=== PATIENT | female | born 1970 | race Caucasian/White ===

== ENCOUNTER 2019-05-23 14:52 | Emergency (ER) | payer OTHER ==
--- OUTSIDE RECORDS SUMMARY | 2019-05-23 14:54 | XMS REPORT | Summary of Care ---
:1970 Author Organization [facility] Address [address] [place] [id number] Care Team Providers Name Role Phone Pcp, Patient Does Not Have A Primary Care Provider Reason for Visit Reason Comments Assessment Rx Concern/Question Encounter Details Date Type Department Care Team Description 01/17/2019 Telephone [facility] FuentesNan MD Assessment; Rx Healthcare- [address] Concern/Question [address] [place] [address], [address] [place] [id number] Allergies Active Allergy Reactions Severity Noted Date Comments Penicillin Unknown - See comments 08/01/2015 documented as of this encounter (statuses as of 01/17/2019) Medications Medication Sig Dispensed Refills Start Date End Date Status FUROSEMIDE (LASIX ORAL) Take by mouth. 0 Active metoprolol Take by mouth. 0 Active chatman-hydrochlorothiaz (DUTOPROL) 50-12.5 mg Tb24 metformin ER Take 500 mg by 0 Active (GLUCOPHAGE-XR) 500 mg mouth daily with 24 hr tablet breakfast. SACCHAROMYCES BOULARDII Take by mouth. 0 Active (PROBIOTIC, S.BOULARDII, ORAL) NUTRITIONAL Take by mouth. 0 Active SUPPLEMENT/FIBER (FIBRE ORAL) aspirin E.C. (ECOTRIN) Take 325 mg by 0 Active 325 mg EC tablet mouth daily. Magnesium (MAGNACAPS) Take by mouth. 0 Active 100 mg Cap acetaminophen-codeine Take 1 tablet by 20 tablet 0 01/15/2019 Active 300-30 mg mouth every 4 tabletIndications: (four) hours as Hydrosalpinx needed for Pain (scale 7-10). diazePAM 5 mg tablet TAKE 1 TABLET BY 0 12/22/2018 Active MOUTH TWICE DAILY NEEDED. tiZANidine 4 mg tablet TAKE 1 TABLET BY 2 11/10/2018 Active MOUTH EVERY 6 HOURS NEEDED verapamil 180 mg ER TAKE 1 TABLET BY 2 12/24/2018 Active tablet MOUTH ONCE DAILY levothyroxine 150 mcg TAKE 1 TABLET BY 4 11/25/2018 Active tablet MOUTH ONCE DAILY amitriptyline 100 mg Take 100 mg by 0 Active tablet mouth at bedtime. ferrous sulfate (SLOW FE Take by mouth. 0 Active ORAL) DULCOLAX, BISACODYL, Take by mouth. 0 Active ORAL norgestimate-ethinyl Take 1 tablet by 4 Package 0 01/16/2019 Active estradiol 0.25-35 mg-mcg mouth daily. per tabletIndications: Abdominal pain, right lower quadrant documented as of this encounter (statuses as of 01/17/2019) Active Problems Problem Noted Date Leg pain, left 08/01/2015 documented as of this encounter (statuses as of 01/17/2019) Social History Tobacco Use Types Packs/Day Years Used Date Never Smoker Smokeless Tobacco: Never Used Alcohol Use Drinks/Week oz/Week Comments Never 0 Standard drinks or equivalent 0.0 Alcohol Habits Answer Date Recorded How often do you have a drink containing alcohol? Never 01/16/2019 How many drinks containing alcohol do you have on a typical Not asked day when you are drinking? How often do you have six or more drinks on one occasion? Not asked Sex Assigned at Date Recorded Not on file Job Start Date Occupation Industry Not on file Not on file Not on file Travel History Travel Start Travel End No recent travel history available. documented as of this encounter Last Filed Vital Signs Not on filedocumented in this encounter Plan of Treatment Date Type Specialty Care Team Description 01/23/2019 Office Visit Obstetrics & Gynecology Nan Fuentes MD [address] [place] [address] [place] [address] [phone] Health Maintenance Due Date Last Done Comments DTaP,Tdap,and Td Vaccines ( - 01/29/1988 Tdap) PAP SMEAR 1990 MAMMOGRAM 2009 INFLUENZA VACCINE (#1) 2019 PNEUMOCOCCAL 0-64 YEARS COMBINED Aged Out No longer eligible based on SERIES patient's age to complete this topic documented as of this encounter Results Not on filedocumented in this encounter
--- OUTSIDE RECORDS SUMMARY | 2019-05-23 14:54 | XMS REPORT ---
:1970 Author Organization [facility] Address [address] [place] [address] [address] [place] [address] Care Team Providers Name Role Phone Unavailable Unavailable Unavailable Problems This patient has no known problems. Allergies, Adverse Reactions, Alerts This patient has no known allergies or adverse reactions. Medications This patient has no known medications.
--- OUTSIDE RECORDS SUMMARY | 2019-05-23 14:54 | XMS REPORT | Summary of Care ---
:1970 Author Organization [facility] Address [address] [place] [address] Care Team Providers Name Role Phone Pcp, Patient Does Not Have A Primary Care Provider Reason for Referral Radiology Services (STAT) Status Reason Specialty Diagnoses / Referred By Referred To Procedures Contact Contact New Request Diagnostic Diagnoses RLQ abdominal pain Arcos, Jennifer Radiology Procedures US OVARY TORSION R, EMNP [address] [address] Radiology Services (STAT) Status Reason Specialty Diagnoses / Referred By Referred To Procedures Contact Contact New Request Diagnostic Diagnoses RLQ abdominal pain Arcos, Jennifer Radiology Procedures US OVARY TORSION R, EMNP [address] [address] MRI/CAT Scan (STAT) Status Reason Specialty Diagnoses / Referred By Referred To Procedures Contact Contact New Request Diagnostic Diagnoses Generalized abdominal pain Arcos, Jennifer Radiology Procedures CT ABDOMEN PELVIS W CONTRAST R, EMNP [address] [address] MRI/CAT Scan (STAT) Status Reason Specialty Diagnoses / Referred By Referred To Procedures Contact Contact New Request Diagnostic Diagnoses Generalized abdominal pain Arcos, Jennifer Radiology Procedures CT ABDOMEN PELVIS W CONTRAST R, EMNP [address] [address] Reason for Visit Reason Comments Abdominal Pain Auth/Cert Status Reason Specialty Diagnoses / Referred By Referred To Procedures Contact Contact Emergency Medicine Diagnoses LWR ABD PAIN [facility] Emergency Dept [address] [place] [address] [place] [address] Encounter Details Date Type Department Care Team Description 01/15/2019 Emergency ADC-Emergency Jennifer Arcos R, Hydrosalpinx (Primary Dx); Department EMNP Generalized abdominal pain; [address] [place] [address] [place] [address] [id number] [place], [place] [id number] Allergies Active Allergy Reactions Severity Noted Date Comments Penicillin Unknown - See comments 08/01/2015 documented as of this encounter (statuses as of 01/15/2019) Medications Medication Sig Dispensed Refills Start Date End Date Status FUROSEMIDE (LASIX ORAL) Take by mouth. 0 Active metoprolol Take by mouth. 0 Active chatman-hydrochlorothiaz (DUTOPROL) 50-12.5 mg Tb24 metformin ER Take 500 mg by 0 Active (GLUCOPHAGE-XR) 500 mg mouth daily with 24 hr tablet breakfast. levothyroxine Take 200 mcg by 0 Active (SYNTHROID) 200 mcg mouth every tablet morning. SACCHAROMYCES BOULARDII Take by mouth. 0 Active [...] as Hydrosalpinx needed for Pain (scale 7-10). documented as of this encounter (statuses as of 01/15/2019) Active Problems Problem Noted Date Leg pain, left 08/01/2015 documented as of this encounter (statuses as of 01/15/2019) Social History Tobacco Use Types Packs/Day Years Used Date Never Smoker Smokeless Tobacco: Never Used Alcohol Use Drinks/Week oz/Week Comments Not Asked 0 Standard drinks or equivalent 0.0 Sex Assigned at Date Recorded Not on file Job Start Date Occupation Industry Not on file Not on file Not on file Travel History Travel Start Travel End No recent travel history available. documented as of this encounter Last Filed Vital Signs Vital Sign Reading Time Taken Comments Blood Pressure 145/89 01/15/2019 10:03 PM CDT Pulse 80 01/15/2019 10:00 PM CDT Temperature 36.7 C (98 F) 01/15/2019 4:56 PM CDT Respiratory Rate 20 01/15/2019 10:00 PM CDT Oxygen Saturation 97% 01/15/2019 10:00 PM CDT Inhaled Oxygen Concentration - - Weight 74.4 kg (164 lb) 01/15/2019 4:56 PM CDT Height 162.6 cm (5' 4") 01/15/2019 4:56 PM CDT Body Mass Index 28.15 01/15/2019 4:56 PM CDT documented in this encounter Discharge Instructions Jennifer Cooper EMNP - 01/15/2019NO LIFE-THREATENING FINDINGS ON TODAY'S EXAM. SPECIAL INSTRUCTIONS: 1. Call Dr Fuentes's office in the morning and schedule appointment for this week 2. May take motrin 600mg every 6 hours with food for pain 3. See attached information 4. Do not take plain tylenol within 4 hours of taking Tylenol with codeine FOLLOW-UP RECOMMENDATIONS: RECOMMEND FOLLOW-UP WITH A PRIMARY CARE PROVIDER OR SPECIALIST IN 2-5 DAYS, ESPECIALLY IF NO IMPROVEMENT IN SYMPTOMS. TO FOLLOW-UP WITHIN THE [facility], TRY THESE OPTIONS (CLINIC APPOINTMENTS AVAILABLE ON [id number]-EP-TELV BASIS): 1. SCHEDULE AN APPOINTMENT ONLINE AT [email or web address] 2. OR CALL THE [facility] AT OR 3. OR CALL YOUR [facility] PHYSICIAN'S OFFICE DIRECTLY IF YOU ARE ALREADY AN ESTABLISHED [facility] PATIENT. OR, YOU MAY FOLLOW-UP WITH A PROVIDER OF YOUR CHOICE, SUCH : 1. A PHYSICIAN OF YOUR CHOICE 2. [facility], . LOCATIONS IN [facility] 3. [facility], [address] [place], [place]; RETURN TO ER FOR WORSENING OF SYMPTOMS. AttachmentsThe following attachments cannot be sent through Care Everywhere.Abdominal Pain, Adult (Dutch)Acetaminophen; Codeine tablets ( Dutch)documented in this encounter Plan of Treatment Name Type Priority Associated Diagnoses Date/Time US OVARY TORSION IMAGING STAT RLQ abdominal pain 01/15/2019 9:20 PM CDT Health Maintenance Due Date Last Done Comments DTaP,Tdap,and Td Vaccines (1 - 01/29/1988 Tdap) PAP SMEAR 1990 MAMMOGRAM 2009 INFLUENZA VACCINE (#1) 2019 PNEUMOCOCCAL 0-64 YEARS COMBINED Aged Out No longer eligible based on SERIES patient's age to complete this topic documented as of this encounter Procedures Procedure Name Priority Date/Time Associated Diagnosis Comments US OVARY TORSION STAT 01/15/2019 9:20 PM CDT RLQ abdominal pain Procedure Note - [facility], Radiant Results Inft User - 01/15/2019 9:51 PM CDT EXAM: PELVIC ULTRASOUND, TRANSABDOMINAL AND TRANSVAGINAL HISTORY: rule out torsion, see CT report; hx of partial hysterectomy COMPARISON: Same day CT abdomen and pelvis FINDINGS: UTERUS: Postsurgical changes of hysterectomy. OVARIES: Postsurgical changes of left oophorectomy. The right ovary measures 6.9 x 3.2 x 3.3 cm, volume 37 mL and demonstrates normal arterial and venous waveforms. The ovary is inseparable from an elongated hypoechoic cystic structure which measures approximately 7.4 x 3.2 x 3.6 cm. A few folded configuration with "C shapes" are best appreciated on the cine images. No definite septations are visualized. No free fluid. IMPRESSION The right ovary abuts an elongated hypoechoic cystic structure without encasement, favoring hydrosalpinx over ovarian cyst. If further imaging is necessary, consider MRI pelvis, female pelvis protocol. CT ABDOMEN PELVIS W STAT 01/15/2019 6:31 PM Generalized Results for this CONTRAST CDT abdominal pain procedure are in the results section. CBC WITH DIFFERENTIAL STAT 01/15/2019 5:27 PM Generalized Results for this CDT abdominal pain procedure are in the results section. POCT TEST DEONNA 01/15/2019 5:27 PM Generalized Results for this CDT abdominal pain procedure are in the results section. URINALYSIS STAT 01/15/2019 5:27 PM Generalized Results for this CDT abdominal pain procedure are in the results section. COMP. METABOLIC PANEL STAT 01/15/2019 5:27 PM Generalized Results for this (36703) CDT abdominal pain procedure are in the results section. LIPASE STAT 01/15/2019 5:27 PM Generalized Results for this CDT abdominal pain procedure are in the results section. documented in this encounter Results CT ABDOMEN PELVIS W CONTRAST (01/15/2019 6:31 PM CDT) Specimen Impressions Performed At PACS/VR/DOSE 1.Focal wall thickening just distal to the gastrojejunal anastomosis with mild fat stranding around this area. Enlarged mesenteric lymph nodes adjacent to and draining this area measuring up to 1.1 cm. Endoscopic evaluation is recommended. 2. A 1.7 cm cystic peritoneal nodule on the right posterolateral abdomen, indeterminate. 3.A 10.2 cm tubular structure arising from the right ovary may represent a large ovarian cyst. 4. Multiple bilateral calcified and noncalcified pulmonary nodules measure up to 5 mm, nonspecific can be seen with pneumoconiosis, calcified metastatic disease is a possibility but less likely. PET/CT also can be considered for further evaluation of these findings. Mirian Dudley MD., have reviewed this study and agree with the above report. Narrative Performed At EXAM: CT ABDOMEN AND PELVIS WITH CONTRAST PACS/VR/DOSE HISTORY: Generalized abdominal pain. COMPARISON: None. DOSE: DLP: 386 mGycm TECHNIQUE AND FINDINGS: Contiguous axial imaging from the level of the lung bases through the pubic symphysis was performed after the uncomplicated administration of 120 cc of intravenous Omnipaque contrast. Coronal and sagittal reconstructions were obtained.Auto mA and/or iterative reconstruction were used to reduce radiation dose. FINDINGS: LOWER THORAX: Bilateral multiple calcified and noncalcified nodules measure up to 5 mm. LIVER: No focal hepatic lesions.Normal contour. GALLBLADDER AND BILIARY TREE: No biliary ductal dilation.No gallbladder wall thickening. SPLEEN: No splenomegaly. PANCREAS: No ductal dilation or masses. ADRENAL GLANDS: No adrenal nodules. KIDNEYS: No hydronephrosis, stones, or masses. PERITONEUM AND RETROPERITONEUM: No free air or fluid. A 1.7 cm fluid attenuation structure arises from the peritoneum (3:67). LYMPH NODES: No lymphadenopathy. GI TRACT: Postsurgical changes of gastric bypass. Focal wall thickening is seen just distal to the gastrojejunal anastomosis (3:55) with mild fat stranding around this area. Enlarged mesenteric lymph nodes adjacent to and draining this area measuring up to 1.1 cm (3:66, 70, 71). Postsurgical changes in the small bowel is seen also at the pelvic level (3: 115-119) Normal appendix. PELVIS/BLADDER: A 10.3 x3.3 cm tubular fluid attenuation structure is seen in the right adnexal location contains a thin internal septation. This may represent an ovarian cyst . Status post hysterectomy. Bladder wall is mildly thickened likely due to underdistention. VESSELS: Unremarkable. BONES AND SOFT TISSUES: No suspicious lytic or sclerotic bony lesions. Procedure Note [facility], Radiant Results Inft User - 01/15/2019 10:26 PM CDT EXAM: CT ABDOMEN AND PELVIS WITH CONTRAST HISTORY: Generalized abdominal pain. COMPARISON: None. DOSE: DLP: 386 mGycm TECHNIQUE AND FINDINGS: Contiguous axial imaging from the level of the lung bases through the pubic symphysis was performed after the uncomplicated administration of 120 cc of intravenous Omnipaque contrast. Coronal and sagittal reconstructions were obtained. Auto mA and/or iterative reconstruction were used to reduce radiation dose. FINDINGS: LOWER THORAX: Bilateral multiple calcified and noncalcified nodules measure up to 5 mm. LIVER: No focal hepatic lesions. Normal contour. GALLBLADDER AND BILIARY TREE: No biliary ductal dilation. No gallbladder wall thickening. SPLEEN: No splenomegaly. PANCREAS: No ductal dilation or masses. ADRENAL GLANDS: No adrenal nodules. KIDNEYS: No hydronephrosis, stones, or masses. PERITONEUM AND RETROPERITONEUM: No free air or fluid. A 1.7 cm fluid attenuation structure arises from the peritoneum (3:67). LYMPH NODES: No lymphadenopathy. GI TRACT: Postsurgical changes of gastric bypass. Focal wall thickening is seen just distal to the gastrojejunal anastomosis (3:55) with mild fat stranding around this area. Enlarged mesenteric lymph nodes adjacent to and draining this area measuring up to 1.1 cm (3:66, 70, 71). Postsurgical changes in the small bowel is seen also at the pelvic level (3: 115-119) Normal appendix. PELVIS/BLADDER: A 10.3 x3.3 cm tubular fluid attenuation structure is seen in the right adnexal location contains a thin internal septation. This may represent an ovarian cyst . Status post hysterectomy. Bladder wall is mildly thickened likely due to underdistention. VESSELS: Unremarkable. BONES AND SOFT TISSUES: No suspicious lytic or sclerotic bony lesions. IMPRESSION 1. Focal wall thickening just distal to the gastrojejunal anastomosis with mild fat stranding around this area. Enlarged mesenteric lymph nodes adjacent to and draining this area measuring up to 1.1 cm. Endoscopic evaluation is recommended. 2. A 1.7 cm cystic peritoneal nodule on the right posterolateral abdomen, indeterminate. 3. A 10.2 cm tubular structure arising from the right ovary may represent a large ovarian cyst. 4. Multiple bilateral calcified and noncalcified pulmonary nodules measure up to 5 mm, nonspecific can be seen with pneumoconiosis, calcified metastatic disease is a possibility but less likely. PET/CT also can be considered for further evaluation of these findings. I, Rosemarie Pruitt MD., have reviewed this study and agree with the above report. Performing Organization Address City/State/Zipcode Phone Number PACS/VR/DOSE LIPASE (01/15/2019 5:27 PM CDT) Pathologist [facility] LIPASE 46 0 - 220 U/L [facility] Specimen Blood - VENOUS Performing Organization Address City/[facility]/Zipcode Phone Number [facility] CLIA: [id number], [address] [place] [address] POCT TEST (01/15/2019 5:27 PM CDT) [facility] POCT PREG negative On board controls acceptable present with C Line POCT PREG LOT # [id number] POCT PREG TEST DATE 2020-05-15 Specimen Urine - URINE, CLEAN CATCH URINALYSIS (01/15/2019 5:27 PM CDT) Pathologist [facility] APPEARANCE Clear Clear [facility] COLOR Yellow Yellow [facility] PH 6.0 4.8 - 8.0 [facility] SP GRAVITY 1.020 1.003 - 1.030 [facility] GLU U QUAL Negative Negative [facility] BLOOD Negative Negative [facility] KETONES Negative Negative [facility] PROTEIN Negative Negative [facility] UROBILIN 0.2 mg/dL 0-1.0 mg/dL [facility] BILIRUBIN Negative Negative [facility] NITRITE Negative Negative [facility] LEUK ANNIE Negative Negative [facility] RBC/HPF 0 0 - 3 HPF [facility] WBC/HPF 1 0 - 5 HPF [facility] BACTERIA Negative Negative [facility] SQ EPITH 1 HPF [facility] CA OXALATE 1 <=1 HPF [facility] Specimen Urine - URINE, CLEAN CATCH Performing Organization Address City/State/Zipcode Phone Number [facility] CLIA: [id number], [address] [place] [address] COMP. METABOLIC PANEL (08182) (01/15/2019 5:27 PM CDT) NA 142 135 - 145 [facility] mmol/L [facility] K 3.4 (L) 3.5 - 5.0 [facility] mmol/L [facility] CL 105 98 - 108 mmol/L [facility] CO2 TOTAL 22 (L) 23 - 31 mmol/L [facility] AGAP 15 2 - 16 [facility] BUN 11 7 - 23 mg/dL [facility] GLUCOSE 104 70 - 110 mg/dL [facility] CREATININE 0.87 0.50 - 1.04 [facility] mg/dL [facility] TOTAL BILI 0.4 0.1 - 1.1 mg/dL [facility] CALCIUM 9.8 8.6 - 10.6 [facility] mg/dL [facility] T PROTEIN 7.6 6.3 - 8.2 g/dL [facility] ALBUMIN 4.2 3.5 - 5.0 g/dL [facility] ALK PHOS 112 34 - 122 U/L [facility] ALT(SGPT) 22 9 - 51 U/L [facility] AST(SGOT) 33 13 - 40 U/L [facility] eGFR Calculation 69.2 mL/min/1.73m2 [facility] ([facility] LABORATORY Jamaican) eGFR Calculation 83.9 mL/min/1.73m2 [facility] () [facility] Specimen Blood - VENOUS Narrative Performed At Association of Glomerular Filtration Rate (GFR) [facility] and Staging of Kidney Disease* + + +- + | GFR (mL/min/1.73 m2)| With Kidney Damage|Without Kidney Damage + + +- + |>90| Stage one| Normal + + +- + |60-89|S tage two| Decreased GFR + + +- + |30-59|S tage three| Stage three + + +- + |15-29|S tage four | Stage four + + +- + |<15 (or dialysis)|Stage five | Stage five + + +- + *Each stage assumes the associated GFR level has been in effect for at least three months.Stages 1 to 5, with or without kidney disease, indicate chronic kidney disease. Notes: Determination of stages one and two (with eGFR >59mL/min/1.73 m2) requires estimation of kidney damage for at least three months as defined by structural or functional abnormalities of the kidney, manifested by either: Pathological abnormalities or Markers of kidney damage (including abnormalities in the composition of the blood or urine or abnormalities in imaging tests). Performing Organization Address City/State/Zipcode Phone Number [facility] CLIA: [id number], [address] [place] [address] CBC WITH DIFFERENTIAL (01/15/2019 5:27 PM CDT) WBC 7.73 4.30 - 11.10 [facility] 10*3/L [facility] RBC 4.79 3.93 - 5.25 [facility] 10*6/L [facility] HGB 14.6 11.6 - 15.0 g/dL [facility] HCT 42.8 35.7 - 45.2 % [facility] MCV 89.4 80.6 - 95.5 fL [facility] MCH 30.5 25.9 - 32.8 pg [facility] MCHC 34.1 31.6 - 35.1 g/dL [facility] RDW-SD 42.2 39.0 - 49.9 fL [facility] RDW-CV 12.9 12.0 - 15.5 % [facility] PLT 349 166 - 358 [facility] 10*3/L [facility] MPV 9.9 9.5 - 12.9 fL [facility] NRBC/100 WBC 0.0 0.0 - 10.0 /100 [facility] WBCs [facility] NRBC x10^3 <0.01 10*3/L [facility] GRAN MAT (NEUT) % 59.9 % [facility] IMM GRAN % 0.30 % [facility] LYMPH % 31.8 % [facility] MONO % 6.3 % [facility] EOS % 0.9 % [facility] BASO % 0.8 % [facility] GRAN MAT x10^3(ANC) 4.63 1.88 - 7.09 [facility] 10*3/uL [facility] IMM GRAN x10^3 <0.03 0.00 - 0.06 [facility] 10*3/uL [facility] LYMPH x10^3 2.46 1.32 - 3.29 [facility] 103/uL [facility] MONO x10^3 0.49 0.33 - 0.[address]uL [facility] EOS x10^3 0.07 0.03 - 0.[address]/uL [facility] BASO x10^3 0.06 0.01 - 0.[address] LABORATORY Specimen Blood - VENOUS Performing Organization Address City/State/Zipcode Phone Number [facility] CLIA: [id number], [address] [place] [address] documented in this encounter Visit Diagnoses Diagnosis Hydrosalpinx - Primary Chronic salpingitis and oophoritis Generalized abdominal pain Abdominal pain, generalized RLQ abdominal pain Abdominal pain, right lower quadrant documented in this encounter Administered Medications Medication Order MAR Action Action Date Dose Rate Site acetaminophen-codeine (TYLENOL Given 01/15/2019 7:30 PM CDT 1 tablet #3) 300-30 mg tablet 1 tablet 1 tablet, Oral, ONCE, 1 dose, Tue01/15/19 at 2030, DEONNA acetaminophen-codeine (TYLENOL #3) 300-30 Given 01/15/2019 10:21 PM CDT 1 tablet mg tablet 1 tablet 1 tablet, Oral, ONCE, 1 dose, Tue01/15/19 at 2315, DEONNA cloNIDine (CATAPRES) tablet 0.2 mg Given 01/15/2019 8:35 PM CDT 0.2 mg 0.2 mg, Oral, ONCE, 1 dose, Tue01/15/19 at 2145, STAT FENTanyl PF (SUBLIMAZE (PF)) injection 50 Given 01/15/2019 9:37 PM CDT 50 mcg mcg 50 mcg, Slow IV Push, ONCE, 1 dose, Tue01/15/19 at 2245, Routine iohexol (OMNIPAQUE 350 BULK-150 mL) Given 01/15/2019 6:30 PM CDT 120 mL injection 120 mL 120 mL, Intravenous, ONCE, 1 dose, Tue01/15/19 at 1845, Routine ketorolac (TORADOL) injection 15 mg Given 01/15/2019 10:21 PM CDT 15 mg 15 mg, Slow IV Push, ONCE, 1 dose, Tue01/15/19 at 2315, Routine, sociology faculty member approving Restricted medication: JENNIFER ARCOS metoclopramide HCl (REGLAN) injection 10 mg Given 01/15/2019 10:28 PM CDT 10 mg 10 mg, Slow IV Push, ONCE, 1 dose, Tue01/15/19 at 2330, DEONNA morpHINE injection 4 mg Given 01/15/2019 5:25 PM CDT 4 mg 4 mg, Slow IV Push, ONCE, 1 dose, Tue01/15/19 at 1815, STAT morpHINE injection 4 mg Given 01/15/2019 6:04 PM CDT 4 mg 4 mg, Slow IV Push, ONCE, 1 dose, Tue01/15/19 at 1915, STAT morpHINE injection 4 mg Given 01/15/2019 7:30 PM CDT 4 mg 4 mg, Slow IV Push, ONCE, 1 dose, Tue01/15/19 at 2030, STAT NaCl 0.9% (NS) bolus infusion New Bag 01/15/2019 5:24 PM CDT 1,000 mL 999 mL/hr 1,000 mL at 999 mL/hr, 1,000 mL, IV Infusion, ONCE, 1 dose, Tue01/15/19 at 1730, DEONNA ondansetron (ZOFRAN (PF)) injection 4 mg Given 01/15/2019 5:25 PM CDT 4 mg 4 mg, Slow IV Push, ONCE, 1 dose, Tue01/15/19 at 1815, DEONNA ondansetron (ZOFRAN (PF)) injection 4 mg Given 01/15/2019 7:37 PM CDT 4 mg 4 mg, Slow IV Push, ONCE, 1 dose, Tue01/15/19 at 2045, DEONNA documented in this encounter
--- OUTSIDE RECORDS SUMMARY | 2019-05-23 14:54 | XMS REPORT | Summary of Care ---
:1970 Author Organization [facility] - Health Address [address] [place] [address] Care Team Providers Name Role Phone Pcp, Patient Does Not Have A Primary Care Provider Encounter Details Date Type Department Care Team Description 01/16/2019 Orders Only [facility] Doctor Unassigned, No 301 [facility] [place] [address] [address] [place] [address] Allergies Active Allergy Reactions Severity Noted Date Comments Penicillin Unknown - See comments 08/01/2015 documented as of this encounter (statuses as of 01/16/2019) Medications Medication Sig Dispensed Refills Start Date [...] as of this encounter (statuses as of 01/16/2019) Active Problems Problem Noted Date Leg pain, left 08/01/2015 documented as of this encounter (statuses as of 01/16/2019) Social History Tobacco Use Types Packs/Day Years [...] filedocumented in this encounter Plan of Treatment Health Maintenance Due Date Last Done Comments DTaP,Tdap,and Td Vaccines (1 - 01/29/1988 Tdap) PAP SMEAR 1990 MAMMOGRAM 2009 INFLUENZA VACCINE (#1) 2019 PNEUMOCOCCAL 0-64 YEARS COMBINED Aged Out No longer eligible based on SERIES patient's age to complete this topic documented as of this encounter Procedures Procedure Name Priority Date/Time Associated Diagnosis Comments ASSIGNMENT OF BENEFITS Routine 01/16/2019 12:59 PM CDT documented in this encounter Results Not on filedocumented in this encounter
--- OUTSIDE RECORDS SUMMARY | 2019-05-23 14:55 | XMS REPORT | Summary of Care ---
:1970 Author Organization [facility] - Health Address [address] [place] [address] Care Team Providers Name Role Phone Pcp, Patient Does Not Have A Primary Care Provider Encounter Details Date Type Department Care Team Description 01/17/2019 Orders Only [facility] Doctor Unassigned, No 301 [facility] [place] [address] [address] [place] [address] Allergies Active Allergy Reactions Severity Noted Date [...] Visit Obstetrics & Gynecology Nan Fuentes MD [address] [place] [address] [address] [place], [place] [id number] Health Maintenance Due Date Last Done Comments DTaP,Tdap,and Td Vaccines (1 - 01/29/1988 Tdap) PAP SMEAR 1990 MAMMOGRAM 2009 INFLUENZA VACCINE (#1) 2019 PNEUMOCOCCAL 0-64 YEARS COMBINED Aged Out No longer eligible based on SERIES patient's age to complete this topic documented as of this encounter Procedures Procedure Name Priority Date/Time Associated Diagnosis Comments NOTICE OF PRIVACY Routine 01/17/2019 3:01 PM CDT PRACTICES CONSENT/REFUSAL FOR Routine 01/17/2019 3:01 PM CDT DIAGNOSIS AND TREATMENT documented in this encounter Results Not on filedocumented in this encounter
--- OUTSIDE RECORDS SUMMARY | 2019-05-23 14:55 | XMS REPORT | Summary of Care ---
:1970 Author Organization [facility] Address [address] [place] [address] Care Team Providers Name Role Phone Pcp, Patient Does Not Have A Primary Care Provider Reason for Visit Reason Comments ER F/U Encounter Details Date Type Department Care Team Description 01/16/2019 Office Visit [facility] Women's FuentesNan MD Abdominal pain, right lower quadrant (Primary Dx); Healthcare- [address] Pelvic [address] 208 [facility] 208 [place] [address] [phone] Allergies Active Allergy Reactions Severity Noted Date Comments Penicillin Unknown - See comments 08/01/2015 documented as of this encounter (statuses as of 01/18/2019) Medications Medication Sig Dispensed Refills Start Date End Date Status FUROSEMIDE (LASIX Take by 0 Suspended ORAL) mouth. metoprolol Take by 0 Suspended chatman-hydrochlorothiaz mouth. (DUTOPROL) 50-12.5 mg Tb24 metformin ER Take 500 mg 0 Suspended (GLUCOPHAGE-XR) 500 by mouth mg 24 hr tablet daily with breakfast. levothyroxine Take 200 mcg 0 01/16/2019 Discontinued (SYNTHROID) 200 mcg by mouth tablet every morning. SACCHAROMYCES Take by 0 Suspended BOULARDII mouth. (PROBIOTIC, S.BOULARDII, ORAL) NUTRITIONAL Take by 0 Suspended SUPPLEMENT/FIBER mouth. (FIBRE ORAL) aspirin E.C. Take 325 mg 0 Suspended (ECOTRIN) 325 mg EC by mouth tablet daily. Magnesium Take by 0 Suspended (MAGNACAPS) 100 mg mouth. Cap acetaminophen-codein Take 1 tablet 20 tablet 0 01/15/2019 Suspended e 300-30 mg by mouth tabletIndications: every 4 Hydrosalpinx (four) hours as needed for Pain (scale 7-10). diazePAM 5 mg tablet TAKE 1 TABLET 0 12/22/2018 Suspended BY MOUTH TWICE DAILY NEEDED. estradiol 1 mg TAKE 1 TABLET 2 12/24/2018 01/16/2019 Discontinued tablet BY MOUTH ONCE DAILY FOR 30 DAYS tiZANidine 4 mg TAKE 1 TABLET 2 11/10/2018 Suspended tablet BY MOUTH EVERY 6 HOURS NEEDED verapamil 180 mg ER TAKE 1 TABLET 2 12/24/2018 Suspended tablet BY MOUTH ONCE DAILY levothyroxine 150 TAKE 1 TABLET 4 11/25/2018 Suspended mcg tablet BY MOUTH ONCE DAILY amitriptyline 100 mg Take 100 mg 0 Suspended tablet by mouth at bedtime. ferrous sulfate Take by 0 Suspended (SLOW FE ORAL) mouth. DULCOLAX, BISACODYL, Take by 0 Suspended ORAL mouth. norgestimate-ethinyl Take 1 tablet 4 Package 0 01/16/2019 Suspended estradiol 0.25-35 by mouth mg-mcg per daily. tabletIndications: Abdominal pain, right lower quadrant documented as of this encounter (statuses as of 01/18/2019) Active Problems Problem Noted Date Abdominal pain 01/17/2019 Leg pain, left 08/01/2015 documented as of this encounter (statuses as of 01/18/2019) Social History Tobacco Use Types Packs/Day Years [...] Sign Reading Time Taken Comments Blood Pressure 141/92 01/16/2019 2:30 PM CDT Pulse 84 01/16/2019 2:30 PM CDT Temperature 36.8 C (98.2 F) 01/16/2019 1:12 PM CDT Respiratory Rate 20 01/16/2019 1:12 PM CDT Oxygen Saturation - - Inhaled Oxygen Concentration - - Weight 76.7 kg (169 lb) 01/16/2019 1:12 PM CDT Height 162.6 cm (5' 4") 01/16/2019 1:12 PM CDT Body Mass Index 29.01 01/16/2019 1:12 PM CDT documented in this encounter Progress Notes Nan Fuentes MD - 01/16/2019 1:00 PM CDT Chief complaint: Chief Complaint Patient presents with ER F/U HPI Deena Douglass is a 48 year old female presented for ER follow-up. Patient was seen at [facility] ER on 01/15/19 for RLQ abdominal pain. Pain since 01/03/19, located in the RLQ. Pain got worse since Tuesday (4 days ago ). Stabbing, constant, walking makes it worse, improved with morphine and fentanyl in the ER. Took Tylenol and Ibuprofenand Tylenol #3 x 2 prior to this visit. Was 10/10 in severity before the medications and currently 8/10. A couple of years ago, experienced the same pain but not as severe. States that she experience similar pain, but not as bad, for 5-7 days each month, which coincide with her daughter's period. But now the pain continues even when her daughter is not on her period. + Nausea. No vomiting. Yesterday, BM soft and normal. Denies UTIs symptoms. Histories OB History Para Term AB Living 1 1 1 SAB TAB Ectopic Multiple Live Births 1 # Outcome Date GA Lbr Tor/2nd Weight Sex Delivery Anes PTL Lv 1 29w0d 1389 g CS-Unspec Obstetric Comments Past Medical History: Diagnosis Date Anemia during Anesthesia complication Does not stay under CHF (congestive heart failure) Diabetes mellitus Resolved Endometriosis Hypertension 05/2018 Leg pain, left 08/01/2015 Lung nodules Thyroid disease Hypothyroid Family History Problem Relation Age of Onset [place] (myocardial infarction) Mother Heart Mother Breast Cancer Maternal Grandmother Breast Cancer Paternal Grandmother Arthritis NoFHx Asthma NoFHx defects NoFHx Colon Cancer NoFHx Ovarian Cancer NoFHx Uterine Cancer NoFHx Cancer NoFHx Depression NoFHx Diabetes NoFHx Genetic NoFHx High cholesterol NoFHx Hypertension NoFHx Mental retardation NoFHx Neurological NoFHx Osteoporosis NoFHx Psychiatry NoFHx Other - see comments NoFHx Family Status Relation Name Status Mo Alive Fa MGMo (Not Specified) PGMo (Not Specified) NoFHx (Not Specified) Past Surgical History: Procedure Laterality Date SECTION COLONOSCOPY 2016 Arteaga / unsure HYSTERECTOMY LAPAROSCOP GASTRIC BYPASS Mar 2018 complete bypass SALPINGO-OOPHORECTOMY Left Side Social History Socioeconomic History Marital status: Spouse name: Not on file Number of children: Not on file Years of education: Not on file Highest education level: Not on file Occupational History Not on file Social Needs Financial resource strain: Not on file Food insecurity: Worry: Not on file Inability: Not on file Transportation needs: Medical: Not on file Non-medical: Not on file Tobacco Use Smoking status: Never Smoker Smokeless tobacco: Never Used Substance and Sexual Activity Alcohol use: Never Alcohol/week: 0.0 oz Frequency: Never Drug use: Never Sexual activity: Not Currently Lifestyle Physical activity: Days per week: Not on file Minutes per session: Not on file Stress: Not on file Relationships Social connections: Talks on phone: Not on file Gets together: Not on file Attends presybeterian service: Not on file Active member of club or organization: Not on file Attends meetings of clubs or organizations: Not on file Relationship status: Not on file Intimate partner violence: Fear of current or ex partner: Not on file Emotionally abused: Not on file Physically abused: Not on file Forced sexual activity: Not on file Other Topics Concern Not on file Social History Narrative Denies domestic or physical violence within the home Evangelical Preference: Confucianism Social History Substance and Sexual Activity Sexual Activity Not Currently Labs I have reviewed the patient's labs. Radiology EXAM: CT ABDOMEN AND PELVIS WITH CONTRAST on 01/15/19 HISTORY: Generalized abdominal pain. COMPARISON: None. DOSE: [...] considered for further evaluation of these findings. EXAM: PELVIC ULTRASOUND, TRANSABDOMINAL AND TRANSVAGINAL on 01/15/19 HISTORY: rule out torsion, see CT report; hx of partial hysterectomy COMPARISON: Same day CT abdomen and pelvis FINDINGS: UTERUS: Postsurgical changes of hysterectomy. OVARIES: Postsurgical changes of left oophorectomy. A tubular anechoic structure measuring approximately 7.3 x 3.2 cm is seen in the right lower quadrant with weak vascular flow is detected peripherally. No separate right ovary is identified. No free fluid. IMPRESSION A tubular anechoic structures in the right lower quadrant with weak vascular flow peripherally. No separate right ovary is identified. Ovarian torsion cannot be excluded. Allergies Deena is allergic to penicillin. Medications Deena has a current medication list which includes the following prescription( s): amitriptyline, diazepam, bisacodyl, estradiol, ferrous sulfate, levothyroxine, acetaminophen-codeine, nutritional supplement/fiber, tizanidine, verapamil, aspirin e.c., furosemide, magnesium, metformin er, metoprolol chatman- hydrochlorothiaz, and saccharomyces boulardii. Review of Systems Constitutional: Negative for fever. Gastrointestinal: See HPI Genitourinary: See HPI BP (!) 150/95 (BP Location: Left arm, Patient Position: Sitting, BP CUFF SIZE: Adult Medium) | Pulse 89 | Temp 36.8 C (98.2 F) (Oral) | Resp 20 | Ht 5 ' 4" (1.626 m) | Wt 169 lb (76.7 kg) | BMI 29.01 kg/m Pregravid BMI: Could not be calculated Physical Exam Vitals reviewed. Constitutional: She is oriented to person, place, and time. Her body habitus is obese. Cardiovascular: Regular rate and rhythm. Pulmonary/Chest: Breath sounds clear to auscultation. Normal inspiratory effort. Abdominal: Abdomen is soft. Tenderness (in the RLQ) present. There is no rigidity and no guarding. No hernia palpated or inspected. Multiple surgical scars, no rebound, active BS Neuro/Psychiatric: She has a normal mood and affect. She is oriented to person, place, and time. Skin: Skin normal. No rash present. External genitalia: Normal external genitalia appropriate for age. Cervix: Cervix absent. Uterus: Uterus absent. Adnexa: Right adnexa tenderness. Left adnexa without tenderness or mass. Assessment/Plan Abdominal pain, right lower quadrant (primary encounter diagnosis) Pelvic mass Comment: RLQ pain may be secondary to the pelvic mass noted on imaging as above. Pelvic mass can behydrosalpinx versus ovarian cyst and torsion cannot be excluded. Abdominal exam today revealed mildtenderness on palpation; no acute abdomen on exam. Discussed extensively with patient, her ,and her daughter regarding findings pertaining to her pelvic mass and discuss treatment options including observation and repeating the USG in a couple of weeks to assess the mass versus surgery if pain persists/worsens. Risks/benefits discussed. Patient elected for expectant management at this time. Strong ER precautions given. Also, patient reports monthly pain that coincided with her daughter's period. Pain may also have a component of Mittleschmerz. Discussed about OCPs for ovarian suppression. Patient is currently taking estradiol 1 mg daily for vasomotor symptoms. Discussed that she needs to discontinue estradiol ifgoing to start OCPs. Patient denies self or family history of thromboembolic disease or thrombophilia , migraine headache. States that she does have occasional severe ROMAN sometimes but it is not migraines. Risks include but not limited to increase risk of thromboembolic disease, headache, weight gain, mood lability, and breast cancer. Decrease risks of ovarian cancer, colon cancer, and endometrial cancer. Patient desires a trial of OCPs Plan: norgestimate-ethinyl estradiol 0.25-35 mg-mcg per tablet; Tylenol/Motrin/Tylenol #3 PRN pain Return to clinic in 1 weeks for follow-up Discussed treatment options. Medications as ordered. Reviewed patient instructions and provided printed copy. This visit involved counseling and coordination of care that comprised more than 50% of the visit time. I spent 60+ minute(s) total time with the patient. Of that time, 25 minute(s) was spent on history and exam, and 35+ minute(s) was spent counseling the patient regarding risks and benefits of treatment, surgical options, treatment options and prevention. Nan Fuentes MD 01/18/2019 2:04 AM documented in this encounter Plan of Treatment Date Type Specialty Care Team Description 01/23/2019 Office Visit Obstetrics & Gynecology Nan Fuentes MD [address] [place] [address] [place] [address] Health Maintenance Due Date Last Done Comments DTaP,Tdap,and Td Vaccines (1 - 01/29/1988 Tdap) PAP SMEAR 1990 MAMMOGRAM 2009 INFLUENZA VACCINE (#1) 2019 PNEUMOCOCCAL 0-64 YEARS COMBINED Aged Out No longer eligible based on SERIES patient's age to complete this topic documented as of this encounter Results Not on filedocumented in this encounter Visit Diagnoses Diagnosis Abdominal pain, right lower quadrant - Primary Pelvic mass Abdominal or pelvic swelling, mass or lump, unspecified site documented in this encounter
--- OUTSIDE RECORDS SUMMARY | 2019-05-23 14:55 | XMS REPORT | Summary of Care ---
:1970 Author Organization [facility] Address [address] [place] [address] Care Team Providers Name Role Phone Pcp, Patient Does Not Have A Primary Care Provider Reason for Visit Reason Comments ER F/U Encounter Details Date Type Department Care Team Description 01/16/2019 Office Visit [facility] Women's FuentesNan MD Abdominal pain, right lower quadrant (Primary Dx); Healthcare- [address] Pelvic [address] 208 [facility] 208 [place] [address] [phone] Allergies Active Allergy Reactions Severity Noted Date [...] for ER follow-up. Patient was seen at [facility] ER on 01/15/19 for RLQ abdominal pain. [...] file Gets together: Not on file Attends latter day service: Not on file Active member of [...] domestic or physical violence within the home Jain Preference: Protestant Social History Substance and Sexual Activity Sexual [...] Visit Obstetrics & Gynecology Nan Fuentes MD [address] [place] [address] [place] [address] Health Maintenance Due Date Last [...]
--- OUTSIDE RECORDS SUMMARY | 2019-05-23 14:56 | XMS REPORT | Summary of Care ---
:1970 Author Organization [facility] - Health Address [address] [place] [id number] Care Team Providers Name Role Phone Marti Morocho Primary Care Provider Reason for Visit Reason Comments Transition Of Care Encounter Details Date Type Department Care Team Description 01/23/2019 Transition of Care [facility] Ashlee Clarek, Transition Of Care Health Network- RN [address] [id number] Allergies Active Allergy Reactions Severity Noted Date Comments Penicillin Unknown - See comments 08/01/2015 documented as of this encounter (statuses as of 01/23/2019) Medications Medication Sig Dispensed Refills Start Date [...] by mouth. 0 Active 100 mg Cap diazePAM 5 mg tablet TAKE 1 TABLET [...] tablet mouth at bedtime. ferrous sulfate (SLOW Take by mouth. 0 Active FE ORAL) DULCOLAX, BISACODYL, Take by mouth. 0 Active ORAL acetaminophen 325 mg Take 2 tablets by 30 tablet 1 01/19/2019 Active tabletIndications: mouth every 6 Right lower quadrant (six) hours as abdominal pain, Pelvic needed for Pain mass (scale 1-3) or Pain (scale 4-6). HYDROcodone-acetaminoph Take 1 tablet by 15 tablet 0 01/19/2019 Active en 5-325 mg mouth every 6 tabletIndications: (six) hours as Right lower quadrant needed for Pain abdominal pain, Pelvic (scale 4-6). mass ibuprofen 600 mg Take 1 tablet by 30 tablet 1 01/19/2019 Active tabletIndications: mouth every 6 Right lower quadrant (six) hours as abdominal pain, Pelvic needed for Pain mass (scale 1-3) or Pain (scale 4-6). estradiol (ESTRACE) 1 Take 1 tablet by 60 tablet 2 01/22/2019 Active mg tabletIndications: mouth daily. Pelvic mass rivaroxaban Take 1 tablet by 30 tablet 0 01/22/2019 Active tabletIndications: Left mouth daily. arm swelling documented as of this encounter (statuses as of 01/23/2019) Active Problems Problem Noted Date Superficial venous thrombosis of arm, left 01/21/2019 Pelvic mass 01/18/2019 Obesity (BMI 30-39.9) 01/18/2019 Abdominal pain 01/17/2019 Leg pain, left 08/01/2015 documented as of this encounter (statuses as of 01/23/2019) Social History Tobacco Use Types Packs/Day Years [...] Treatment Date Type Specialty Care Team Description 01/25/2019 Nurse Visit Obstetrics & Gynecology Nan Fuentes MD [address] [place] [address] DR. Alberto LAUREL [address] [phone] Nurse, Cm Women's Health Health Maintenance Due Date Last Done Comments DTaP,Tdap,and Td Vaccines (1 - 01/29/1988 Tdap) PAP SMEAR 1990 MAMMOGRAM 2009 INFLUENZA VACCINE (#1) 2019 04/25/2017 PNEUMOCOCCAL 0-64 YEARS COMBINED Aged Out No longer eligible based on SERIES patient's age to complete this topic documented as of this encounter Results Not on filedocumented in this encounter Insurance Payer Benefit Plan / Subscriber ID Effective Phone Address Type Group Dates MEDICAID MEDICAID PENDING 2019-[address] Pending PENDING PENDING [place] [address] documented as of this encounter
--- OUTSIDE RECORDS SUMMARY | 2019-05-23 14:56 | XMS REPORT | Summary of Care ---
:1970 Author Organization [facility] Address [address] [place] [address] Care Team Providers Name Role Phone Marti Morocho Primary Care Provider Reason for Visit Reason Comments Error See by PA Encounter Details Date Type Department Care Team Description 01/25/2019 Nurse Visit [facility]'s Fuentes, Nan Bailey MD [address] [place] [address] [address]. Darci [address] [place] [address] [facility] Healthcare- [place] Nurse, [facility] ENCOUNTER--DISREGARD [address] [place] [address], (Primary Dx) [address] [place] [address] Allergies Active Allergy Reactions Severity Noted Date Comments Penicillin Unknown - See comments 08/01/2015 documented as of this encounter (statuses as of 01/25/2019) Medications Medication Sig Dispensed Refills Start Date End Date Status metoprolol Take by 0 Active chatman-hydrochlorothiaz mouth. (DUTOPROL) 50-12.5 mg Tb24 metformin ER Take 500 mg 0 Active (GLUCOPHAGE-XR) 500 by mouth mg 24 hr tablet daily with breakfast. SACCHAROMYCES Take by 0 Active BOULARDII mouth. (PROBIOTIC, S.BOULARDII, ORAL) NUTRITIONAL Take by 0 Active SUPPLEMENT/FIBER mouth. (FIBRE ORAL) diazePAM 5 mg tablet TAKE 1 TABLET 0 12/22/2018 Active BY MOUTH TWICE DAILY NEEDED. tiZANidine 4 mg TAKE 1 TABLET 2 11/10/2018 Active tablet BY MOUTH EVERY 6 HOURS NEEDED verapamil 180 mg ER TAKE 1 TABLET 2 12/24/2018 Active tablet BY MOUTH ONCE DAILY levothyroxine 150 TAKE 1 TABLET 4 11/25/2018 Active mcg tablet BY MOUTH ONCE DAILY amitriptyline 100 mg Take 100 mg 0 Active tablet by mouth at bedtime. ferrous sulfate Take by 0 Active (SLOW FE ORAL) mouth. DULCOLAX, BISACODYL, Take by 0 Active ORAL mouth. acetaminophen 325 mg Take 2 30 tablet 1 01/19/2019 Active tabletIndications: tablets by Right lower quadrant mouth every 6 abdominal pain, (six) hours Pelvic mass as needed for Pain (scale 1-3) or Pain (scale 4-6). HYDROcodone-acetamin Take 1 tablet 15 tablet 0 01/19/2019 Active ophen 5-325 mg by mouth tabletIndications: every 6 (six) Right lower quadrant hours as abdominal pain, needed for Pelvic mass Pain (scale 4-6). ibuprofen 600 mg Take 1 tablet 30 tablet 1 01/19/2019 Active tabletIndications: by mouth Right lower quadrant every 6 (six) abdominal pain, hours as Pelvic mass needed for Pain (scale 1-3) or Pain (scale 4-6). estradiol (ESTRACE) Take 1 tablet 60 tablet 2 01/22/2019 Active 1 mg by mouth tabletIndications: daily. Pelvic mass rivaroxaban Take 1 tablet 30 tablet 0 01/22/2019 Active tabletIndications: by mouth Left arm swelling daily. aspirin (ASPIRIN LOW Take 81 mg by 0 Active DOSE) 81 mg EC mouth daily. tablet FUROSEMIDE (LASIX Take by 0 01/25/2019 Discontinued ORAL) mouth. aspirin E.C. Take 325 mg 0 01/25/2019 Discontinued (ECOTRIN) 325 mg EC by mouth tablet daily. Magnesium Take by 0 01/25/2019 Discontinued (MAGNACAPS) 100 mg mouth. Cap documented as of this encounter (statuses as of 01/25/2019) Active Problems Problem Noted Date Superficial venous thrombosis of arm, left 01/21/2019 Pelvic mass 01/18/2019 Obesity (BMI 30-39.9) 01/18/2019 Abdominal pain 01/17/2019 Leg pain, left 08/01/2015 documented as of this encounter (statuses as of 01/25/2019) Social History Tobacco Use Types Packs/Day Years [...] Sign Reading Time Taken Comments Blood Pressure 121/80 01/25/2019 11:23 AM CDT Pulse 96 01/25/2019 11:23 AM CDT Temperature 36.8 C (98.2 F) 01/25/2019 11:23 AM CDT Respiratory Rate 18 01/25/2019 11:23 AM CDT Oxygen Saturation - - Inhaled Oxygen Concentration - - Weight 78.4 kg (172 lb 12.8 oz) 01/25/2019 11:23 AM CDT Height 162.6 cm (5' 4") 01/25/2019 11:23 AM CDT Body Mass Index 29.66 01/25/2019 11:23 AM CDT documented in this encounter Plan of Treatment Date Type Specialty Care Team Description 01/25/2019 Office Visit Obstetrics & Gynecology Inga Valdes PA-C [address] [place] [address] [phone] 02/26/2019 Office Visit Obstetrics & Gynecology Nan Fuentes MD [address] [place] [address] [phone] Health Maintenance Due Date Last Done Comments DTaP,Tdap,and Td Vaccines (1 - 01/29/1988 Tdap) PAP SMEAR 1990 MAMMOGRAM 2009 INFLUENZA VACCINE (#1) 2019 04/25/2017 PNEUMOCOCCAL 0-64 YEARS COMBINED Aged Out No longer eligible based on SERIES patient's age to complete this topic documented as of this encounter Results Not on filedocumented in this encounter Visit Diagnoses Diagnosis ERRONEOUS ENCOUNTER--DISREGARD - Primary documented in this encounter Insurance Payer Benefit Plan / Subscriber ID Effective Phone Address Type Group Dates MEDICAID MEDICAID PENDING 2019-[address] [place] [address] documented as of this encounter
--- OUTSIDE RECORDS SUMMARY | 2019-05-23 14:56 | XMS REPORT | Summary of Care ---
:[address] [facility] - Health Address [address] [place] [address] Care Team Providers Name Role Phone Marti Morocho Primary Care Provider Reason for Visit Reason Comments Transition Of Care Encounter Details Date Type Department Care Team Description 01/23/[address] [facility] Ashlee Clarke, Transition Of Care Health Network- RN [address] [id number] Allergies Active Allergy Reactions Severity Noted Date [...] Visit Obstetrics & Gynecology Nan Fuentes MD [address] [place] [address] DR. Alberto LAUREL [address] [phone] Nurse, Cm Women's Health Health Maintenance Due [...] Address Type Group Dates MEDICAID MEDICAID PENDING 2019-[address] Pending PENDING [place] [address] documented as of this encounter
--- OUTSIDE RECORDS SUMMARY | 2019-05-23 14:56 | XMS REPORT | Summary of Care ---
:1970 Author Organization [facility] Address [address] [place] [address] Care Team Providers Name Role Phone Marti Morocho Primary Care Provider Reason for Visit Reason Comments Error See by PA Encounter Details Date Type Department Care Team Description 01/25/2019 Nurse Visit [facility]'s Fuentes, Nan Bailey MD [address] [place] [address] [address]. Darci [address] [place] [address] [facility] Healthcare- [place] Nurse, [facility] ENCOUNTER--DISREGARD [address] [place] [address], (Primary Dx) [address] [place] [address] Allergies Active Allergy Reactions Severity [...] Visit Obstetrics & Gynecology Inga Valdes PA-C [address] [address] Health Maintenance Due Date Last Done Comments [...] Address Type Group Dates MEDICAID MEDICAID PENDING 2019-[address] [place] [address] documented as of this encounter
--- OUTSIDE RECORDS SUMMARY | 2019-05-23 14:56 | XMS REPORT | Summary of Care ---
:1970 Author Organization [facility] Address [address] [place] [address] Care Team Providers Name Role Phone Marti Morocho Primary Care Provider Reason for Referral (STAT) Status Reason Specialty Diagnoses / Referred By Contact Referred To Procedures Contact New Request Procedures Shabnam Meraz UNILATERAL VENOUS DUPLEX UPPER BY [address] [place] [address] VASCULAR LAB [place], [place] UNILATERAL VENOUS [id number] DUPLEX UPPER BY VASCULAR LAB (STAT) Status Reason Specialty Diagnoses / Referred By Contact Referred To Procedures Contact New Request Procedures Shabnam Meraz UNILATERAL VENOUS DUPLEX UPPER BY [address] [facility] VASCULAR [place], [place] UNILATERAL VENOUS [id number] DUPLEX UPPER BY VASCULAR LAB Radiology Services (STAT) Status Reason Specialty Diagnoses / Referred By Referred To Procedures Contact Contact New Request Diagnostic Diagnoses Pelvic pain Surinder Allen, Radiology Procedures US PELVIS COMPLETE WITH MAY WHITESIDE [address] [address] Radiology Services (STAT) Status Reason Specialty Diagnoses / Referred By Referred To Procedures Contact Contact New Request Diagnostic Diagnoses Pelvic pain Surinder Allen, Radiology Procedures US PELVIS COMPLETE WITH MAY WHITESIDE [address] [address] Reason for Visit Reason Comments ULTRASOUND Auth/Cert Status Reason Specialty Diagnoses / Referred By Referred To Procedures Contact Contact Emergency Medicine Diagnoses abdominal pain [facility] Emergency Dept [address] [place] [address] Encounter Details Date Type Department Care Team Description 01/17/2019 - Hospital Encounter [facility] Labor and Surinder Allen MD [id number] [place] [address] Abdominal pain 01/21/2019 Delivery Unit Kera Alvarez MD [address] [place] [address] [address] [place], [place] [id number] Allergies Active Allergy Reactions Severity Noted Date Comments Penicillin Unknown - See comments 08/01/2015 documented as of this encounter (statuses as of 01/21/2019) Medications Medication Sig Dispensed Refills Start Date End Date Status FUROSEMIDE (LASIX Take by 0 Active ORAL) mouth. metoprolol Take by 0 Active chatman-hydrochlorothiaz mouth. (DUTOPROL) 50-12.5 mg Tb24 metformin ER Take 500 mg 0 Active (GLUCOPHAGE-XR) 500 by mouth mg 24 hr tablet daily with breakfast. SACCHAROMYCES Take by 0 Active BOULARDII mouth. (PROBIOTIC, S.BOULARDII, ORAL) NUTRITIONAL Take by 0 Active SUPPLEMENT/FIBER mouth. (FIBRE ORAL) aspirin E.C. Take 325 mg 0 Active (ECOTRIN) 325 mg EC by mouth tablet daily. Magnesium Take by 0 Active (MAGNACAPS) 100 mg mouth. Cap diazePAM 5 mg tablet TAKE 1 [...] tabletIndications: by mouth Left arm swelling daily. acetaminophen-codein Take 1 tablet 20 tablet 0 01/15/2019 01/19/2019 Discontinued e 300-30 mg by mouth tabletIndications: every 4 Hydrosalpinx (four) hours as needed for Pain (scale 7-10). norgestimate-ethinyl Take 1 tablet 4 Package 0 01/16/2019 01/19/2019 Discontinued estradiol 0.25-35 by mouth mg-mcg per daily. tabletIndications: Abdominal pain, right lower quadrant documented as of this encounter (statuses as of 01/21/2019) Active Problems Problem Noted Date Pelvic mass 01/18/2019 Obesity (BMI 30-39.9) 01/18/2019 Abdominal pain 01/17/2019 Leg pain, left 08/01/2015 documented as of this encounter (statuses as of 01/21/2019) Social History Tobacco Use Types Packs/Day Years [...] Sign Reading Time Taken Comments Blood Pressure 155/80 01/21/2019 9:00 AM CDT Pulse 113 01/21/2019 9:00 AM CDT Temperature 36.9 C (98.4 F) 01/21/2019 9:00 AM CDT Respiratory Rate 20 01/21/2019 9:00 AM CDT Oxygen Saturation 98% 01/21/2019 9:00 AM CDT Inhaled Oxygen Concentration - - Weight 77.1 kg (170 lb) 01/17/2019 3:22 PM CDT Height 160 cm (5' 3") 01/18/2019 1:56 PM CDT Body Mass Index 30.11 01/17/2019 3:22 PM CDT documented in this encounter Discharge Summaries Sahbnam Meraz MD - 01/21/2019 12:50 PM CDT 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 SUMMARY NOTE Date of Service: 01/21/2019 Admit Date: 01/17/2019 Discharge Date: 01/21/2019 Attending MD: Kera Alvarez MD Reffering MD: [facility] PCP: Marti Morocho Reason for Admission: Abdominal pain Final Diagnosis: Pelvic mass with adhesions SECONDARY DIAGNOSIS: LUE superficial venous thrombosis Principle Procedure: Procedure(s): EXPLORATORY LAPAROTOMY Lysis of adhesions Excision of pelvic mass Significant Lab/X-rays: .Upper extremity venous study Hospital Course: Length of stay: 3 Complications developed: Patient had hypertension requiring control with the assistance of the Internal Medicine team. Additionally, on POD #2, she developed a LUE superficial venous thrombosis. Cardiology was consulted and placed the patient on Xarelto. Condition: good Diet: diabetic Activity: no strenuous activity and no heavy lifting Discharge Medications: Current Discharge Medication List START taking these medications Details estradiol (ESTRACE) 1 mg Take 1 mg by mouth daily. Qty: 60 tablet, Refills: 2 Start date: 01/22/2019 Associated Diagnoses: Pelvic mass rivaroxaban (XARELTO) 10 mg Take 10 mg by mouth daily. Qty: 30 tablet, Refills: 0 Start date: 01/22/2019 Associated Diagnoses: Left arm swelling acetaminophen (TYLENOL) 650 mg Take 650 mg by mouth every 6 (six) hours as needed for Pain (scale 1-3) or Pain (scale 4-6). Qty: 30 tablet, Refills: 1 Start date: 01/19/2019 Associated Diagnoses: Right lower quadrant abdominal pain; Pelvic mass HYDROcodone-acetaminophen (NORCO 5) 1 tablet Take 1 tablet by mouth every 6 (six ) hours as needed for Pain (scale 4-6). Qty: 15 tablet, Refills: 0 Start date: 01/19/2019 Associated Diagnoses: Right lower quadrant abdominal pain; Pelvic mass ibuprofen (IBU) 600 mg Take 600 mg by mouth every 6 (six) hours as needed for Pain (scale 1-3) or Pain (scale 4-6). Qty: 30 tablet, Refills: 1 Start date: 01/19/2019 Associated Diagnoses: Right lower quadrant abdominal pain; Pelvic mass CONTINUE these medications which have NOT CHANGED Details amitriptyline (ELAVIL) 100 mg Take 100 mg by mouth at bedtime. diazePAM 5 mg tablet TAKE 1 TABLET BY MOUTH TWICE DAILY NEEDED. Refills: 0 DULCOLAX, BISACODYL, ORAL Take by mouth. ferrous sulfate (SLOW FE ORAL) Take by mouth. levothyroxine 150 mcg tablet TAKE 1 TABLET BY MOUTH ONCE DAILY Refills: 4 tiZANidine 4 mg tablet TAKE 1 TABLET BY MOUTH EVERY 6 HOURS NEEDED Refills: 2 verapamil 180 mg ER tablet TAKE 1 TABLET BY MOUTH ONCE DAILY Refills: 2 aspirin E.C. (ECOTRIN) 325 mg Take 325 mg by mouth daily. FUROSEMIDE (LASIX ORAL) Take by mouth. Magnesium (MAGNACAPS) 100 mg Cap Take by mouth. metformin ER (GLUCOPHAGE-XR) 500 mg Take 500 mg by mouth daily with breakfast. metoprolol chatman-hydrochlorothiaz (DUTOPROL) 50-12.5 mg Tb24 Take by mouth. NUTRITIONAL SUPPLEMENT/FIBER (FIBRE ORAL) Take by mouth. SACCHAROMYCES BOULARDII (PROBIOTIC, S.BOULARDII, ORAL) Take by mouth. STOP taking these medications norgestimate-ethinyl estradiol (SPRINTEC) 1 tablet Comments: Reason for Stopping: acetaminophen-codeine (TYLENOL #3) 1 tablet Comments: Reason for Stopping: Discharge: Home. Activity restrictions given. Follow-up Appointment: Return to Dr. Alvarez in 1 week and F/U Cardiology as instructed for re-evaluation of the left arm superficial thrombosis. Shabnam Meraz MD documented in this encounter Discharge Instructions InstructionsSobebetoTainaALFONSO - 01/21/2019Please take Ferrous Sulfate 325 mg by mouth 2 times a day and Vitamin C 500mg one time per day. AttachmentsThe following attachments cannot be sent through Care Everywhere.Rivaroxaban oral tablets (Mauritanian)Abdominal Incision, Discharge Instructions: Caring for Your (Mauritanian)documented in this encounter Progress Notes Shabnam Meraz MD - 01/21/2019 12:07 PM CDT DAILY PROGRESS NOTE Hospital Day: 5 Subjective: Patient is a 48 year old female POD #3 s/p Exploratory laparotomy, ALVARO, excision of pelvic mass. Shehad a bowel movement last PM and is tolerating regular diet. She is also ambulating without difficulty. Patient continues to have pain from her left arm where her IV had been and is using a warm pack. Objective: Vital Signs: Patient Vitals for the past 24 hrs: BP Pulse Resp Temp Temp src SpO2 01/21/19 0900 (!) 155/80 113 20 36.9 C (98.4 F) Axillary 98 % 01/21/19 0558 (!) 147/71 112 18 37.1 C (98.7 F) Oral 01/21/19 0130 126/76 112 18 37 C (98.6 F) Axillary 96 % 01/20/19 2239 37.6 C (99.6 F) 01/20/19 1921 (!) 140/89 120 18 37.4 C (99.3 F) Axillary 99 % 01/20/19 1630 37.9 C (100.2 F) Axillary 01/20/19 1500 102 37.2 C (99 F) TEMPORAL ART 98 % Physical Exam General: No apparent distress Heart:regular rhythm with tachycardia this AM, no murmurs, gallops or rubs Lungs:normal Abdomen:abdomen soft, non-tender, nondistended, normal active bowel sounds, no masses or organomegaly Incision/Wound:clean, dry, without erythema or exudate Extremeties/Musculoskeletal:normal, with out edema. Neg Saeid's sign. Erythema at left arm IV site, warm, tender. Labs: CBC BMP PT/INR WBC (10*3/L) Date Value 01/21/2019 7.64 NA (mmol/L) Date Value 01/21/2019 141 No results found for: PT RBC (10*6/L) Date Value 01/21/2019 2.85 (L) K (mmol/L) Date Value 01/21/2019 3.8 INR (no units) Date Value 01/21/2019 1.4 PLT (10*3/L) Date Value 01/21/2019 186 CALCIUM (mg/dL) Date Value 01/21/2019 8.3 (L) HGB (g/dL) Date Value 01/21/2019 8.7 (L) CL (mmol/L) Date Value 01/21/2019 110 (H) aPTT HCT (%) Date Value 01/21/2019 27.4 (L) BUN (mg/dL) Date Value 01/21/2019 13 APTT Patient (Seconds) Date Value 01/21/2019 40 (H) CREATININE (mg/dL) Date Value 01/21/2019 0.78 Medications: Current Facility-Administered Medications Medication Dose Route Frequency Last Rate Last Dose metoprolol tartrate (LOPRESSOR) tablet 25 mg 25 mg Oral BID estradiol (ESTRACE) tablet 1 mg 1 mg Oral DAILY 1 mg at 01/21/19851 rivaroxaban (XARELTO) tablet 10 mg 10 mg Oral DAILY 10 mg at 01/21/19851 acetaminophen (TYLENOL) tablet 650 mg 650 mg Oral Q6H ABX 650 mg at 01/21 08 alum-mag hydroxide-simeth (MAALOX PLUS / MAG-AL PLUS) 200-200-20 mg/5 mL suspension 30 mL 30 mLOral Q6HPRN D5W-LR IV infusion 1,000 mL 1,000 mL IV Infusion CONTINUOUS 75 mL/hr at 11/01 1,000 mL at 01/19/191899 D5W-LR IV infusion 1,000 mL 1,000 mL IV Infusion CONTINUOUS 100 mL/hr at 1906 1,000 mLat 01/19/191906 HYDROcodone-acetaminophen (NORCO 5) 5-325 mg tablet 1 tablet 1 tablet Oral Q6HPRN HYDROcodone-acetaminophen (NORCO) 10-325 mg tablet 1 tablet 1 tablet Oral Q6HPRN 1 tablet at 01/20/19 0349 ibuprofen (IBU) tablet 600 mg 600 mg Oral Q6H ABX 600 mg at 01/21/19 0852 morpHINE 30 mg/30 mL (fixed dose) ROCK WOOL APPLICATOR injection Intravenous CONTINUOUS zolpidem (AMBIEN) tablet 5 mg 5 mg Oral QHSPRN 5 mg at 01/20/19 2255 hydralAZINE (APRESOLINE) injection 10 mg 10 mg Slow IV Push Q6HPRN 10 mg at 01/18/19 1302 lactated ringers IV infusion 1,000 mL 1,000 mL IV Infusion CONTINUOUS 20 mL /hr at 01/18/19 1409 metoprolol (LOPRESSOR) injection 5 mg 5 mg Slow IV Push Q8HPRN morpHINE 2 mg/mL LOAD & RESCUE INJECTION SYRG Slow IV Push SEE- INSTRUCTIONS naloxone (NARCAN) injection 0.1 mg 0.1 mg Slow IV Push SEE-INSTRUCTIONS sennosides (SENOKOT) tablet 8.6 mg 8.6 mg Oral DAILY 8.6 mg at 01/21/19 0852 amitriptyline (ELAVIL) tablet 100 mg 100 mg Oral QHS 100 mg at 01/20/19 2254 diazePAM (VALIUM) tablet 5 mg 5 mg Oral BIDPRN 5 mg at 01/17/192034 docusate (COLACE) capsule 100 mg 100 mg Oral DAILY 100 mg at 01/21/19 0852 levothyroxine (SYNTHROID) tablet 150 mcg 150 mcg Oral QAM-0600 150 mcg at 01/21/19 0555 ondansetron (ZOFRAN (PF)) injection 4 mg 4 mg Slow IV Push Q6HPRN 4 mg at 01/19/19 1925 Assessment/Plan: Deena Aguirre is a 48 year old female s/p Ex-lap, ALVARO, excision of pelvic mass. She has met all postoperative markers and is ready for discharge. Post op instructions/restrictions/follow up given. Additionally, her post operative course has been complicated with a left superficial thrombosis in the antecubital area. She will continue with Xarelto as per Cardiology and will follow up with them as arranged. Shabnam Meraz MD aArturo march MD - 01/21/2019 9:49 AM CDT [facility] Medicine Progress Note Name: Deena Aguirre : 1970 Admit Date: 01/17/2019 PCP on file: Marti Morocho ASSESSMENT: Deena Aguirre is a 48 year old female with h/o HTN, CHF, DM2, hypothyroidism, and recently found right ovarian cyst vs hydrosalpinx, who presented with uncontrolled right pelvic pain. 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 Tachycardia. BB dose increased - hydralazine prn # h/o DM2 - resolved after gastric bypass. Not on medication at home # Hypothyroidism - continue home levothyroxine # LUE superficial venous thrombosis - warm compression - low dose Xarelto for 3-4 wk per cardiology Dispo: home VTE Prophylaxis: ambulation Code Status: fc Case has been discussed with anesthesiology, RN, patient, and her family. Previous notes reviewed. All patient/family questions and concerns answered and current plan of care discussed in detail. Electronically signed by: Arturo Gonzales MD 01/21/2019 at 9:49am SUBJECTIVE/ 24-HOUR HOSPITAL EVENTS: 01/18: still c/o severe right pelvic pain 01/23. 01/20: Doing well. Tolerated diet. Pain controlled. 01/21: left antecubital swelling, warmness, and pain. Afebrile. Abd pain improved. OBJECTIVE: Vital signs range: Temp: [36.9 C (98.4 F)-37.9 C (100.2 F)] 36.9 C (98.4 F) Pulse: [101-120] 113 Resp: [18-20] 20 BP: (122-155)/(71-89) 155/80 Most recent vital signs: BP (!) 155/80 (BP Location: Right arm, Patient Position: Supine) | Pulse 113 | Temp 36.9 C (98.4F) (Axillary) | Resp 20 | Ht 1.6 m (5' 3") | Wt 77.1 kg (170 lb) | SpO2 98% | BMI 30.11 kg/m I/O: I/O last 3 completed shifts: In: - Out: 300 [Urine:200; Emesis:100] PHYSICAL EXAM: Constitutional: Well-developed, well-nourished, and in no distress. Appears stated age. HENT: Normocephalic and atraumatic. Normal hearing. No ear discharge. Oropharynx is clear and moist. Eyes: Conjunctivae and EOM are normal. PERRL. No scleral icterus. Neck: Normal range of motion. Neck supple. No JVD. No tracheal deviation. No thyromegaly. Cardiovascular: S1S2 with normal rate and rhythm. No murmur, rub or gallop. Normal distal pulses Pulmonary/Chest: No respiratory distress. Clear to auscultation bilaterally. No wheezes, rales, rhonchi. No tenderness. Abdominal: Soft. No distension. Tenderness to incision. No rebound and no guarding. Bowel sounds arenormal. Musculoskeletal: Normal range of motion. No edema, tenderness or deformity. Lymphadenopathy: No adenopathy Neurological: Alert and oriented to person, place, and time. Normal sensation and normal strength. No tremor. Gait normal. Skin: swelling, warmness, tender to touch to left antecubital and distal upper arm Psychiatric: Mood, affect and judgment normal. LABS: I reviewed all the relevant patient's new lab test results Recent Results (from the past 24 hour(s)) D-DIMER Collection Time: 01/21/19 1:18 AM Result Value Ref Range D-DIMER 1.42 (H) <0.41 g/mL (FEU) aPTT Collection Time: 01/21/19 1:18 AM Result Value Ref Range APTT Patient 40 (H) 23 - 38 Seconds PROTHROMBIN TIME / INR Collection Time: 09/08/19 1:18 AM Result Value Ref Range PROTIME PATIENT 16.0 (H) 12.0 - 14.7 Seconds INR 1.4 COMP. METABOLIC PANEL (49780) Collection Time: 01/21/19 1:19 AM Result Value Ref Range NA 141 135 - 145 mmol/L K 3.8 3.5 - 5.0 mmol/L CL 110 (H) 98 - 108 mmol/L CO2 TOTAL 23 23 - 31 mmol/L AGAP 8 2 - 16 BUN 13 7 - 23 mg/dL GLUCOSE 111 (H) 70 - 110 mg/dL CREATININE 0.78 0.50 - 1.04 mg/dL TOTAL BILI 0.3 0.1 - 1.1 mg/dL CALCIUM 8.3 (L) 8.6 - 10.6 mg/dL T PROTEIN 5.7 (L) 6.3 - 8.2 g/dL ALBUMIN 2.9 (L) 3.5 - 5.0 g/dL ALK PHOS 83 34 - 122 U/L ALT(SGPT) 23 9 - 51 U/L AST(SGOT) 26 13 - 40 U/L eGFR Calculation (Non-) 78.5 mL/min/1.73m2 eGFR Calculation () 95.1 mL/min/1.73m2 MAGNESIUM Collection Time: 01/21/19 1:19 AM Result Value Ref Range MAGNESIUM 1.7 1.7 - 2.4 mg/dL CBC WITH DIFFERENTIAL Collection Time: 01/21/19 1:19 AM Result Value Ref Range WBC 7.64 4.30 - 11.10 10*3/L RBC 2.85 (L) 3.93 - 5.25 10*6/L HGB 8.7 (L) 11.6 - 15.0 g/dL HCT 27.4 (L) 35.7 - 45.2 % MCV 96.1 (H) 80.6 - 95.5 fL MCH 30.5 25.9 - 32.8 pg MCHC 31.8 31.6 - 35.1 g/dL RDW-SD 48.3 39.0 - 49.9 fL RDW-CV 13.7 12.0 - 15.5 % PLT 186 166 - 358 10*3/L MPV 10.1 9.5 - 12.9 fL NRBC/100 WBC 0.0 0.0 - 10.0 /100 WBCs NRBC x10^3 <0.01 10*3/L GRAN MAT (NEUT) % 82.9 % IMM GRAN % 0.50 % LYMPH % 10.1 % MONO % 5.4 % EOS % 0.7 % BASO % 0.4 % GRAN MAT x10^3(ANC) 6.34 1.88 - 7.09 10*3/uL IMM GRAN x10^3 0.04 0.00 - 0.06 10*3/uL LYMPH x10^3 0.77 (L) 1.32 - 3.29 10*3/uL MONO x10^3 0.41 0.33 - 0.92 10*3/uL EOS x10^3 0.05 0.03 - 0.39 10*3/uL BASO x10^3 0.03 0.01 - 0.07 10*3/uL IMAGING: I reviewed all the relevant patient's new radiology test results Hospital Encounter on 01/17/19 US PELVIS COMPLETE WITH TRANSVAGINAL Narrative * * * * * * * * ORIGINAL REPORT * * * * * * * * EXAM: PELVIC ULTRASOUND, TRANSABDOMINAL AND TRANSVAGINAL HISTORY: pelvic pain COMPARISON: Pelvic ultrasound dated 01/15/2019. FINDINGS: UTERUS: Surgical absence of the uterus. OVARIES: Surgical absent of the left ovary. An approximately 2.8 x 7.1 x 3.8 cm tubular anechoic structure is seen in the right lower quadrant with minimal peripheral flow on color Doppler. The right ovary is not clearly visualized. No free fluid. Impression 1. Unchanged 7.1 cm right lower quadrant tubular anechoic structure with peripheral weak vascularity, may represent a large ovarian cyst or hydrosalpinx. Ovarian torsion cannot be excluded. The right ovary is not fully identified. 2. Status post hysterectomy and left oophorectomy. I, Rosemarie Pruitt MD., have reviewed this study and agree with the above report. MEDICATIONS: I reviewed the current inpatient medications ordered Current Facility-Administered Medications Medication Dose Route Frequency Last Rate Last Dose estradiol (ESTRACE) tablet 1 mg 1 mg Oral DAILY 1 mg at 01/21/19 0852 rivaroxaban (XARELTO) tablet 10 mg 10 mg Oral DAILY 10 mg at 01/21/19 0852 acetaminophen (TYLENOL) tablet 650 mg 650 mg Oral Q6H ABX 650 mg at 01/21 0852 alum-mag hydroxide-simeth (MAALOX PLUS / MAG-AL PLUS) 200-200-20 mg/5 mL suspension 30 mL 30 mLOral Q6HPRN D5W-LR IV infusion 1,000 mL 1,000 mL IV Infusion CONTINUOUS 75 mL/hr at 11/01 1900 1,000 mL at 01/19/19 1900 D5W-LR IV infusion 1,000 mL 1,000 mL IV Infusion CONTINUOUS 100 mL/hr at 1907 1,000 mLat 01/19/19 190 HYDROcodone-acetaminophen (NORCO 5) 5-325 mg tablet 1 tablet 1 tablet Oral Q6HPRN HYDROcodone-acetaminophen (NORCO) 10-325 mg tablet 1 tablet 1 tablet Oral Q6HPRN 1 tablet at 01/20/19 0349 ibuprofen (IBU) tablet 600 mg 600 mg Oral Q6H ABX 600 mg at 01/21/19 08 metoprolol tartrate (LOPRESSOR) tablet 12.5 mg 12.5 mg Oral BID 12.5 mg at 01/21/1952 morpHINE 30 mg/30 mL (fixed dose) ROCK WOOL APPLICATOR injection Intravenous CONTINUOUS zolpidem (AMBIEN) tablet 5 mg 5 mg Oral QHSPRN 5 mg at 01/20/19 225 hydralAZINE (APRESOLINE) injection 10 mg 10 mg Slow IV Push Q6HPRN 10 mg at 01/18/19 1302 lactated ringers IV infusion 1,000 mL 1,000 mL IV Infusion CONTINUOUS 20 mL /hr at 01/18/19 1409 metoprolol (LOPRESSOR) injection 5 mg 5 mg Slow IV Push Q8HPRN morpHINE 2 mg/mL LOAD & RESCUE INJECTION SYRG Slow IV Push SEE- INSTRUCTIONS naloxone (NARCAN) injection 0.1 mg 0.1 mg Slow IV Push SEE-INSTRUCTIONS sennosides (SENOKOT) tablet 8.6 mg 8.6 mg Oral DAILY 8.6 mg at 01/21/19851 amitriptyline (ELAVIL) tablet 100 mg 100 mg Oral QHS 100 mg at 01/20/19 225 diazePAM (VALIUM) tablet 5 mg 5 mg Oral BIDPRN 5 mg at 01/17/192034 docusate (COLACE) capsule 100 mg 100 mg Oral DAILY 100 mg at 01/21/19 0852 levothyroxine (SYNTHROID) tablet 150 mcg 150 mcg Oral QAM-0600 150 mcg at 01/21/19 0555 ondansetron (ZOFRAN (PF)) injection 4 mg 4 mg Slow IV Push Q6HPRN 4 mg at 01/19/195 TShabnam Meraz MD - 01/20/2019 10:03 PM CDT POST-OP PROGRESS NOTE Date of Service: 01/20/2019 Post-Op Day # 2 Days Post-Op Subjective: Patient is a 48 year old female s/p exploratory laparotomy, lysis of adhesions, excision of pelvic mass. She now has a one day history of pain/swelling at the previous left antecubital IV site. Objective: Vital Signs: Patient Vitals for the past 24 hrs: BP Pulse Resp Temp Temp src SpO2 01/20/19 1630 37.9 C (100.2 F) Axillary 01/20/19 1500 102 37.2 C (99 F) TEMPORAL ART 98 % 01/20/19 1200 122/76 101 37.4 C (99.4 F) TEMPORAL ART 98 % 01/20/19 0900 110 38.2 C (100.8 F) Oral 01/20/19 0350 (!) 140/85 98 18 36.7 C (98.1 F) Skin 100 % 01/20/19 0015 115/64 103 16 36.8 C (98.3 F) Skin 94 % Physical Exam Extremity: L antecubital area with increasing erythema, firm, significantly tender to palpation Unilateral venous duplex upper extremity study: Left superficial cephalic thrombosis at the antecubital Assessment/Plan: Deena Aguirre is a 48 year old female POD #2 s/p Ex-lap, LAVARO, excision of pelvic mass. Her post operative course is complicated by a new onset left superficial cephalic thrombosis at the antecubital. Plan: Discussed with Dr. Almodovar, Internal Medicine. He has consulted Dr. Hand of the Cardiovascular team. They will evaluate and further disposition patient in the AM. At this point, we will continue heat/cold applications and LE elevation. I have discussed the situation with the patient and her family who expressed an understanding. Shabnam Meraz MD Obstetrics and GynecologyElectronically signed by Shabnam Meraz MD at 2018 10:27 PM CDTViShabnam hernandez MD - 01/20/2019 7:08 PM CDT POST-OP PROGRESS NOTE Date of Service: 01/20/2019 Post-Op Day # 2 Days Post-Op Subjective: Patient is a 48 year old female with complaints of increasing left arm pain at the previous IV site.She feels hot like a fever. She is now tolerating her diet and passing flatus. S/P: Procedure(s): Exploratory laparotomy, excision of pelvic mass, lysis of adhesions. Objective: Vital Signs: Patient Vitals for the past 24 hrs: BP Pulse Resp Temp Temp src SpO2 01/20/19 1630 37.9 C (100.2 F) Axillary 01/20/19 1500 102 37.2 C (99 F) TEMPORAL ART 98 % 01/20/19 1200 122/76 101 37.4 C (99.4 F) TEMPORAL ART 98 % 01/20/19 0900 110 38.2 C (100.8 F) Oral 01/20/19 0350 (!) 140/85 98 18 36.7 C (98.1 F) Skin 100 % 01/20/19 0015 115/64 103 16 36.8 C (98.3 F) Skin 94 % 01/19/19 2000 128/71 104 18 36.9 C (98.4 F) TEMPORAL ART 100 % Intake & Output: Date 01/20/19 07 - 01/21/19 0659 Shift 8815-6668 7807-4237 9355-5021 24 Hour Total INTAKE Shift Total OUTPUT Urine(mL/kg/hr) 200(0.3) 200 Emesis 0 0 Shift Total 200 200 Weight (kg) 77.1 77.1 77.1 77.1 * No blood loss amount entered * Physical Exam General: No acute distress Heart: RRR without murmur Lungs: Clear, good effort Abdomen: soft, non-distended, appropriately tender, bandage in place Extremity: L antecubital area with increasing erythema, firm, significantly tender to palpation Labs: CBC BMP WBC (10*3/L) Date Value 01/20/2019 6.73 NA (mmol/L) Date Value 01/19/2019 138 RBC (10*6/L) Date Value 01/20/2019 3.05 (L) K (mmol/L) Date Value 01/19/2019 4.1 PLT (10*3/L) Date Value 01/20/2019 225 CALCIUM (mg/dL) Date Value 01/19/2019 8.8 HGB (g/dL) Date Value 01/20/2019 9.2 (L) CL (mmol/L) Date Value 01/19/2019 106 HCT (%) Date Value 01/20/2019 30.0 (L) BUN (mg/dL) Date Value 01/19/2019 16 CREATININE (mg/dL) Date Value 01/19/2019 1.01 Medications: Current Facility-Administered Medications Medication Dose Route Frequency Last Rate Last Dose estradiol (ESTRACE) tablet 1 mg 1 mg Oral DAILY 1 mg at 01/20/19 1002 acetaminophen (TYLENOL) tablet 650 mg 650 mg Oral Q6H ABX 650 mg at 01/20 1850 alum-mag hydroxide-simeth (MAALOX PLUS / MAG-AL PLUS) 200-200-20 mg/5 mL suspension 30 mL 30 mLOral Q6HPRN D5W-LR IV infusion 1,000 mL 1,000 mL IV Infusion CONTINUOUS 75 mL/hr at 11/01 1900 1,000 mL at 01/19/19 1900 D5W-LR IV infusion 1,000 mL 1,000 mL IV Infusion CONTINUOUS 100 mL/hr at 1907 1,000 mLat 01/19/19 1907 HYDROcodone-acetaminophen (NORCO 5) 5-325 mg tablet 1 tablet 1 tablet Oral Q6HPRN HYDROcodone-acetaminophen (NORCO) 10-325 mg tablet 1 tablet 1 tablet Oral Q6HPRN 1 tablet at 01/20/19 0349 ibuprofen (IBU) tablet 600 mg 600 mg Oral Q6H ABX 600 mg at 01/20/19 1507 metoprolol tartrate (LOPRESSOR) tablet 12.5 mg 12.5 mg Oral BID 12.5 mg at 01/20/19 0933 morpHINE 30 mg/30 mL (fixed dose) ROCK WOOL APPLICATOR injection Intravenous CONTINUOUS zolpidem (AMBIEN) tablet 5 mg 5 mg Oral QHSPRN 5 mg at 01/19/191 hydralAZINE (APRESOLINE) injection 10 mg 10 mg Slow IV Push Q6HPRN 10 mg at 01/18/19 1302 lactated ringers IV infusion 1,000 mL 1,000 mL IV Infusion CONTINUOUS 20 mL /hr at 01/18/19 1409 metoprolol (LOPRESSOR) injection 5 mg 5 mg Slow IV Push Q8HPRN morpHINE 2 mg/mL LOAD & RESCUE INJECTION SYRG Slow IV Push SEE- INSTRUCTIONS naloxone (NARCAN) injection 0.1 mg 0.1 mg Slow IV Push SEE-INSTRUCTIONS scopolamine transdermal (TRANSDERM-SCOP) patch 1.5 mg 1.5 mg Topical ONCE 1.5 mg at 01/18/19 0947 sennosides (SENOKOT) tablet 8.6 mg 8.6 mg Oral DAILY 8.6 mg at 01/20/19 0933 amitriptyline (ELAVIL) tablet 100 mg 100 mg Oral QHS 100 mg at 01/19/192110 diazePAM (VALIUM) tablet 5 mg 5 mg Oral BIDPRN 5 mg at 01/17/192034 docusate (COLACE) capsule 100 mg 100 mg Oral DAILY 100 mg at 01/20/19 0932 levothyroxine (SYNTHROID) tablet 150 mcg 150 mcg Oral QAM-0600 150 mcg at 01/20/19 0649 ondansetron (ZOFRAN (PF)) injection 4 mg 4 mg Slow IV Push Q6HPRN 4 mg at 01/19/19 1925 Assessment/Plan: Deena Aguirre is a 48 year old female POD #2 s/p Ex- Lap, ALVARO, excision of pelvic mass. Note increasing erythema/tenderness over L antecubital IV site with intermittent low grade temps. Concerns for venous thrombosis. Will obtain an upper extremity venous doppler study. Will not discharge tonight. Shabnam Meraz MD TArturo Gonzales MD - 01/20/2019 11:15 AM CDT Hospital Medicine Progress Note Name: Deena Aguirre : 1970 Admit Date: 01/17/2019 PCP on file: Marti Morocho ASSESSMENT: Deena Aguirre is a 48 year old female with h/o HTN, CHF, DM2, hypothyroidism, and recently found right ovarian cyst vs hydrosalpinx, who presented with uncontrolled right pelvic pain. 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 Not on medication at home # Hypothyroidism - continue home levothyroxine Dispo: home VTE Prophylaxis: ambulation Code Status: fc Case has been discussed with anesthesiology, RN, patient, and her family. Previous notes reviewed. All patient/family questions and concerns answered and current plan of care discussed in detail. Electronically signed by: Arturo Gonzales MD 01/20/2019 at 11: 15am SUBJECTIVE/ 24-HOUR HOSPITAL EVENTS: 01/18: still c/o severe right pelvic pain 01/23. 01/20: Doing well. Tolerated diet. Pain controlled. OBJECTIVE: Vital signs range: Temp: [36.6 C (97.8 F)-38.2 C (100.8 F)] 38.2 C (100.8 F) Pulse: [84-110] 110 Resp: [16-18] 18 BP: (107-140)/(64-85) 140/85 Most recent vital signs: BP (!) 140/85 (BP Location: Right arm, Patient Position: Sitting) | Pulse 110 | Temp 38.2 C (100.8 F) (Oral) | Resp 18 | Ht 1.6 m (5' 3") | Wt 77.1 kg (170 lb) | SpO2 100% | BMI 30.11 kg/m I/O: I/O last 3 completed shifts: In: 28.7 [I.V.:28.7] Out: 1250 [Urine:1150; Emesis:100] PHYSICAL EXAM: Constitutional: Well-developed, well-nourished, and in no distress. Appears stated age. HENT: Normocephalic and atraumatic. Normal hearing. No ear discharge. Oropharynx is clear and moist. Eyes: Conjunctivae and EOM are normal. PERRL. No scleral icterus. Neck: Normal range of motion. Neck supple. No JVD. No tracheal deviation. No thyromegaly. Cardiovascular: S1S2 with normal rate and rhythm. No murmur, rub or gallop. Normal distal pulses Pulmonary/Chest: No respiratory distress. Clear to auscultation bilaterally. No wheezes, rales, rhonchi. No tenderness. Abdominal: Soft. No distension. Tenderness to incision. No rebound and no guarding. Bowel sounds arenormal. Musculoskeletal: Normal range of motion. No edema, tenderness or deformity. Lymphadenopathy: No adenopathy Neurological: Alert and oriented to person, place, and time. Normal sensation and normal strength. No tremor. Gait normal. Skin: Skin is warm, dry and intact. No rash noted. No cyanosis or erythema. Nails show no clubbing. Psychiatric: Mood, affect and judgment normal. LABS: I reviewed all the relevant patient's new lab test results Recent Results (from the past 24 hour(s)) ESTRADIOL, LEVEL Collection Time: 01/19/19 5:37 PM Result Value Ref Range E2 34 pg/mL CBC WITH DIFFERENTIAL Collection Time: 01/20/19 4:18 AM Result Value Ref Range WBC 6.73 4.30 - 11.10 10*3/L RBC 3.05 (L) 3.93 - 5.25 10*6/L HGB 9.2 (L) 11.6 - 15.0 g/dL HCT 30.0 (L) 35.7 - 45.2 % MCV 98.4 (H) 80.6 - 95.5 fL MCH 30.2 25.9 - 32.8 pg MCHC 30.7 (L) 31.6 - 35.1 g/dL RDW-SD 49.0 39.0 - 49.9 fL RDW-CV 13.6 12.0 - 15.5 % PLT 225 166 - 358 10*3/L MPV 9.9 9.5 - 12.9 fL NRBC/100 WBC 0.0 0.0 - 10.0 /100 WBCs NRBC x10^3 <0.01 10*3/L GRAN MAT (NEUT) % 72.1 % IMM GRAN % 0.30 % LYMPH % 24.7 % MONO % 1.3 % EOS % 1.2 % BASO % 0.4 % GRAN MAT x10^3(ANC) 4.85 1.88 - 7.09 10*3/uL IMM GRAN x10^3 <0.03 0.00 - 0.06 10*3/uL LYMPH x10^3 1.66 1.32 - 3.29 10*3/uL MONO x10^3 0.09 (L) 0.33 - 0.92 10*3/uL EOS x10^3 0.08 0.03 - 0.39 10*3/uL BASO x10^3 0.03 0.01 - 0.07 10*3/uL IMAGING: I reviewed all the relevant patient's new radiology test results Hospital Encounter on 01/17/19 US PELVIS COMPLETE WITH TRANSVAGINAL Narrative * * * * * * * * ORIGINAL REPORT * * * * * * * * EXAM: PELVIC ULTRASOUND, TRANSABDOMINAL AND TRANSVAGINAL HISTORY: pelvic pain COMPARISON: Pelvic ultrasound dated 01/15/2019. FINDINGS: UTERUS: Surgical absence of the uterus. OVARIES: Surgical absent of the left ovary. An approximately 2.8 x 7.1 x 3.8 cm tubular anechoic structure is seen in the right lower quadrant with minimal peripheral flow on color Doppler. The right ovary is not clearly visualized. No free fluid. Impression 1. Unchanged 7.1 cm right lower quadrant tubular anechoic structure with peripheral weak vascularity, may represent a large ovarian cyst or hydrosalpinx. Ovarian torsion cannot be excluded. The right ovary is not fully identified. 2. Status post hysterectomy and left oophorectomy. I, Rosemarie Pruitt MD., have reviewed this study and agree with the above report. MEDICATIONS: I reviewed the current inpatient medications ordered Current Facility-Administered Medications Medication Dose Route Frequency Last Rate Last Dose estradiol (ESTRACE) tablet 1 mg 1 mg Oral DAILY 1 mg at 01/20/19 1002 acetaminophen (TYLENOL) tablet 650 mg 650 mg Oral Q6H ABX 650 mg at 01/20 0649 alum-mag hydroxide-simeth (MAALOX PLUS / MAG-AL PLUS) 200-200-20 mg/5 mL suspension 30 mL 30 mLOral Q6HPRN D5W-LR IV infusion 1,000 mL 1,000 mL IV Infusion CONTINUOUS 75 mL/hr at 11/01 1900 1,000 mL at 01/19/19 1900 D5W-LR IV infusion 1,000 mL 1,000 mL IV Infusion CONTINUOUS 100 mL/hr at 1907 1,000 mLat 01/19/19 190 HYDROcodone-acetaminophen (NORCO 5) 5-325 mg tablet 1 tablet 1 tablet Oral Q6HPRN HYDROcodone-acetaminophen (NORCO) 10-325 mg tablet 1 tablet 1 tablet Oral Q6HPRN 1 tablet at 01/20/19 0349 ibuprofen (IBU) tablet 600 mg 600 mg Oral Q6H ABX 600 mg at 01/20/19 0933 metoprolol tartrate (LOPRESSOR) tablet 12.5 mg 12.5 mg Oral BID 12.5 mg at 01/20/19 0933 morpHINE 30 mg/30 mL (fixed dose) ROCK WOOL APPLICATOR injection Intravenous CONTINUOUS zolpidem (AMBIEN) tablet 5 mg 5 mg Oral QHSPRN 5 mg at 01/19/192110 hydralAZINE (APRESOLINE) injection 10 mg 10 mg Slow IV Push Q6HPRN 10 mg at 01/18/19 1302 lactated ringers IV infusion 1,000 mL 1,000 mL IV Infusion CONTINUOUS 20 mL /hr at 01/18/19 1409 metoprolol (LOPRESSOR) injection 5 mg 5 mg Slow IV Push Q8HPRN morpHINE 2 mg/mL LOAD & RESCUE INJECTION SYRG Slow IV Push SEE- INSTRUCTIONS naloxone (NARCAN) injection 0.1 mg 0.1 mg Slow IV Push SEE-INSTRUCTIONS scopolamine transdermal (TRANSDERM-SCOP) patch 1.5 mg 1.5 mg Topical ONCE 1.5 mg at 01/18/19 0947 sennosides (SENOKOT) tablet 8.6 mg 8.6 mg Oral DAILY 8.6 mg at 01/20/1933 amitriptyline (ELAVIL) tablet 100 mg 100 mg Oral QHS 100 mg at 01/19/192110 diazePAM (VALIUM) tablet 5 mg 5 mg Oral BIDPRN 5 mg at 01/17/192034 docusate (COLACE) capsule 100 mg 100 mg Oral DAILY 100 mg at 01/20/1932 levothyroxine (SYNTHROID) tablet 150 mcg 150 mcg Oral QAM-0600 150 mcg at 01/20/19 0649 ondansetron (ZOFRAN (PF)) injection 4 mg 4 mg Slow IV Push Q6HPRN 4 mg at 01/19/195 TShabnam Meraz MD - 01/20/2019 10:42 AM CDT POST-OP PROGRESS NOTE Date of Service: 01/20/2019 Post-Op Day # 2 Days Post-Op Subjective: Patient is a 48 year old female POD #2 S/P: Procedure(s): Exploratory laparotomy, lysis of adhesions, excision of pelvic mass. Patient is ambulating without difficulty and experiencing no nausea /vomiting this AM. She has not passed flatus. Patient is tolerating a regular diet, which she consumes slowly due to her previous gastric surgery. She is voiding without difficulty. Objective: Vital Signs: Patient Vitals for the past 24 hrs: BP Pulse Resp Temp Temp src SpO2 01/20/19 0900 110 38.2 C (100.8 F) Oral 01/20/19 0350 (!) 140/85 98 18 36.7 C (98.1 F) Skin 100 % 01/20/19 0015 115/64 103 16 36.8 C (98.3 F) Skin 94 % 01/19/19 2000 128/71 104 18 36.9 C (98.4 F) TEMPORAL ART 100 % 01/19/19 1800 129/75 90 18 37 C (98.6 F) Oral 01/19/19 1300 107/64 84 18 36.6 C (97.8 F) Axillary Intake & Output: Output: 750 cc/24 hr Physical Exam General: No apparent distress Heart: regular rhythm with tachycardia this AM, no murmurs, gallops or rubs Lungs: normal Incision/Wound: clean, dry, bandage in place Abdomen: abdomen soft, non-tender, nondistended, normal active bowel sounds, no masses or organomegaly Extremeties/Musculoskeletal: normal, with out edema. Neg Saeid's sign. There is slight erythema at left arm IV site. Warm pack in place Labs: CBC BMP WBC (10*3/L) Date Value 01/20/2019 6.73 NA (mmol/L) Date Value 01/19/2019 138 RBC (10*6/L) Date Value 01/20/2019 3.05 (L) K (mmol/L) Date Value 01/19/2019 4.1 PLT (10*3/L) Date Value 01/20/2019 225 CALCIUM (mg/dL) Date Value 01/19/2019 8.8 HGB (g/dL) Date Value 01/20/2019 9.2 (L) CL (mmol/L) Date Value 01/19/2019 106 HCT (%) Date Value 01/20/2019 30.0 (L) BUN (mg/dL) Date Value 01/19/2019 16 CREATININE (mg/dL) Date Value 01/19/2019 1.01 Medications: Current Facility-Administered Medications Medication Dose Route Frequency Last Rate Last Dose estradiol (ESTRACE) tablet 1 mg 1 mg Oral DAILY 1 mg at 01/20/19 1002 acetaminophen (TYLENOL) tablet 650 mg 650 mg Oral Q6H ABX 650 mg at 01/20 0649 alum-mag hydroxide-simeth (MAALOX PLUS / MAG-AL PLUS) 200-200-20 mg/5 mL suspension 30 mL 30 mLOral Q6HPRN D5W-LR IV infusion 1,000 mL 1,000 mL IV Infusion CONTINUOUS 75 mL/hr at 11/01 1900 1,000 mL at 01/19/19 1900 D5W-LR IV infusion 1,000 mL 1,000 mL IV Infusion CONTINUOUS 100 mL/hr at 1907 1,000 mLat 01/19/19 1907 HYDROcodone-acetaminophen (NORCO 5) 5-325 mg tablet 1 tablet 1 tablet Oral Q6HPRN HYDROcodone-acetaminophen (NORCO) 10-325 mg tablet 1 tablet 1 tablet Oral Q6HPRN 1 tablet at 01/20/19 0349 ibuprofen (IBU) tablet 600 mg 600 mg Oral Q6H ABX 600 mg at 01/20/19 0933 metoprolol tartrate (LOPRESSOR) tablet 12.5 mg 12.5 mg Oral BID 12.5 mg at 01/20/1933 morpHINE 30 mg/30 mL (fixed dose) ROCK WOOL APPLICATOR injection Intravenous CONTINUOUS zolpidem (AMBIEN) tablet 5 mg 5 mg Oral QHSPRN 5 mg at 01/19/192110 hydralAZINE (APRESOLINE) injection 10 mg 10 mg Slow IV Push Q6HPRN 10 mg at 01/18/19 1302 lactated ringers IV infusion 1,000 mL 1,000 mL IV Infusion CONTINUOUS 20 mL /hr at 01/18/19 1409 metoprolol (LOPRESSOR) injection 5 mg 5 mg Slow IV Push Q8HPRN morpHINE 2 mg/mL LOAD & RESCUE INJECTION SYRG Slow IV Push SEE- INSTRUCTIONS naloxone (NARCAN) injection 0.1 mg 0.1 mg Slow IV Push SEE-INSTRUCTIONS scopolamine transdermal (TRANSDERM-SCOP) patch 1.5 mg 1.5 mg Topical ONCE 1.5 mg at 01/18/19 0947 sennosides (SENOKOT) tablet 8.6 mg 8.6 mg Oral DAILY 8.6 mg at 01/20/1933 amitriptyline (ELAVIL) tablet 100 mg 100 mg Oral QHS 100 mg at 01/19/192110 diazePAM (VALIUM) tablet 5 mg 5 mg Oral BIDPRN 5 mg at 01/17/192034 docusate (COLACE) capsule 100 mg 100 mg Oral DAILY 100 mg at 01/20/19 0932 levothyroxine (SYNTHROID) tablet 150 mcg 150 mcg Oral QAM-0600 150 mcg at 01/20/19 0649 ondansetron (ZOFRAN (PF)) injection 4 mg 4 mg Slow IV Push Q6HPRN 4 mg at 01/19/19 1925 Assessment/Plan: Deena Aguirre is a 48 year old female POD #2 s/p ex-lap with ALVARO for pelvic pain and mass. Plan: Awaiting full bowel function. -Patient with tachycardia this AM. Also note one time temp elevation. Will continue to monitor. Anticipate D/C home when she meets all milestones. Shabnam Meraz MD Shabnam Durant MD - 01/19/2019 7:28 PM CDT Date of Service: 01/19/2019 Post-operative day # 1 SUBJECTIVE: Deena Aguirre is a 48 year old female POD #1 with current complaints of nausea / difficulty consuming fluids. Patient is ambulating with good pain control. She has passed no flatus. OBJECTIVE: Vitals: 1800 01/19/2019 Tmax/Tcurrent: 37/36.6C HR: 90 BP: 129/75 RR: 18 General: alert and oriented, no apparent distress Heart: regular rate and rhythm, no murmurs, gallops or rubs Lungs: normal Incision/Wound: clean, dry, bandage in place Abdomen: abdomen soft, non-tender, nondistended, normal active bowel sounds, no masses or organomegaly Extremeties/Musculoskeletal: normal.. Medications: Current Facility-Administered Medications Medication Dose Route Frequency Last Rate Last Dose acetaminophen (TYLENOL) tablet 650 mg 650 mg Oral Q6H ABX 650 mg at 01/19 1258 alum-mag hydroxide-simeth (MAALOX PLUS / MAG-AL PLUS) 200-200-20 mg/5 mL suspension 30 mL 30 mLOral Q6HPRN D5W-LR IV infusion 1,000 mL 1,000 mL IV Infusion CONTINUOUS 75 mL/hr at 11/01 1900 1,000 mL at 01/19/19 1900 D5W-LR IV infusion 1,000 mL 1,000 mL IV Infusion CONTINUOUS 100 mL/hr at 1907 1,000 mLat 01/19/19 1907 estradiol (ESTRACE) tablet 1 mg 1 mg Oral DAILY HYDROcodone-acetaminophen (NORCO 5) 5-325 mg tablet 1 tablet 1 tablet Oral Q6HPRN HYDROcodone-acetaminophen (NORCO) 10-325 mg tablet 1 tablet 1 tablet Oral Q6HPRN [START ON 01/20/2019] ibuprofen (IBU) tablet 600 mg 600 mg Oral Q6H ABX ketorolac (TORADOL) injection 30 mg 30 mg Slow IV Push Q6H ABX 30 mg at 01/19/19 1723 metoprolol tartrate (LOPRESSOR) tablet 12.5 mg 12.5 mg Oral BID morpHINE 30 mg/30 mL (fixed dose) ROCK WOOL APPLICATOR injection Intravenous CONTINUOUS zolpidem (AMBIEN) tablet 5 mg 5 mg Oral QHSPRN hydralAZINE (APRESOLINE) injection 10 mg 10 mg Slow IV Push Q6HPRN 10 mg at 01/18/19 1302 lactated ringers IV infusion 1,000 mL 1,000 mL IV Infusion CONTINUOUS 20 mL /hr at 01/18/19 1409 metoprolol (LOPRESSOR) injection 5 mg 5 mg Slow IV Push Q8HPRN morpHINE 2 mg/mL LOAD & RESCUE INJECTION SYRG Slow IV Push SEE- INSTRUCTIONS naloxone (NARCAN) injection 0.1 mg 0.1 mg Slow IV Push SEE-INSTRUCTIONS scopolamine transdermal (TRANSDERM-SCOP) patch 1.5 mg 1.5 mg Topical ONCE 1.5 mg at 01/18/19 0947 sennosides (SENOKOT) tablet 8.6 mg 8.6 mg Oral DAILY 8.6 mg at 01/19/19 0848 verapamil SR (CALAN SR) ER tablet 120 mg 120 mg Oral DAILY 120 mg at 11/01 0848 amitriptyline (ELAVIL) tablet 100 mg 100 mg Oral QHS 100 mg at 01/18/19 2246 diazePAM (VALIUM) tablet 5 mg 5 mg Oral BIDPRN 5 mg at 01/17/19 2035 docusate (COLACE) capsule 100 mg 100 mg Oral DAILY 100 mg at 01/19/19 0848 levothyroxine (SYNTHROID) tablet 150 mcg 150 mcg Oral QAM-0600 150 mcg at 01/19/19 0636 ondansetron (ZOFRAN (PF)) injection 4 mg 4 mg Slow IV Push Q6HPRN 4 mg at 01/19/19 1925 ASSESSMENT/PLAN: Assessment: Deena Aguirre is a 48 year old female POD #1 s/p ex-lap with removal of pelvic mass and ALVARO. Currently, she is having difficulty with nausea/po fluid intake. Plan: Will support with IV fluids presently as well as antacids/antiemetics. Consider discharge tomorrow. Shabnam Meraz MD 01/19/2019 19:45 Emerald arndt FNP - 01/19/2019 5:28 PM CDT [facility] Hospitalist Progress Note SUBJECTIVE: Patient seen at bedside sitting up eating dinner. 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 CURRENT MEDICATIONS - reviewed. Current Facility-Administered Medications Medication Dose Route Frequency Last Rate Last Dose acetaminophen (TYLENOL) tablet 650 mg 650 mg Oral Q6H ABX 650 mg at 01/19 1258 D5W-LR IV infusion 1,000 mL 1,000 mL IV Infusion CONTINUOUS estradiol (ESTRACE) tablet 1 mg 1 mg Oral DAILY HYDROcodone-acetaminophen (NORCO 5) 5-325 mg tablet 1 tablet 1 tablet Oral Q6HPRN HYDROcodone-acetaminophen (NORCO) 10-325 mg tablet 1 tablet 1 tablet Oral Q6HPRN [START ON 01/20/2019] ibuprofen (IBU) tablet 600 mg 600 mg Oral Q6H ABX ketorolac (TORADOL) injection 30 mg 30 mg Slow IV Push Q6H ABX 30 mg at 01/19/19 1723 metoprolol tartrate (LOPRESSOR) tablet 12.5 mg 12.5 mg Oral BID morpHINE 30 mg/30 mL (fixed dose) ROCK WOOL APPLICATOR injection Intravenous CONTINUOUS zolpidem (AMBIEN) tablet 5 mg 5 mg Oral QHSPRN hydralAZINE (APRESOLINE) injection 10 mg 10 mg Slow IV Push Q6HPRN 10 mg at 01/18/19 1302 lactated ringers IV infusion 1,000 mL 1,000 mL IV Infusion CONTINUOUS 20 mL /hr at 01/18/19 1409 metoprolol (LOPRESSOR) injection 5 mg 5 mg Slow IV Push Q8HPRN morpHINE 2 mg/mL LOAD & RESCUE INJECTION SYRG Slow IV Push SEE- INSTRUCTIONS naloxone (NARCAN) injection 0.1 mg 0.1 mg Slow IV Push SEE-INSTRUCTIONS scopolamine transdermal (TRANSDERM-SCOP) patch 1.5 mg 1.5 mg Topical ONCE 1.5 mg at 01/18/19 0947 sennosides (SENOKOT) tablet 8.6 mg 8.6 mg Oral DAILY 8.6 mg at 01/19/19 0848 verapamil SR (CALAN SR) ER tablet 120 mg 120 mg Oral DAILY 120 mg at 11/01 0848 amitriptyline (ELAVIL) tablet 100 mg 100 mg Oral QHS 100 mg at 01/18/19 2246 diazePAM (VALIUM) tablet 5 mg 5 mg Oral BIDPRN 5 mg at 01/17/19 2035 docusate (COLACE) capsule 100 mg 100 mg Oral DAILY 100 mg at 01/19/19 0848 levothyroxine (SYNTHROID) tablet 150 mcg 150 mcg Oral QAM-0600 150 mcg at 01/19/19 0636 ondansetron (ZOFRAN (PF)) injection 4 mg 4 mg Slow IV Push Q6HPRN 4 mg at 01/18/19 2349 PHYSICAL EXAM:1715 BP 107/64 (BP Location: Right arm, Patient Position: Supine) | Pulse 84 | Temp 36.6 C (97.8 F)(Axillary) | Resp 18 | Ht 1.6 m (5' 3") | Wt 77.1 kg (170 lb) | SpO2 94% | BMI 30.11 kg/m General: NAD HEENT: Anicteric sclerae, NCAT Lungs: CTAB Cardio: RRR, strong symmetric pulses Abdomen: Abd drsg c/d/i Genitourinary: No lesions Musculoskeletal: Normal muscle mass, no synovitis Skin: No rash or lesions, normal turgor Neuro: AAOx3, no focal deficits Psych: Normal affect LABS/IMAGING - reviewed, pertinent results as below: CBC BMP PT/INR WBC (10*3/L) Date Value 01/19/2019 14.28 (H) NA (mmol/L) Date Value 01/19/2019 138 No results found for: PT RBC (10*6/L) Date Value 01/19/2019 3.44 (L) K (mmol/L) Date Value 01/19/2019 4.1 No results found for: PTINR PLT (10*3/L) Date Value 01/19/2019 249 CALCIUM (mg/dL) Date Value 01/19/2019 8.8 HGB (g/dL) Date Value 01/19/2019 10.6 (L) CL (mmol/L) Date Value 01/19/2019 106 aPTT HCT (%) Date Value 01/19/2019 32.7 (L) BUN (mg/dL) Date Value 01/19/2019 16 No results found for: APTTPAT CREATININE (mg/dL) Date Value 01/19/2019 1.01 IMAGING- Hospital Encounter on 01/17/19 US PELVIS COMPLETE WITH TRANSVAGINAL Narrative * * * * * * * * ORIGINAL REPORT * * * * * * * * EXAM: PELVIC ULTRASOUND, TRANSABDOMINAL AND TRANSVAGINAL HISTORY: pelvic pain COMPARISON: Pelvic ultrasound dated 01/15/2019. FINDINGS: UTERUS: Surgical absence of the uterus. OVARIES: Surgical absent of the left ovary. An approximately 2.8 x 7.1 x 3.8 cm tubular anechoic structure is seen in the right lower quadrant with minimal peripheral flow on color Doppler. The right ovary is not clearly visualized. No free fluid. Impression 1. Unchanged 7.1 cm right lower quadrant tubular anechoic structure with peripheral weak vascularity, may represent a large ovarian cyst or hydrosalpinx. Ovarian torsion cannot be excluded. The right ovary is not fully identified. 2. Status post hysterectomy and left oophorectomy. I, Rosemarie Pruitt MD., have reviewed this study and agree with the above report. ASSESSMENT/PLAN Deena Aguirre is a 48 year old female with PMH as listed above, admitted to the hospital with: ight ovarian cyst versus hydrosalpinx who presents with right pelvic pain. S/P hydrosalpinx/pelvic mass/intra-abdominal adhesions removal per Dr. Alvarez 01/19/2020 Right pelvic pain due to ovarian cysts versus hydrosalpinx Pain control continue with the ketorolac Morphine ROCK WOOL APPLICATOR Uncontrolled hypertension likely related to pain stable Continue verapamil 120 ER daily Continue metoprolol 12.5 mg twice a day Hydralazine when necessary Hormone replacement Continue with estradiol 1 mg daily Estradiol levels pending Follow up Insomnia Continue with Ambien 5 mg when necessary HS Hypothyroidism Continue home levothyroxine Prophylaxis: DVT- Lovenox post surgery Stress Ulcer: no indication for prophylaxis Code Status: addressed: Full Code Disposition: Defer to primary VERONICA Wilkins Associated attestation - Arturo Gonzales MD - 01/19/2019 8:47 PM CDTI personally evaluated and examined the patient on 01/19/2019 and agree with PARTS CLERK Emerald Payton note as written. I actively participated in the decision-making process. Please see the PARTS CLERK's note for additional details. Arturo Gonzales M.D. 01/19/2019 8:47 PM Kera Alvarez MD - 01/19/2019 4:47 AM CDT DEENA AGUIRRE #: [id number] Date of service: 01/19/2019 SUBJECTIVE: Overnight patient had no complaints. Patient was tolerating clear diet. She has not started to ambulate. She reported pain was controlled with pain meds. She has not passed flatus and has not had a bowel movement postoperatively. Lochia was minimal. OBJECTIVE: Patient Vitals for the past 24 hrs: BP Temp Temp src Pulse Resp SpO2 Height 01/19/19 0100 73 94 % 01/19/19 0030 82 95 % 01/19/19 0000 79 97 % 01/18/19 2345 133/85 36.8 C (98.2 F) Oral 93 18 98 % 01/18/19 2330 101 95 % 01/18/19 2200 113 97 % 01/18/19 2145 113 98 % 01/18/190 (!) 142/97 36.9 C (98.5 F) Oral 118 96 % 01/18/192020 (!) 164/82 111 92 % 01/18/19 195 (!) 141/78 109 95 % 01/18/19 1945 36.6 C (97.8 F) TEMPORAL ART 01/18/19 1925 139/84 36.5 C (97.7 F) TEMPORAL ART 122 99 % 01/18/19 1356 (!) 155/88 37.4 C (99.3 F) TEMPORAL ART 99 18 1.6 m (5' 3 ") 01/18/19 1343 (!) 162/97 93 18 99 % 01/18/19 1312 (!) 159/89 90 18 99 % 01/18/19 1307 (!) 170/89 90 18 100 % 01/18/19 1302 (!) 172/96 87 18 100 % 01/18/19 1245 78 99 % 01/18/19 1240 74 99 % 01/18/19 1220 (!) 172/98 36.7 C (98 F) Oral 82 18 100 % 01/18/19 1200 82 100 % 01/18/19 1150 85 100 % 01/18/19 1100 91 18 97 % 01/18/19 1041 90 01/18/19 1040 99 % 01/18/19 1030 98 99 % 01/18/19 1000 85 100 % 01/18/19 0945 85 17 100 % 01/18/19 0930 81 99 % 01/18/19 0915 (!) 164/98 81 18 100 % 01/18/19 0900 (!) 164/98 36.7 C (98 F) Oral 82 18 100 % 01/18/19 0507 88 18 99 % 01/18/19 0500 (!) 131/92 36.7 C (98 F) Oral 87 18 97 % Intake/Output Summary (Last 24 hours) at 01/19/2019 0447 Last data filed at 01/18/2019 1855 Gross per 24 hour Intake 2500 ml Output 775 ml Net 1725 ml CONSTITUTIONAL: no apparent distress, appearing age-appropriate. RESPIRATORY: good inspiratory effort to inspections, lungs clear to auscultation bilaterally. No wheeze/stridor/crackles bilaterally. CARDIOVASCULAR: regular rate and rhythm. No rubs/gallops/murmurs. GASTROINTESTINAL: abdomen soft, non distended, appropriately tender postoperatively. Bowel sound present and active. Fundus firm and below umbilicus. NEUROLOGICAL/PSYCHIATRIC: alert, awake, and oriented x 3. Normal mood and affect. EXTREMITIES: No calf tenderness bilaterally. No pitting edema bilaterally. INCISION: clean, dry, intact. Labs: WBC (10*3/L) Date Value 01/17/2019 7.43 01/15/2019 7.73 HGB (g/dL) Date Value 01/17/2019 13.5 01/15/2019 14.6 HCT (%) Date Value 01/17/2019 41.0 01/15/2019 42.8 PLT (10*3/L) Date Value 01/17/2019 309 01/15/2019 349 AST(SGOT) (U/L) Date Value 01/15/2019 33 ALT(SGPT) (U/L) Date Value 01/15/2019 22 CREATININE (mg/dL) Date Value 01/17/2019 0.93 01/15/2019 0.87 PROTEIN (no units) Date Value 01/17/2019 Negative 01/15/2019 Negative Radiology: No new Radiology Medications: Current Facility-Administered Medications Medication Dose Route Frequency Last Rate Last Dose D5W-LR IV infusion 1,000 mL 1,000 mL IV Infusion CONTINUOUS 125 mL/hr at 1133 1,000 mLat 01/18/19 1133 hydralAZINE (APRESOLINE) injection 10 mg 10 mg Slow IV Push Q6HPRN 10 mg at 01/18/19 1302 lactated ringers IV infusion 1,000 mL 1,000 mL IV Infusion CONTINUOUS 20 mL /hr at 01/18/19 1409 metoprolol (LOPRESSOR) injection 5 mg 5 mg Slow IV Push Q8HPRN metoprolol tartrate (LOPRESSOR) tablet 25 mg 25 mg Oral BID 25 mg at 10/01 2246 morpHINE 2 mg/mL LOAD & RESCUE INJECTION SYRG Slow IV Push SEE- INSTRUCTIONS morpHINE 30 mg/30 mL (fixed dose) [employer] APPLICATOR injection Intravenous CONTINUOUS 30 mg at 01/18/19 2332 naloxone (NARCAN) injection 0.1 mg 0.1 mg Slow IV Push SEE-INSTRUCTIONS scopolamine transdermal (TRANSDERM-SCOP) patch 1.5 mg 1.5 mg Topical ONCE 1.5 mg at 01/18/19 0947 sennosides (SENOKOT) tablet 8.6 mg 8.6 mg Oral DAILY verapamil SR (CALAN SR) ER tablet 120 mg 120 mg Oral DAILY amitriptyline (ELAVIL) tablet 100 mg 100 mg Oral QHS 100 mg at 01/18/19 2246 diazePAM (VALIUM) tablet 5 mg 5 mg Oral BIDPRN 5 mg at 01/17/19 2035 docusate (COLACE) capsule 100 mg 100 mg Oral DAILY Stopped at 01/18/19 0900 levothyroxine (SYNTHROID) tablet 150 mcg 150 mcg Oral QAM-0600 150 mcg at 01/18/19 0854 ondansetron (ZOFRAN (PF)) injection 4 mg 4 mg Slow IV Push Q6HPRN 4 mg at 01/18/19 2349 ASSESSMENT Deena Aguirre is a 48 year old female s/p ex-lap, lysis of adhesions, and removal of right pelvic sidewall mass, post-op day #1. Patient is recovering well: responding appropriately, good urine output,adequate pain control, and stable vitals. PLAN Doing well. Continue routine post-op care Anticipate discharge home later this evening or tomorrow if met all post-op milestones Kera Alvarez MD 01/19/2019 11:48 AM Arturo Herrera MD - 01/18/2019 1:25 PM CDT [facility] Medicine Progress Note Name: Deena Aguirre : 1970 Admit Date: 01/17/2019 PCP on file: Marti Morocho ASSESSMENT: Deena Aguirre is a 48 year old female with h/o HTN, CHF, DM2, hypothyroidism, and recently found right ovarian cyst vs hydrosalpinx, who presented with uncontrolled right pelvic pain. PLAN: # Right pelvic pain due to ovarian cyst vs hydrosalpinx - pain control - Surgery later today per 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 - Pt has no ACS symptoms such as CP/SOB/palpitations. She does have h/o DM2 that has resolved after gastric bypass. Remote h/o CHF (related to per patient), not on meds. She has very excellent functional capacity. Echo showed EF 50-55% without significant abnormality. It's ok to proceed to OR from medicine standpoint for planned 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 surgery. Risks and benefits were explained to the patient and her family, who verbalized understanding and agreed with the plan of surgery # Uncontrolled HTN - uncontrolled BP probably related to pain - on verapamil - would start BB given h/o CHF - hydralazine prn # h/o DM2 - resolved after gastric bypass. Not on medication at home # Hypothyroidism - continue home levothyroxine Dispo: home VTE Prophylaxis: Lovenox after surgery Code Status: fc Case has been discussed with anesthesiology, RN, patient, and her family. Previous notes reviewed. All patient/family questions and concerns answered and current plan of care discussed in detail. Electronically signed by: Arturo Gonzales MD 01/18/2019 at 1:25 PM SUBJECTIVE/ 24-HOUR HOSPITAL EVENTS: 01/18: still c/o severe right pelvic pain 01/23. OBJECTIVE: Vital signs range: Temp: [36.7 C (98 F)-37.1 C (98.7 F)] 36.7 C (98 F) Pulse: [74-114] 90 Resp: [18] 18 BP: (131-200)/(84-115) 170/89 Most recent vital signs: BP (!) 170/89 | Pulse 90 | Temp 36.7 C (98 F) (Oral) | Resp 18 | Wt 77.1 kg (170 lb) | [id number]% | BMI 29.18 kg/m I/O: I/O last 3 completed shifts: In: - Out: 200 [Urine:200] PHYSICAL EXAM: Constitutional: Well-developed, well-nourished, and in no distress. Appears stated age. HENT: Normocephalic and atraumatic. Normal hearing. No ear discharge. Oropharynx is clear and moist. Eyes: Conjunctivae and EOM are normal. PERRL. No scleral icterus. Neck: Normal range of motion. Neck supple. No JVD. No tracheal deviation. No thyromegaly. Cardiovascular: S1S2 with normal rate and rhythm. No murmur, rub or gallop. Normal distal pulses Pulmonary/Chest: No respiratory distress. Clear to auscultation bilaterally. No wheezes, rales, rhonchi. No tenderness. Abdominal: Soft. No distension. Tenderness to RLQ. No rebound and no guarding. Bowel sounds are normal. Musculoskeletal: Normal range of motion. No edema, tenderness or deformity. Lymphadenopathy: No adenopathy Neurological: Alert and oriented to person, place, and time. Normal sensation and normal strength. No tremor. Gait normal. Skin: Skin is warm, dry and intact. No rash noted. No cyanosis or erythema. Nails show no clubbing. Psychiatric: Mood, affect and judgment normal. LABS: I reviewed all the relevant patient's new lab test results Recent Results (from the past 24 hour(s)) BASIC METABOLIC PANEL (NA, K, CL, CO2, GLUCOSE, BUN, CREATININE, CA) Collection Time: 01/17/19 4:31 PM Result Value Ref Range NA 141 135 - 145 mmol/L K 3.6 3.5 - 5.0 mmol/L CL 107 98 - 108 mmol/L CO2 TOTAL 24 23 - 31 mmol/L AGAP 10 2 - 16 BUN 15 7 - 23 mg/dL GLUCOSE 86 70 - 110 mg/dL CREATININE 0.93 0.50 - 1.04 mg/dL CALCIUM 9.0 8.6 - 10.6 mg/dL eGFR Calculation (Non-) 64.1 mL/min/1.73m2 eGFR Calculation () 77.7 mL/min/1.73m2 URINALYSIS Collection Time: 01/17/19 4:31 PM Result Value Ref Range APPEARANCE Clear Clear COLOR Yellow Yellow PH 5.5 4.8 - 8.0 SP GRAVITY 1.025 1.003 - 1.030 GLU U QUAL Negative Negative BLOOD Negative Negative KETONES Negative Negative PROTEIN Negative Negative UROBILIN 0.2 mg/dL 0-1.0 mg/dL BILIRUBIN Negative Negative NITRITE Negative Negative LEUK ANNIE Negative Negative RBC/HPF 0 0 - 3 HPF WBC/HPF 0 0 - 5 HPF BACTERIA Negative Negative CBC WITH DIFFERENTIAL Collection Time: 01/17/19 4:31 PM Result Value Ref Range WBC 7.43 4.30 - 11.10 10*3/L RBC 4.41 3.93 - 5.25 10*6/L HGB 13.5 11.6 - 15.0 g/dL HCT 41.0 35.7 - 45.2 % MCV 93.0 80.6 - 95.5 fL MCH 30.6 25.9 - 32.8 pg MCHC 32.9 31.6 - 35.1 g/dL RDW-SD 45.8 39.0 - 49.9 fL RDW-CV 13.3 12.0 - 15.5 % PLT 309 166 - 358 10*3/L MPV 9.8 9.5 - 12.9 fL NRBC/100 WBC 0.0 0.0 - 10.0 /100 WBCs NRBC x10^3 <0.01 10*3/L GRAN MAT (NEUT) % 69.6 % IMM GRAN % 0.30 % LYMPH % 23.0 % MONO % 5.5 % EOS % 1.3 % BASO % 0.3 % GRAN MAT x10^3(ANC) 5.17 1.88 - 7.09 10*3/uL IMM GRAN x10^3 <0.03 0.00 - 0.06 10*3/uL LYMPH x10^3 1.71 1.32 - 3.29 10*3/uL MONO x10^3 0.41 0.33 - 0.92 10*3/uL EOS x10^3 0.10 0.03 - 0.39 10*3/uL BASO x10^3 <0.03 0.01 - 0.07 10*3/uL Type and Screen - ONCE STAT Collection Time: 01/18/19 5:00 AM Result Value Ref Range ABO & RH O Positive IAT Negative ABORH CONFIRMATION Collection Time: 01/18/19 11:30 AM Result Value Ref Range ABO & RH O Positive IMAGING: I reviewed all the relevant patient's new radiology test results Hospital Encounter on 01/17/19 US PELVIS COMPLETE WITH TRANSVAGINAL Narrative * * * * * * * * ORIGINAL REPORT * * * * * * * * EXAM: PELVIC ULTRASOUND, TRANSABDOMINAL AND TRANSVAGINAL HISTORY: pelvic pain COMPARISON: Pelvic ultrasound dated 01/15/2019. FINDINGS: UTERUS: Surgical absence of the uterus. OVARIES: Surgical absent of the left ovary. An approximately 2.8 x 7.1 x 3.8 cm tubular anechoic structure is seen in the right lower quadrant with minimal peripheral flow on color Doppler. The right ovary is not clearly visualized. No free fluid. Impression 1. Unchanged 7.1 cm right lower quadrant tubular anechoic structure with peripheral weak vascularity, may represent a large ovarian cyst or hydrosalpinx. Ovarian torsion cannot be excluded. The right ovary is not fully identified. 2. Status post hysterectomy and left oophorectomy. I, Rosemarie Pruitt MD., have reviewed this study and agree with the above report. MEDICATIONS: I reviewed the current inpatient medications ordered Current Facility-Administered Medications Medication Dose Route Frequency Last Rate Last Dose D5W-LR IV infusion 1,000 mL 1,000 mL IV Infusion CONTINUOUS 125 mL/hr at 1133 1,000 mLat 01/18/19 1133 hydralAZINE (APRESOLINE) injection 10 mg 10 mg Slow IV Push Q6HPRN 10 mg at 01/18/19 1302 metoprolol tartrate (LOPRESSOR) tablet 25 mg 25 mg Oral BID Stopped at 1315 scopolamine transdermal (TRANSDERM-SCOP) patch 1.5 mg 1.5 mg Topical ONCE 1.5 mg at 01/18/19 0947 verapamil SR (CALAN SR) ER tablet 120 mg 120 mg Oral DAILY Stopped at 10/01 0900 amitriptyline (ELAVIL) tablet 100 mg 100 mg Oral QHS 100 mg at 01/17/192141 diazePAM (VALIUM) tablet 5 mg 5 mg Oral BIDPRN 5 mg at 01/17/192034 docusate (COLACE) capsule 100 mg 100 mg Oral DAILY Stopped at 01/18/19 0900 HYDROmorphone (DILAUDID) injection 1 mg 1 mg Slow IV Push Q4HPRN 1 mg at 01/18/19 0847 levothyroxine (SYNTHROID) tablet 150 mcg 150 mcg Oral QAM-0600 150 mcg at 01/18/19 0854 ondansetron (ZOFRAN (PF)) injection 4 mg 4 mg Slow IV Push Q6HPRN documented in this encounter Plan of Treatment Date Type Specialty Care Team Description 01/25/2019 Nurse Visit Obstetrics & Gynecology Kera Alvarez MD [address] [place] [address] [address] [place], [place] [address] Nurse, [facility] Women[facility] Name Type Priority Associated Diagnoses Date/Time SURGICAL PATHOLOGY EXAM LAB STAT 01/18/2019 5:50 PM CDT Name Type Priority Associated Diagnoses Order Schedule EKG-12 LEAD ROUTINE HEART STATION DEONNA ONCE for 1 Occurrences starting 01/18/2019 until 01/18/2019 SURGICAL PATHOLOGY LAB Routine ONCE for 1 EXAM Occurrences starting 01/18/2019 Health Maintenance Due Date Last Done Comments DTaP,Tdap,and Td Vaccines (1 - 01/29/1988 Tdap) PAP SMEAR 1990 MAMMOGRAM 2009 INFLUENZA VACCINE (#1) 2019 04/25/2017 PNEUMOCOCCAL 0-64 YEARS COMBINED Aged Out No longer eligible based on SERIES patient's age to complete this topic documented as of this encounter Procedures Procedure Name Priority Date/Time Associated Comments Diagnosis CBC WITH Routine 01/21/2019 1:19 Results for this DIFFERENTIAL AM CDT procedure are in the results section. CBC WITH DIFF Routine 01/21/2019 1:19 Results for this AM CDT procedure are in the results section. COMP. METABOLIC Routine 01/21/2019 1:19 Results for this PANEL (07558) AM CDT procedure are in the results section. MAGNESIUM Routine 01/21/2019 1:19 Results for this AM CDT procedure are in the results section. ACTIVATED PARTIAL DEONNA 01/21/2019 1:18 Results for this THRMPLAS BART AM CDT procedure are in the results section. D-DIMER DEONNA 01/21/2019 1:18 Results for this AM CDT procedure are in the results section. PROTHROMBIN TIME / DEONNA 01/21/2019 1:18 Results for this INR AM CDT procedure are in the results section. UNILATERAL VENOUS STAT 01/20/2019 8:29 DUPLEX UPPER BY PM CDT VASCULAR LAB CBC WITH Routine 01/20/2019 4:18 Results for this DIFFERENTIAL AM CDT procedure are in the results section. CBC WITH DIFF Routine 01/20/2019 4:18 Results for this AM CDT procedure are in the results section. ESTRADIOL, LEVEL Routine 01/19/2019 5:37 Results for this PM CDT procedure are in the results section. CBC WITH Routine 01/19/2019 9:10 Results for this DIFFERENTIAL AM CDT procedure are in the results section. CBC WITH DIFF Routine 01/19/2019 9:10 Results for this AM CDT procedure are in the results section. BASIC METABOLIC Routine 01/19/2019 9:10 Results for this PANEL (NA, K, CL, AM CDT procedure are in CO2, GLUCOSE, BUN, the results CREATININE, CA) section. EXPLORATORY Level 1 A 01/18/2019 2:02 Same, pending LAPAROTOMY (within 2 hours) PM CDT pathology DIAGNOSTIC Level 1 A 01/18/2019 2:02 Same, pending LAPAROSCOPY (within 2 hours) PM CDT pathology ABORH CONFIRMATION Routine 01/18/2019 11:30 Results for this AM CDT procedure are in the results section. ECHO ROUTINE DEONNA 01/18/2019 10:49 Essential W/DOPPLER COLOR AM CDT hypertension History of CHF (congestive heart failure) EKG-12 LEAD Routine 01/18/2019 6:08 AM CDT TYPE AND SCREEN STAT 01/18/2019 5:00 Results for this AM CDT procedure are in the results section. US PELVIS COMPLETE STAT 01/17/2019 5:58 Pelvic pain Results for this WITH TRANSVAGINAL PM CDT procedure are in the results section. CBC WITH STAT 01/17/2019 4:31 Pelvic pain Results for this DIFFERENTIAL PM CDT procedure are in the results section. URINALYSIS STAT 01/17/2019 4:31 Pelvic pain Results for this PM CDT procedure are in the results section. CBC WITH DIFF STAT 01/17/2019 4:31 Pelvic pain Results for this PM CDT procedure are in the results section. BASIC METABOLIC STAT 01/17/2019 4:31 Pelvic pain Results for this PANEL (NA, K, CL, PM CDT procedure are in CO2, GLUCOSE, BUN, the results CREATININE, CA) section. documented in this encounter Results CBC WITH DIFFERENTIAL (01/21/2019 1:19 AM CDT) WBC 7.64 4.30 - 11.10 [facility] 10*3/L [facility] RBC 2.85 (L) 3.93 - 5.25 [facility] 10*6/L [facility] HGB 8.7 (L) 11.6 - 15.0 [facility] g/dL [facility] HCT 27.4 (L) 35.7 - 45.2 % [facility] MCV 96.1 (H) 80.6 - 95.5 fL [facility] MCH 30.5 25.9 - 32.8 pg [facility] MCHC 31.8 31.6 - 35.1 [facility] g/dL [facility] RDW-SD 48.3 39.0 - 49.9 fL [facility] RDW-CV 13.7 12.0 - 15.5 % [facility] PLT 186 166 - 358 [facility] 10*3/L [facility] MPV 10.1 9.5 - 12.9 fL [facility] NRBC/100 WBC 0.0 0.0 - 10.0 /100 [facility] WBCs [facility] NRBC x10^3 <0.01 10*3/L [facility] GRAN MAT (NEUT) % 82.9 % [facility] IMM GRAN % 0.50 % [facility] LYMPH % 10.1 % [facility] MONO % 5.4 % [facility] EOS % 0.7 % [facility] BASO % 0.4 % [facility] GRAN MAT x10^3(ANC) 6.34 1.88 - 7.09 [facility] 10*3/uL [facility] IMM GRAN x10^3 0.04 0.00 - 0.06 [facility] 10*3/uL [facility]OSPITAL LAB[facility] LYMPH x10^3 0.77 (L) 1.32 - 3.29 [facility] 10*3/uL [facility]ITAL [facility] MONO x10^3 0.41 0.33 - 0.92 [facility] 10*3/uL [facility] EOS x10^3 0.05 0.03 - 0.39 [facility] 10*3/uL [facility] BASO x10^3 0.03 0.01 - 0.[address]3/uL [facility] Specimen Blood - VENOUS Performing Organization Address City/[facility]code Phone Number [facility] CLIA: [id number], [address] [place] [address] MAGNESIUM (01/21/2019 1:19 AM CDT) MAGNESIUM 1.7 1.7 - 2.4 mg/dL [facility] Specimen Blood - VENOUS Performing Organization Address City/[facility]alscode Phone Number [facility] CLIA: [id number], [address] [place] [address] COMP. METABOLIC PANEL (97685) (01/21/2019 1:19 AM CDT) NA 141 135 - 145 [facility] mmol/L [facility] K 3.8 3.5 - 5.0 [facility] mmol/L [facility] CL 110 (H) 98 - 108 mmol/L [facility] CO2 TOTAL 23 23 - 31 mmol/L [facility] AGAP 8 2 - 16 [facility] BUN 13 7 - 23 mg/dL [facility] GLUCOSE 111 (H) 70 - 110 mg/dL [facility] CREATININE 0.78 0.50 - 1.04 [facility] mg/dL [facility] TOTAL BILI 0.3 0.1 - 1.1 mg/dL [facility] CALCIUM 8.3 (L) 8.6 - 10.6 [facility] mg/dL [facility] T PROTEIN 5.7 (L) 6.3 - 8.2 g/dL [facility] ALBUMIN 2.9 (L) 3.5 - 5.0 g/dL [facility] ALK PHOS 83 34 - 122 U/L [facility] ALT(SGPT) 23 9 - 51 U/L [facility] AST(SGOT) 26 13 - 40 U/L [facility] eGFR Calculation 78.5 mL/min/1.73m2 [facility] ([facility] LABORATORY [place]) eGFR Calculation 95.1 mL/min/1.73m2 [facility] () [facility] Specimen Blood - VENOUS Narrative Performed At Association of Glomerular Filtration Rate (GFR) [facility] and Staging of Kidney Disease* + [...] tests). Performing Organization Address City/State/Zipcode Phone Number [facility] CLIA: [id number], [address] [place] [address] PROTHROMBIN TIME / INR (01/21/2019 1:18 AM CDT) PROTIME PATIENT 16.0 (H) 12.0 - 14.7 [facility] LABORATORY INR 1.4Comment: Normal [facility] INR <1.1; Warfarin [facility] Therapeutic range LABORATORY 2.0 to 3.0 or 2.5 to 3.5, depending upon the indications. Specimen Blood - VENOUS Performing Organization Address [facility]/Zipcode Phone Number [facility] CLIA: [id number], [address] [place] [address] aPTT (01/21/2019 1:18 AM CDT) Pathologist [facility] APTT Patient 40 (H) 23 - 38 Seconds [facility]OR[facility]ORY Specimen Blood - VENOUS Narrative Performed At The [facility] patient population mean normal value [facility] for aPTT is 30 seconds. Performing Organization Address [facility]code Phone Number [facility] CLIA: [id number], [address] [place] [address] D-DIMER (01/21/2019 1:18 AM CDT) [facility] D-DIMER 1.42 (H) <0.41 g/mL (FEU) [facility] LABOR[facility] Specimen Blood - VENOUS Narrative Performed At This test may be used in conjunction with a [facility]ORY clinical pretest probability (PTP) assessment model to exclude pulmonary embolism (PE) and as an aid in the diagnosis of deep venous thrombosis (DVT) in outpatients suspected of PE or DVT. A D-Dimer value less than 0.50 g/ml (FEU) has a negative predicative value of 98 to 100% (95% CI) for the exclusion of pulmonary embolism (PE) and 95 to 100% (95% CI) as an aid in the diagnosis of deep vein thrombosis (DVT) when there is low or moderate pretest probability of PE or DVT. D-Dimer values are expressed in initial fibrinogen equivalent units (FEU). Performing Organization Address [facility]code Phone Number [facility] CLIA: [id number], [address] [place] [address] CBC WITH DIFFERENTIAL (01/20/2019 4:18 AM CDT) [facility] WBC 6.73 4.30 - 11.10 [facility] 10*3/L HOSPITAL LABORATORY RBC 3.05 (L) 3.93 - 5.25 [facility] 10*6/L H[facility]PITAL LAB[facility]ATORY HGB 9.2 (L) 11.6 - 15.0 [facility] g/dL HOSPITAL LABORATORY HCT 30.0 (L) 35.7 - 45.2 % [facility] MCV 98.4 (H) 80.6 - 95.5 fL [facility] MCH 30.2 25.9 - 32.8 pg [facility] MCHC 30.7 (L) 31.6 - 35.1 [facility] g/dL [facility] RDW-SD 49.0 39.0 - 49.9 fL [facility] RDW-CV 13.6 12.0 - 15.5 % [facility] PLT 225 166 - 358 [facility] 10*3/L [facility] MPV 9.9 9.5 - 12.9 fL [facility] NRBC/100 WBC 0.0 0.0 - 10.0 /100 [facility] WBCs [facility] NRBC x10^3 <0.01 10*3/L [facility] GRAN MAT (NEUT) % 72.1 % [facility] IMM GRAN % 0.30 % [facility] LYMPH % 24.7 % [facility] MONO % 1.3 % [facility] EOS % 1.2 % [facility] BASO % 0.4 % [facility]ORATORY GRAN MAT x10^3(ANC) 4.85 1.88 - 7.09 [facility] 10*3/uL [facility] IMM GRAN x10^3 <0.03 0.00 - 0.06 [facility] 10*3/uL HOSPITAL LABORATORY LYMPH x10^3 1.66 1.32 - 3.29 [facility] 10*3/uL HOSPITAL LABORATORY MONO x10^3 0.09 (L) 0.33 - 0.92 [facility] 10*3/uL [facility] EOS x10^3 0.08 0.03 - 0.39 [facility] 10*3/uL [facility] BASO x10^3 0.03 0.01 - 0.07 [facility] 10*3/uL [facility] Specimen Blood - HAND, LEFT Performing Organization Address City/State/Zipcode Phone Number [facility] CLIA: [id number], [address] [place] [address] [facility] (01/19/2019 5:37 PM CDT) E2 34 pg/mL [facility] LABORATORY SERVICES Specimen Blood - WRIST, RIGHT Narrative Performed At Estradiol Reference Ranges: [facility] LABORATORY SERVICES Female: Follicular 27-122 pg/mL [id number] pg/mL Luteal 49-291 pg/mL Post Menopausal 20-40 pg/mL Male 20-47 pg/mL Performing Organization Address City/State/Zipcode Phone Number [facility] SERVICES CLIA: [id number], [address] [place] [address] [facility] CBC WITH DIFFERENTIAL (01/19/2019 9:10 AM CDT) WBC 14.28 (H) 4.30 - 11.10 [facility] 10*3/L [facility] RBC 3.44 (L) 3.93 - 5.25 [facility] 10*6/L [facility] HGB 10.6 (L) 11.6 - 15.0 [facility] g/dL [facility] HCT 32.7 (L) 35.7 - 45.2 % [facility] MCV 95.1 80.6 - 95.5 fL [facility] MCH 30.8 25.9 - 32.8 pg [facility] MCHC 32.4 31.6 - 35.1 [facility] g/dL [facility] RDW-SD 46.2 39.0 - 49.9 fL [facility] RDW-CV 13.3 12.0 - 15.5 % [facility] PLT 249 166 - 358 [facility] 10*3/L [facility] MPV 10.2 9.5 - 12.9 fL [facility] NRBC/100 WBC 0.0 0.0 - 10.0 /100 [facility] WBCs [facility] NRBC x10^3 <0.01 10*3/L [facility] GRAN MAT (NEUT) % 85.5 % [facility] IMM GRAN % 0.40 % [facility] LYMPH % 7.0 % [facility] MONO % 7.0 % [facility] EOS % 0.0 % [facility] BASO % 0.1 % [facility] LABORATORY GRAN MAT x10^3(ANC) 12.21 (H) 1.88 - 7.09 [facility] 10*3/uL [facility]OR[facility] IMM GRAN x10^3 0.06 0.00 - 0.06 [facility] 10*3/uL HOSPITAL LABORATORY LYMPH x10^3 1.00 (L) 1.32 - 3.29 [facility] 10*3/uL HOSPITAL LABORATORY MONO x10^3 1.00 (H) 0.33 - 0.92 [facility] 10*3/uL [facility] EOS x10^3 <0.03 (L) 0.03 - 0.39 [facility] 10*3/uL [facility] BASO x10^3 <0.03 0.01 - 0.[address]3/uL [facility] Specimen Blood - HAND, RIGHT Performing Organization Address City/State/Zipcode Phone Number [facility] CLIA: [id number], [address] [place] [address] BASIC METABOLIC PANEL (NA, K, CL, CO2, GLUCOSE, BUN, CREATININE, CA) (2018 9:10 AM CDT) NA 138 135 - 145 [facility] mmol/L [facility] K 4.1 3.5 - 5.0 [facility] mmol/L [facility] CL 106 98 - 108 mmol/L [facility] LABORATORY CO2 TOTAL 24 23 - 31 mmol/L [facility] LABORATORY AGAP 8 2 - 16 [facility] LABORATORY BUN 16 7 - 23 mg/dL [facility] LABORATORY GLUCOSE 114 (H) 70 - 110 mg/dL [facility] LABORATORY CREATININE 1.01 0.50 - 1.04 [facility] mg/dL [facility] CALCIUM 8.8 8.6 - 10.6 [facility] mg/dL [facility] eGFR Calculation 58.3 mL/min/1.73m2 [facility] (Non-[facility] LABORATORY [place]) eGFR Calculation 70.6 mL/min/1.73m2 [facility] () [facility] Specimen Blood - HAND, RIGHT Narrative Performed At Association of Glomerular Filtration Rate (GFR) [facility] LABORATORY and Staging of Kidney Disease* + [...] tests). Performing Organization Address City/State/Zipcode Phone Number [facility] CLIA: [id number], [address] [place] [address] ABORH CONFIRMATION (01/18/2019 11:30 AM CDT) ABO & RH O Positive LAB Comment: Performed at [facility] Laboratory [facility] Blood Bank [address] [place] [phone] Toll Free: [phone] CLIA No. [id number] Specimen Performing Organization Address City/State/Zipcode Phone Number [facility] Type and Screen - ONCE STAT (01/18/2019 5:00 AM CDT) ABO & RH O Positive LAB Comment: Performed at [facility] Laboratory [facility] Blood Bank [address] [place] [phone] Toll Free: [phone] CLIA No. [id number] IAT Negative LAB Comment: Performed at [facility] Blood Bank [address] [place] [phone] Toll Free: [phone] CLIA No. [id number] Specimen Performing Organization Address City/[facility]/Zipcode Phone Number [facility] US PELVIS COMPLETE WITH TRANSVAGINAL (01/17/2019 5:58 PM CDT) Specimen Impressions Performed At PACS/VR/DOSE 1.Unchanged 7.1 cm right lower quadrant tubular anechoic structure with peripheral weak vascularity, may represent a large ovarian cyst or hydrosalpinx. Ovarian torsion cannot be excluded. The right ovary is not fully identified. 2.Status post hysterectomy and left oophorectomy. Mirian Dudley MD., have reviewed this study and agree with the above report. Narrative Performed At * * * * * * * * ORIGINAL REPORT * * * * * * * * PACS/VR/DOSE EXAM: PELVIC ULTRASOUND, TRANSABDOMINAL AND TRANSVAGINAL HISTORY: pelvic pain COMPARISON: Pelvic ultrasound dated 01/15/2019. FINDINGS: UTERUS: Surgical absence of the uterus. OVARIES: Surgical absent of the left ovary. An approximately 2.8 x 7.1 x 3.8 cm tubular anechoic structure is seen in the right lower quadrant with minimal peripheral flow on color Doppler. The right ovary is not clearly visualized. Nofree fluid. Procedure Note [facility], Radiant Results Inft User - 01/17/2019 6:13 PM CDT * * * * * * * * ORIGINAL REPORT * * * * * * * * EXAM: PELVIC ULTRASOUND, TRANSABDOMINAL AND TRANSVAGINAL HISTORY: pelvic pain COMPARISON: Pelvic ultrasound dated 01/15/2019. FINDINGS: UTERUS: Surgical absence of the uterus. OVARIES: Surgical absent of the left ovary. An approximately 2.8 x 7.1 x 3.8 cm tubular anechoic structure is seen in the right lower quadrant with minimal peripheral flow on color Doppler. The right ovary is not clearly visualized. No free fluid. IMPRESSION 1. Unchanged 7.1 cm right lower quadrant tubular anechoic structure with peripheral weak vascularity, may represent a large ovarian cyst or hydrosalpinx. Ovarian torsion cannot be excluded. The right ovary is not fully identified. 2. Status post hysterectomy and left oophorectomy. Rosemarie Dudley MD., have reviewed this study and agree with the above report. Performing Organization Address City/State/Zipcode Phone Number PACS/VR/DOSE CBC WITH DIFFERENTIAL (01/17/2019 4:31 PM CDT) WBC 7.43 4.30 - 11.10 [facility] 10*3/L [facility] RBC 4.41 3.93 - 5.25 [facility] 10*6/L HOSPITAL LABORATORY HGB 13.5 11.6 - 15.0 g/dL [facility] LABORATORY HCT 41.0 35.7 - 45.2 % [facility] LABORATORY MCV 93.0 80.6 - 95.5 fL [facility] LABORATORY MCH 30.6 25.9 - 32.8 pg [facility] LABORATORY MCHC 32.9 31.6 - 35.1 g/dL [facility] LABORATORY RDW-SD 45.8 39.0 - 49.9 fL [facility] LABORATORY RDW-CV 13.3 12.0 - 15.5 % [facility] LABORATORY PLT 309 166 - 358 [facility] 10*3/L [facility] MPV 9.8 9.5 - 12.9 fL [facility] LABORATORY NRBC/100 WBC 0.0 0.0 - 10.0 /100 [facility] WBCs [facility] NRBC x10^3 <0.01 10*3/L [facility] LABORATORY GRAN MAT (NEUT) % 69.6 % [facility] LABORATORY IMM GRAN % 0.30 % [facility] LABORATORY LYMPH % 23.0 % [facility] LABORATORY MONO % 5.5 % [facility] LABORATORY EOS % 1.3 % [facility] LABORATORY BASO % 0.3 % [facility] LABORATORY GRAN MAT x10^3(ANC) 5.17 1.88 - 7.09 [facility] 10*3/uL HOSPITAL LABORATORY IMM GRAN x10^3 <0.03 0.00 - 0.06 [facility] 10*3/uL HOSPITAL LABORATORY LYMPH x10^3 1.71 1.32 - 3.29 [facility] 10*3/uL HOSPITAL LABORATORY MONO x10^3 0.41 0.33 - 0.92 [facility] 10*3/uL HOSPITAL LABORATORY EOS x10^3 0.10 0.03 - 0.39 [facility] 10*3/uL HOSPITAL LABORATORY BASO x10^3 <0.03 0.01 - 0.07 [facility] 10*3/uL [facility] LABOR[facility] Specimen Blood - VENOUS Performing Organization Address City/State/Zipcode Phone Number [facility] CLIA: [id number], [address] [place] [address] URINALYSIS (01/17/2019 4:31 PM CDT) APPEARANCE Clear Clear [facility] LABORATORY COLOR Yellow Yellow [facility] LABORATORY PH 5.5 4.8 - 8.0 [facility] LABORATORY SP GRAVITY 1.025 1.003 - 1.030 [facility] LABORATORY GLU U QUAL Negative Negative [facility] LABORATORY BLOOD Negative Negative [facility] LABORATORY KETONES Negative Negative [facility] LABORATORY PROTEIN Negative Negative [facility] LABORATORY UROBILIN 0.2 mg/dL 0-1.0 mg/dL [facility] LABORATORY BILIRUBIN Negative Negative [facility] LABORATORY NITRITE Negative Negative [facility] LABORATORY LEUK ANNIE Negative Negative [facility] LABORATORY RBC/HPF 0 0 - 3 HPF [facility] LABORATORY WBC/HPF 0 0 - 5 HPF [facility] LABORATORY BACTERIA Negative Negative [facility] LABORATORY Specimen Urine - URINE, CLEAN CATCH Performing Organization Address City/State/Zipcode Phone Number [facility] CLIA: [id number], [address] [place] [address] BASIC METABOLIC PANEL (NA, K, CL, CO2, GLUCOSE, BUN, CREATININE, CA) (2018 4:31 PM CDT) NA 141 135 - 145 mmol/L [facility] LABORATORY K 3.6 3.5 - 5.0 mmol/L [facility] LABORATORY CL 107 98 - 108 mmol/L [facility] LABORATORY CO2 TOTAL 24 23 - 31 mmol/L [facility] LABORATORY AGAP 10 2 - 16 [facility] LABORATORY BUN 15 7 - 23 mg/dL [facility] LABORATORY GLUCOSE 86 70 - 110 mg/dL [facility] LABORATORY CREATININE 0.93 0.50 - 1.04 [facility] mg/dL [facility] CALCIUM 9.0 8.6 - 10.6 mg/dL [facility] LABORATORY eGFR Calculation 64.1 mL/min/1.73m2 [facility] (Non-) [facility] eGFR Calculation 77.7 mL/min/1.73m2 [facility] () [facility] Specimen Blood - VENOUS Narrative Performed At Association of Glomerular Filtration Rate (GFR) [facility] LABORATORY and Staging of Kidney Disease* + [...] tests). Performing Organization Address City/State/Zipcode Phone Number [facility] CLIA: [id number], [address] [place] [address] documented in this encounter Visit Diagnoses Diagnosis Abdominal pain - Primary Abdominal pain, unspecified site Pelvic pain Unspecified symptom associated with female genital organs Essential hypertension Unspecified essential hypertension History of CHF (congestive heart failure) Personal history of other diseases of circulatory system Right lower quadrant abdominal pain Abdominal pain, right lower quadrant Pelvic mass Abdominal or pelvic swelling, mass or lump, unspecified site Left arm swelling Swelling of limb Menopause Symptomatic menopausal or female climacteric states Obesity (BMI 30-39.9) Obesity, unspecified documented in this encounter Administered Medications Medication Order MAR Action Action Date Dose Rate Site acetaminophen (TYLENOL) tablet Given 01/21/2019 8:52 AM CDT 650 mg 650 mg 650 mg, Oral, Q6H ABX, First dose on Tue01/19/19 at 1300, Until Discontinued, Routine Given 01/21/2019 1:19 AM CDT 650 mg Given 01/20/2019 6:50 PM CDT 650 mg alum-mag hydroxide-simeth (MAALOX PLUS / MAG-AL PLUS) 200-200-20 mg/5 mL suspension 30 mL 30 mL, Oral, Q6HPRN, Starting Tue01/19/19 at 1836, Until Discontinued, Routine, Indigestion amitriptyline (ELAVIL) tablet 100 mg Given 01/20/2019 10:54 PM CDT 100 mg 100 mg, Oral, QHS, First dose on Tue01/17/19 at 2100, Until Discontinued, Routine Given 01/19/2019 9:11 PM CDT 100 mg Given 01/18/2019 10:46 PM CDT 100 mg D5W-LR IV infusion 1,000 mL New Bag 01/19/2019 7:00 PM CDT 1,000 mL 75 mL/hr at 75 mL/hr, IV Infusion, CONTINUOUS, Starting Tue01/19/19 at 0830, Until Discontinued, Routine D5W-LR IV infusion 1,000 mL New Bag 01/19/2019 7:07 PM CDT 1,000 mL 100 mL/hr at 100 mL/hr, IV Infusion, CONTINUOUS, Starting Tue01/19/19 at 2000, Until Discontinued, Routine diazePAM (VALIUM) tablet 5 mg Given 01/17/2019 8:35 PM CDT 5 mg 5 mg, Oral, BIDPRN, Starting Tue01/17/19 at 1841, Until Discontinued, Routine, Anxiety docusate (COLACE) capsule 100 mg Given 01/21/2019 8:52 AM CDT 100 mg 100 mg, Oral, DAILY, First dose on Tue01/18/19 at 0900, Until Discontinued, Routine Given 01/20/2019 9:32 AM CDT 100 mg Given 01/19/2019 8:48 AM CDT 100 mg estradiol (ESTRACE) tablet 1 mg Given 01/21/2019 8:52 AM CDT 1 mg 1 mg, Oral, DAILY, First dose on Tue01/20/19 at 1000, Until Discontinued, Routine Given 01/20/2019 10:02 AM CDT 1 mg hydralAZINE (APRESOLINE) injection 10 mg Given 01/18/2019 1:02 PM CDT 10 mg 10 mg, Slow IV Push, Q6HPRN, Starting Tue01/18/19 at 1248, Until Discontinued, Routine, Hypertension, Indication: Hypertensive Emergency HYDROcodone-acetaminophen (NORCO 5) 5-325 mg tablet 1 tablet 1 tablet, Oral, Q6HPRN, Starting Tue01/19/19 at 1147, Until Discontinued, Routine, Pain (scale 4-6) HYDROcodone-acetaminophen (NORCO) 10-325 Given 01/20/2019 3:49 AM CDT 1 tablet mg tablet 1 tablet 1 tablet, Oral, Q6HPRN, Starting 01/19/19 at 1147, Until Discontinued, Routine, Pain (scale 7-10) ibuprofen (IBU) tablet 600 mg Given 01/21/2019 8:52 AM CDT 600 mg 600 mg, Oral, Q6H ABX, First dose on 01/20/19 at 0900, Until Discontinued, Routine Given 01/21/2019 5:55 AM CDT 600 mg Given 01/20/2019 8:59 PM CDT 600 mg lactated ringers IV infusion 1,000 mL New Bag 01/18/2019 6:04 PM CDT at 20 mL/hr, 1,000 mL, IV Infusion, CONTINUOUS, Starting [place] 01/18/19 at 1515, Until Discontinued, Routine, DSU Pre-op New Bag 01/18/2019 2:09 PM CDT New Bag 01/18/2019 2:09 PM CDT 1,000 mL 20 mL/hr levothyroxine (SYNTHROID) tablet 150 mcg Given 01/21/2019 5:55 AM CDT 150 mcg 150 mcg, Oral, QAM-0600, First dose on [place] 01/18/19 at 0600, Until Discontinued, Routine Given 01/20/2019 6:49 AM CDT 150 mcg Given 01/19/2019 6:36 AM CDT 150 mcg metoprolol (LOPRESSOR) injection 5 mg 5 mg, Slow IV Push, Q8HPRN, Starting [facility] 01/18/19 at 1340, Until Discontinued, Routine, elevated BP metoprolol tartrate (LOPRESSOR) tablet 25 mg 25 mg, Oral, BID, First dose on 01/21/19 at 2000, Until Discontinued, Routine morpHINE 2 mg/mL LOAD & RESCUE INJECTION SYRG Slow IV Push, Routine morpHINE 30 mg/30 mL (fixed dose) ROCK WOOL APPLICATOR injection naloxone (NARCAN) injection 0.1 mg 0.1 mg, Slow IV Push, SEE-INSTRUCTIONS, Starting [facility] 01/18/19 at 1902, Until Discontinued, Routine ondansetron (ZOFRAN (PF)) injection 4 mg Given 01/19/2019 7:25 PM CDT 4 mg 4 mg, Slow IV Push, Q6HPRN, Starting [facility] 01/17/19 at 2218, Until Discontinued, Routine, Nausea and Vomiting (N/V) Given 01/18/2019 11:49 PM CDT 4 mg Given 01/18/2019 6:16 PM CDT 8 mg rivaroxaban (XARELTO) tablet 10 mg Given 01/21/2019 8:52 AM CDT 10 mg 10 mg, Oral, DAILY, First dose on 01/20/19 at 2145, Until Discontinued, Routine Given 01/20/2019 10:54 PM CDT 10 mg sennosides (SENOKOT) tablet 8.6 mg Given 01/21/2019 8:52 AM CDT 8.6 mg 8.6 mg, Oral, DAILY, First dose on Tue01/19/19 at 0900, Until Discontinued, Routine Given 01/20/2019 9:33 AM CDT 8.6 mg Given 01/19/2019 8:48 AM CDT 8.6 mg zolpidem (AMBIEN) tablet 5 mg Given 01/20/2019 10:55 PM CDT 5 mg 5 mg, Oral, QHSPRN, Starting Tue01/19/19 at 1728, Until Discontinued, Routine, Insomnia Given 01/19/2019 9:11 PM CDT 5 mg Medication Order MAR Action Action Date Dose Rate Site bisacodyl (DULCOLAX) suppository Given 01/20/2019 4:25 PM CDT 10 mg 10 mg 10 mg, Rectal, QHSPRN, 1 dose, Starting 01/20/19 at 1551, Until 01/20/19 at 1625, Routine, Constipation unresolved by oral medications D5W-LR IV infusion 1,000 mL New Bag 01/18/2019 11:33 AM CDT 1,000 mL 125 mL/hr at 125 mL/hr, IV Infusion, CONTINUOUS, Starting [place] 01/18/19 at 1245, Until Tue01/19/19 at 0822, Routine FENTanyl PF (SUBLIMAZE (PF)) injection 50 mcg Given 01/17/2019 4:41 PM CDT 50 mcg, Slow IV Push, ONCE, 1 dose, Tue01/17/19 at 1745, STAT FENTanyl PF (SUBLIMAZE (PF)) injection 50 Given 01/17/2019 5:19 PM CDT 50 mcg mcg 50 mcg, Slow IV Push, ONCE, 1 dose, Tue01/17/19 at 1830, Routine FENTanyl PF (SUBLIMAZE (PF)) injection 50 Given 01/17/2019 6:49 PM CDT 50 mcg mcg 50 mcg, Slow IV Push, ONCE, 1 dose, Tue01/17/19 at 1930, Routine hydralAZINE (APRESOLINE) injection 10 mg Given 01/17/2019 5:24 PM CDT 10 mg 10 mg, Intravenous, ONCE NOW, 1 dose, Tue01/17/19 at 1830, Routine, Indication: Hypertensive Emergency hydralAZINE (APRESOLINE) injection 10 mg Given 01/17/2019 8:24 PM CDT 10 mg 10 mg, Slow IV Push, Q6HPRN, Starting Tue01/17/19 at 1912, Until [place] 01/18/19 at 1248, Routine, Hypertension, Indication: Hypertensive Emergency HYDROmorphone (DILAUDID) injection 1 mg Given 01/18/2019 7:10 PM CDT 0.5 mg 1 mg, Slow IV Push, Q4HPRN, Starting Tue01/17/19 at 2215, Until Tue01/18/19 at 2158, Routine, Pain (scale 7-10), Use approved by (Faculty): ADC PROVIDER Given 01/18/2019 6:50 PM CDT 0.5 mg Given 01/18/2019 5:47 PM CDT 0.5 mg ketorolac (TORADOL) injection 30 mg Given 01/19/2019 9:11 PM CDT 30 mg 30 mg, Slow IV Push, Q6H ABX, 4 doses, First dose on Tue01/19/19 at 0900, Last dose on Tue01/20/19 at 0300, Routine, road crew member approving Restricted medication: KERA ALVAREZ Given 01/19/2019 5:23 PM CDT 30 mg Given 01/19/2019 8:48 AM CDT 30 mg metoprolol succinate XL (TOPROL XL) tablet 25 Given 01/21/2019 11:30 AM CDT 25 mg mg 25 mg, Oral, ONCE, 1 dose, 01/21/19 at 1100, Routine metoprolol tartrate (LOPRESSOR) tablet 12.5 Given 01/21/2019 8:52 AM CDT 12.5 mg mg 12.5 mg, Oral, BID, First dose on Tue01/19/19 at 2000, Until Discontinued, Routine Given 01/20/2019 9:01 PM CDT 12.5 mg Given 01/20/2019 9:33 AM CDT 12.5 mg metoprolol tartrate (LOPRESSOR) tablet 25 mg Given 01/18/2019 10:46 PM CDT 25 mg 25 mg, Oral, BID, First dose on Tue01/18/19 at 1315, Until Discontinued, Routine morpHINE 30 mg/30 mL (fixed dose) ROCK WOOL APPLICATOR New Bag 01/18/2019 11:32 PM CDT 30 mg injection morpHINE injection 2 mg Given 01/17/2019 9:50 PM CDT 2 mg 2 mg, Slow IV Push, Q4HPRN, Starting Tue01/17/19 at 1850, Until Tue01/17/19 at 2218, Routine, Pain (scale 7-10) morpHINE injection 2 mg Given 01/18/2019 11:50 AM CDT 2 mg 2 mg, Slow IV Push, ONCE, 1 dose, [place] 01/18/19 at 1130, Routine ondansetron (ZOFRAN (PF)) injection 4 mg Given 01/17/2019 4:51 PM CDT 4 mg 4 mg, Slow IV Push, ONCE, 1 dose, Tue01/17/19 at 1800, DEONNA ondansetron (ZOFRAN (PF)) injection 4 mg Given 01/17/2019 5:30 PM CDT 4 mg 4 mg, Slow IV Push, ONCE, 1 dose, Tue01/17/19 at 1830, DEONNA ondansetron (ZOFRAN (PF)) injection 4 mg Given 01/17/2019 9:55 PM CDT 4 mg 4 mg, Slow IV Push, ONCE, 1 dose, Tue01/17/19 at 2015, Routine scopolamine transdermal (TRANSDERM-SCOP) Given 01/18/2019 9:47 AM CDT 1.5 mg patch 1.5 mg 1.5 mg, Topical, Administer over 72 Hours, ONCE, 1 dose, [place] 01/18/19 at 0945, Routine, DSU Pre-op verapamil SR (CALAN SR) ER tablet 120 mg Given 01/18/2019 8:53 AM CDT 120 mg 120 mg, Oral, DAILY, 2 doses, First dose on Tue01/18/19 at 0830, Last dose on Tue01/18/19 at 0900, Routine verapamil SR (CALAN SR) ER tablet 120 mg Given 01/19/2019 8:48 AM CDT 120 mg 120 mg, Oral, DAILY, 2 doses, First dose on Tue01/19/19 at 0900, Last dose on 01/20/19 at 0900, Routine verapamil SR (CALAN SR) ER tablet 120 mg Given 01/20/2019 10:02 AM CDT 120 mg 120 mg, Oral, DAILY, 1 dose, First dose on 01/20/19 at 1000, Routine documented in this encounter Insurance Payer Benefit Plan / Subscriber ID Effective Phone Address Type Group Dates MEDICAID MEDICAID PENDING 2019-[address] [place] [address] documented as of this encounter
--- OUTSIDE RECORDS SUMMARY | 2019-05-23 14:57 | XMS REPORT | Summary of Care ---
:1970 Author Organization [facility] - Health Address [address] [place] [address] Care Team Providers Name Role Phone Marti Morocho Primary Care Provider Encounter Details Date Type Department Care Team Description 01/29/2019 Orders Only [facility] Doctor Unassigned, No [address] [facility] Name [address] [address] Allergies Active Allergy Reactions Severity Noted Date Comments Penicillin Unknown - See comments 08/01/2015 documented as of this encounter (statuses as of 01/29/2019) Medications Medication Sig Dispensed Refills Start Date End Date Status metoprolol Take by mouth. 0 Active chatman-hydrochlorothiaz (DUTOPROL) 50-12.5 mg Tb24 metformin ER Take 500 mg by 0 Active (GLUCOPHAGE-XR) 500 mg mouth daily with 24 hr tablet breakfast. NUTRITIONAL Take by mouth. 0 Active SUPPLEMENT/FIBER (FIBRE ORAL) diazePAM 5 mg tablet TAKE [...] Active mg tabletIndications: mouth daily. Pelvic mass aspirin (ASPIRIN LOW Take 81 mg by 0 Active DOSE) 81 mg EC tablet mouth daily. sulfamethoxazole-trimet Bactrim DS 800 mg-160 mg tablet 0 Active hoprim (BACTRIM DS) Take 1 tablet every 12 hours by oral route for 10 days. 800-160 mg per tablet clopidogrel (PLAVIX) 75 Plavix 75 mg tablet 0 Active mg tablet Take 1 tablet every day by oral route for 30 days. vit Take by mouth. 0 Active calc,iron,folic ( VITAMIN ORAL) polyethylene glycol Take 17 g by 510 g 0 01/25/2019 Active (MIRALAX) 17 gram/dose mouth daily. powderIndications: Constipation, unspecified constipation type documented as of this encounter (statuses as of 01/29/2019) Active Problems Problem Noted Date Superficial venous thrombosis of arm, left 01/21/2019 Pelvic mass 01/18/2019 Obesity (BMI 30-39.9) 01/18/2019 Abdominal pain 01/17/2019 Leg pain, left 08/01/2015 documented as of this encounter (statuses as of 01/29/2019) Social History Tobacco Use Types Packs/Day Years [...] Treatment Date Type Specialty Care Team Description 02/26/2019 Office Visit Obstetrics & Gynecology Nan Fuentes MD [address] [place] [address] [place] [address] Health Maintenance Due Date Last Done Comments DTaP,Tdap,and Td Vaccines (1 - 01/29/1988 Tdap) PAP SMEAR 1990 MAMMOGRAM 2009 INFLUENZA VACCINE (#1) 2019 04/25/2017 COLONOSCOPY 2019 Zoster Recombinant Vaccine 2019 (SHINGRIX) (1 of 2) PNEUMOCOCCAL 0-64 YEARS COMBINED Aged Out No longer eligible based on SERIES patient's age to complete this topic documented as of this encounter Procedures Procedure Name Priority Date/Time Associated Diagnosis Comments CONSENT/REFUSAL FOR Routine 01/29/2019 11:22 PM CDT DIAGNOSIS AND TREATMENT documented in this encounter Results Not on filedocumented in this encounter Insurance Payer Benefit Plan / Subscriber ID Effective Phone Address Type Group Dates MEDICAID MEDICAID PENDING 2019-[address] Pending PENDING [place] [address] documented as of this encounter
--- OUTSIDE RECORDS SUMMARY | 2019-05-23 14:57 | XMS REPORT | Summary of Care ---
:1970 Author Organization [facility] Address [address] [place] [address] Care Team Providers Name Role Phone Marti Morocho Primary Care Provider Reason for Referral (DEONNA) Status Reason Specialty Diagnoses / Referred By Referred To Procedures Contact Contact New Request Otolaryngology Diagnoses Tongue mass Inga Valdes, Procedures CONSULT/REFERRAL ENT CHRISTINA [address] [place] [phone] Reason for Visit Reason Comments REFERRAL Encounter Details Date Type Department Care Team Description 01/29/2019 Case Management [facility] Women's Inga Valdes PA-C REFERRAL Healthcare- [address], [facility] [address] [place] [phone] Allergies Active Allergy Reactions Severity Noted [...] Visit Obstetrics & Gynecology Nan Fuentes MD [address] [place] [address] [place] [address] [phone] Health Maintenance Due Date Last Done Comments [...] filedocumented in this encounter Visit Diagnoses Diagnosis Tongue mass - Primary Swelling, mass, or lump in head and neck documented in this encounter Insurance Payer Benefit Plan / Subscriber ID Effective Phone Address Type Group Dates MEDICAID MEDICAID PENDING 2019-[address] Pending [place] [address] documented as of this encounter
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
--- OUTSIDE RECORDS SUMMARY | 2019-05-23 14:57 | XMS REPORT | Summary of Care ---
:1970 Author Organization [facility] Address [address] [place] [address] Care Team Providers Name Role Phone Bailee Marti Primary Care Provider Reason for Visit Reason Comments Appointment Encounter Details Date Type Department Care Team Description 01/25/[address] [facility] Women's Inga Valdes PA-C Appointment Healthcare- [address] [facility], [address] [place] [address] [place] [address] Allergies Active Allergy Reactions Severity [...] Visit Obstetrics & Gynecology Nan Fuentes MD [address] [place] [address] [place] [address] Health Maintenance Due Date Last [...] Address Type Group Dates MEDICAID MEDICAID PENDING 2019-[address] P[place] [address] documented as of this encounter
--- OUTSIDE RECORDS SUMMARY | 2019-05-23 14:58 | XMS REPORT | Summary of Care ---
:1970 Author Organization [facility] Address [address] [place] [address] Care Team Providers Name Role Phone Marti Morocho Primary Care Provider Reason for Visit Reason Comments Error See by PA Encounter Details Date Type Department Care Team Description 01/25/2019 Nurse Visit [facility] Fuentes, Nan Bailey MD [address] [place] [address] [address]. [address] [place] [address] [facility]- [place] Nurse, [facility] ENCOUNTER--DISREGARD [address] [place] [address], (Primary Dx) [address] [place] [address] Allergies Active Allergy Reactions Severity Noted Date Comments Penicillin Unknown - See comments 08/01/2015 documented as of this encounter (statuses as of 02/02/2019) Medications Medication Sig Dispensed Refills Start Date [...] 0 Active tablet by mouth at bedtime. FUROSEMIDE (LASIX Take by 0 01/25/2019 Discontinued ORAL) mouth. SACCHAROMYCES Take by 0 01/25/2019 Discontinued BOULARDII mouth. (PROBIOTIC, S.BOULARDII, ORAL) aspirin E.C. Take 325 mg 0 01/25/2019 Discontinued (ECOTRIN) 325 mg EC by mouth tablet daily. Magnesium Take by 0 01/25/2019 Discontinued (MAGNACAPS) 100 mg mouth. Cap ferrous sulfate Take by 0 02/01/2019 Discontinued (SLOW FE ORAL) mouth. DULCOLAX, BISACODYL, Take by 0 02/01/2019 Discontinued ORAL mouth. acetaminophen 325 mg Take 2 30 tablet 1 01/19/2019 02/01/2019 Discontinued tabletIndications: tablets by Right lower quadrant mouth every 6 abdominal pain, (six) hours Pelvic mass as needed for Pain (scale 1-3) or Pain (scale 4-6). HYDROcodone-acetamin Take 1 tablet 15 tablet 0 01/19/2019 02/01/2019 Discontinued ophen 5-325 mg by mouth tabletIndications: every 6 (six) Right lower quadrant hours as abdominal pain, needed for Pelvic mass Pain (scale 4-6). ibuprofen 600 mg Take 1 tablet 30 tablet 1 01/19/2019 02/01/2019 Discontinued tabletIndications: by mouth Right lower quadrant every 6 (six) abdominal pain, hours as Pelvic mass needed for Pain (scale 1-3) or Pain (scale 4-6). estradiol (ESTRACE) Take 1 tablet 60 tablet 2 01/22/2019 02/01/2019 Discontinued 1 mg by mouth tabletIndications: daily. Pelvic mass rivaroxaban Take 1 tablet 30 tablet 0 01/22/2019 01/25/2019 Discontinued tabletIndications: by mouth Left arm swelling daily. aspirin (ASPIRIN LOW Take 81 mg by 0 02/01/2019 Discontinued DOSE) 81 mg EC mouth daily. tablet documented as of this encounter (statuses as of 02/02/2019) Active Problems Problem Noted Date Female pelvic hematoma 01/30/2019 Partial intestinal obstruction 01/30/2019 Multiple pulmonary nodules determined by computed tomography of lung 2018 Essential hypertension 01/30/2019 Anxiety 01/30/2019 Superficial venous thrombosis of arm, left 01/21/2019 Pelvic mass 01/18/2019 Obesity (BMI 30-39.9) 01/18/2019 Abdominal pain 01/17/2019 Leg pain, left 08/01/2015 documented as of this encounter (statuses as of 02/02/2019) Social History Tobacco Use Types Packs/Day Years [...] Treatment Date Type Specialty Care Team Description 02/12/2019 Office Visit Obstetrics & Gynecology Nan Fuentes MD [address] [place] [address] [place] [address] [phone] 02/26/2019 Office Visit Obstetrics & Gynecology Nan Fuentes MD [address] [place] [address] [place] [address] [phone] Health Maintenance Due Date Last Done Comments [...] Address Type Group Dates MEDICAID MEDICAID PENDING 2019-[address] Pending [place] [address] documented as of this encounter
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
--- OUTSIDE RECORDS SUMMARY | 2019-05-23 14:58 | XMS REPORT | Summary of Care ---
:1970 Author Organization [facility] Address [address] [place] [id number] Care Team Providers Name Role Phone Marti Morocho Primary Care Provider Reason for Referral (Routine) Status Reason Specialty Diagnoses / Referred By Referred To Procedures Contact Contact New Request Diagnoses Generalized abdominal pain Essential hypertension Female pelvic hematoma Superficial venous thrombosis of arm, left Nan Fuentes MD Lam, Vien Cam, MD Procedures Discharge Follow-up: [address] [facility] [address] [facility] [address] VENTURA [facility] [address] [place] [phone] [place] [id number] Phone: Radiology Services (STAT) Status Reason Specialty Diagnoses / Referred By Referred To Procedures Contact Contact New Request Diagnostic Diagnoses Right lower quadrant abdominal pain Pang, Radiology [place] [address] [place] [address] 2.[address] [place] [address] Radiology Services (STAT) Status Reason Specialty Diagnoses / Referred By Referred To Procedures Contact Contact New Request Diagnostic Diagnoses Right lower quadrant abdominal pain Pang, Radiology [place] [address] [place] [address] 2.[address] [place] [address] (Routine) Status Reason Specialty Diagnoses / Referred By Referred To Procedures Contact Contact New Request Diagnostic Diagnoses Partial intestinal obstruction, unspecified cause Pang, Radiology Procedures FL SMALL BOWEL SERIES MD Michell [address] [place] [address] 2.[address] [place] [address] (Routine) Status Reason Specialty Diagnoses / Referred By Referred To Procedures Contact Contact New Request Diagnostic Diagnoses Partial intestinal obstruction, unspecified cause Pang, Radiology Procedures FL SMALL BOWEL SERIES MD Michell [address] [facility] [address] [place] [address] Radiology Services (Routine) Status Reason Specialty Diagnoses / Referred By Referred To Procedures Contact Contact New Request Diagnostic Diagnoses Female pelvic hematoma Fuentes, Nan Cam, Radiology Procedures US PELVIS COMPLETE WITH TRANSVAGINPAUL WHITESIDE [address] [place] [address] [address]. [address]jarano [address] [place] [address] Radiology Services (Routine) Status Reason Specialty Diagnoses / Referred By Referred To Procedures Contact Contact New Request Diagnostic Diagnoses Female pelvic hematoma Fuentes, Nan Cam, Radiology Procedures US PELVIS COMPLETE WITH TRANSVAGINPAUL WHITESIDE [address] [place] [address] [address]. [address] [place] [address] (Routine) Status Reason Specialty Diagnoses / Referred By Referred To Procedures Contact Contact New Request Vascular Procedures Susan Luna, Sonography UNILATERAL VENOUS DUPLEX UPPER BY [address] [facility] [address] [place] [phone] (Routine) Status Reason Specialty Diagnoses / Referred By Referred To Procedures Contact Contact New Request Vascular Procedures Susan Luna, Sonography UNILATERAL VENOUS DUPLEX UPPER BY [address] [facility] [address] [place] [address] Radiology Services (Routine) Status Reason Specialty Diagnoses / Referred By Referred To Procedures Contact Contact New Request Diagnostic Diagnoses Female pelvic hematoma Fuentes, Nan Cam, Radiology Procedures US PELVIS COMPLETE WITH TRANSVAGINPAUL WHITESIDE [address] [place] [address] [address]. [address] [place] [address] Radiology Services (Routine) Status Reason Specialty Diagnoses / Referred By Referred To Procedures Contact Contact New Request Diagnostic Diagnoses Female pelvic hematoma Nan Fuentes, Radiology Procedures US PELVIS COMPLETE WITH TRANSVAGINAL [address] [place] [address] [address]. Bejar[address] [place] [address] MRI/CAT Scan (STAT) Status Reason Specialty Diagnoses / Referred By Referred To Procedures Contact Contact New Request Diagnostic Diagnoses Generalized abdominal pain Essential hypertension Surinder Allen, Radiology Procedures CT ABDOMEN PELVIS W CONTRAST [address] [address] MRI/CAT Scan (STAT) Status Reason Specialty Diagnoses / Referred By Referred To Procedures Contact Contact New Request Diagnostic Diagnoses Generalized abdominal pain Essential hypertension Surinder Allen, Radiology Procedures CT ABDOMEN PELVIS W CONTRAST [address] [address] Reason for Visit Reason Comments Abdominal Pain Auth/Cert Status Reason Specialty Diagnoses / Referred By Referred To Procedures Contact Contact [facility] [address] [place] [address] [place] [address] Encounter Details Date Type Department Care Team Description 01/29/2019 - Emergency ADC Labor and Delivery Surinder Allen MD [address] [phone] Abdominal pain 02/01/2019 Unit Nan Fuentes MD [address] [place] [address] [address]. [address]jar[address] [place], [place] [phone] [address] [place] [address] Dr [address] [place] [address] Allergies Active Allergy Reactions Severity Noted Date Comments Penicillin Unknown - See comments 08/01/2015 documented as of this encounter (statuses as of 02/01/2019) Medications Medication Sig Dispensed Refills Start Date [...] 10 days. DS) 800-160 mg per tablet pantoprazole 40 mg Take 1 tablet 30 tablet 3 02/01/2019 Active EC by mouth tabletIndications: daily. Generalized abdominal pain, Essential hypertension, Female pelvic hematoma, Superficial venous thrombosis of arm, left ferrous sulfate Take by 0 02/01/2019 Discontinued [...] as of this encounter (statuses as of 02/01/2019) Active Problems Problem Noted Date Female pelvic hematoma 01/30/2019 Partial intestinal obstruction 01/30/2019 Multiple pulmonary nodules determined by computed tomography of lung 2018 Essential hypertension 01/30/2019 Anxiety 01/30/2019 Superficial venous thrombosis of arm, left 01/21/2019 Pelvic mass 01/18/2019 Obesity (BMI 30-39.9) 01/18/2019 Abdominal pain 01/17/2019 Leg pain, left 08/01/2015 documented as of this encounter (statuses as of 02/01/2019) Social History Tobacco Use Types Packs/Day Years [...] Sign Reading Time Taken Comments Blood Pressure 163/99 02/01/2019 11:40 AM CDT Pulse 74 02/01/2019 11:40 AM CDT Temperature 36.8 C (98.3 F) 02/01/2019 11:40 AM CDT Respiratory Rate 18 02/01/2019 11:40 AM CDT Oxygen Saturation 100% 02/01/2019 11:40 AM CDT Inhaled Oxygen Concentration - - Weight 74.4 kg (164 lb) 01/29/2019 11:39 PM CDT Height 162.6 cm (5' 4") 01/29/2019 11:39 PM CDT Body Mass Index 28.15 01/29/2019 11:39 PM CDT documented in this encounter Discharge Instructions AttachmentsThe following attachments cannot be sent through Care Everywhere.Heart Disease, Women and: Understanding the Risks (Mauritanian)Gastric Ulcers, Understanding (Mauritanian)Pantoprazole tablets (Mauritanian)Diet, [place] (Adult ) (Mauritanian)documented in this encounter Progress Notes Susan Luna MD - 02/01/2019 7:49 AM CDT [facility] Cardiology progress note Date of Service: 02/01/2019 Deena Douglass is a 49 years old female hospitalized for pelvic hematoma. Left arm US showed superficial thrombosis. No DVT. PHYSICAL EXAM Vitals: 01/31/19 2015 02/01/19 0030 02/01/19 0400 02/01/19 0725 BP: (!) 152/87 (!) 151/93 (!) 164/97 (!) 153/93 BP Location: Right arm Patient Position: Supine Pulse: 81 79 79 Resp: 18 Temp: 36.8 C (98.2 F) 36.3 C (97.3 F) 36.4 C (97.5 F) TempSrc: Oral Oral Oral SpO2: 100% 97% 98% Weight: Height: Constitutional: alert and oriented x 3 (person, place and date/time); no apparent distress ENT: normocephalic atraumatic, supple, no lymphadenopathy, no bruits, no JVD Lungs: clear to auscultation bilaterally Cardiovascular: S1, S2 normal, regular; no murmurs, rubs or gallops GI: soft; non-tender; non-distended; normoactive bowel sounds : not examined Musculoskeletal: Extremities: a palpable cord along the medial side of the left upper arm Skin: no rashes Neuro: no focal deficits Medications: I have reviewed the patient's medications; see Medication Reconciliation. Labs: I have reviewed the patient's labs. ASSESSMENT AND PLAN Principal Problem: Abdominal pain Active Problems: Obesity (BMI 30-39.9) Superficial venous thrombosis of arm, left Female pelvic hematoma Partial intestinal obstruction Multiple pulmonary nodules determined by computed tomography of lung Essential hypertension Anxiety Superfical venous thrombosis of the left arm--Acute presentation including redness, swelling and pain have resolved. No DVT. No need for antiplatelet or anticoagulation. Advised to watch symptoms. Callif worsens. HTN--Still elevated probably due to pelvic pain. Recommend to increase Calan to home dose of 180 mg.She stated that she does not take Dutoprol anymore. Will follow up as needed. Susan Luna MD, FACC, FACP, MICHELLE White Work Cleaner, Division of Cardiology [facility] Michell Hilton MD - 01/31/2019 1:43 PM CDT GENERAL SURGERY DAILY PROGRESS NOTE Patient Name: Deena Douglass Date of : 1970 Date: 01/31/2019 24 Hour Events: The patient is doing well today. She states she has less abdominal pain. She is passing flatus but has not had a BM today. She has finished the oral water soluble contrast and is not experiencing any nausea. Physical Exam: Vital Signs Temp: [36.7 C (98 F)-36.9 C (98.5 F)] Heart Rate (monitor): [88] Pulse: [80-92] Resp: [17-18] BP: (141-158)/(90-93) MAP (mmHg): [103-107] Intake/Output Intake/Output Summary (Last 24 hours) at 01/31/2019 1343 Last data filed at 01/31/2019 0816 Gross per 24 hour Intake 1125 ml Output 2000 ml Net -875 ml Constitutional: Awake, alert, oriented, in no acute distress Head: Normocephalic, atraumatic Eyes: Extraocular movements grossly intact, pupils equal and reactive to light and accomodation, anicteric sclerae Ears: Normal external exam Nose: Normal external exam Mouth: Moist mucous membranes Neck: Supple, no jugular venous distention Cardiovascular: Regular rate and rhythm without murmurs, gallops, or rubs Respiratory: Symmetry of chest wall motion, clear to ausculation bilaterally, no respiratory distress GI: Normoactive bowel sounds, soft, nontender, non-distended Extremities: No clubbing, cyanosis, or edema Musculoskeletal: Normal tone and strength, normal range of motion Vascular: Radial and dorsalis pedis pulses palpable bilaterally Neurologic: CN II through XII grossly intact, no focal deficits Skin: Warm and dry, capillary refill <2 seconds, no jaundice, rashes, lesions , or erythema Psychiatric: Appropriate mood and affect, no obvious deficits of insight or judgment Labs: No new labs today Medications: Scheduled Medications acetaminophen ADULT 1,000 mg Q6H ABX amitriptyline 100 mg QHS ceFAZolin (ANCEF) IV piggyback 1,000 mg Q8H ABX levothyroxine 150 mcg QAM-0600 metoprolol tartrate 12.5 mg BID pantoprazole (PROTONIX) IV Piggyback 40 mg Q24H verapamil SR 120 mg DAILY IV Medications/Drips D5W-LR Last Rate: 1,000 mL (01/31/19 0958) PRN Medications diazePAM 5 mg BIDPRN hydralAZINE 5 mg Q6HPRN Assessment: Deena Douglass is a 49 year old female s/p right salpingoophorectomy and enterolysis on 01/18/2019 admitted with partial SBO and right pelvic hematoma. The patient is clinically improving with nonoperative management. Repeat pelvic U/S demonstrated unchanged pelvic hematoma. Patient Active Problem List Diagnosis Leg pain, left Abdominal pain Pelvic mass Obesity (BMI 30-39.9) Superficial venous thrombosis of arm, left Female pelvic hematoma Partial intestinal obstruction Multiple pulmonary nodules determined by computed tomography of lung Essential hypertension Anxiety Plan: 1. Obtain abdominal X-ray this afternoon and tomorrow morning 2. Continue NPO 3. Continue Protonix for GI prophylaxis and treatment of possible marginal ulcer , continue to hold NSAIDS, may consider EGD at a later time 4. Management of nonexpanding hematoma per Dr. Alfredo Pang M.D. 01/31/2019 13:43 1: 50 PM Nan Amado MD - 01/31/2019 8:08 AM CDT PROGRESS NOTE Subjective: Patient is a 49 year old female without complaints. Doing well overnight. Pain controlled and passed flatus. Patient reported left tooth pain. Objective: Vital Signs: Patient Vitals for the past 24 hrs: BP Pulse Resp Temp Temp src SpO2 01/31/19 0445 (!) 148/93 89 17 36.7 C (98 F) TEMPORAL ART 98 % 01/30/19 1945 (!) 149/91 80 17 36.9 C (98.5 F) TEMPORAL ART 99 % 01/30/19 1625 18 36.9 C (98.4 F) Oral 100 % 01/30/19 1140 (!) 148/86 85 18 36.8 C (98.3 F) Oral 100 % Physical Exam Constitutional: alert, no apparent distress, appearing age appropriate, anxious HEENT: Mouth lesion has improved, smaller since last seen on . The lesion on the right upper lip resolved. Respiratory: good inspiratory effort to inspections, lungs clear to auscultation Cardiovascular: RRR Gastrointestinal: Soft, distension is less compared to yesterday, active BS in all four quadrants, no tenderness to palpation in all four quadrants, no rebound or guarding Incision/Wound: Pfannenstiel incision and horizontal infraumbilical incision clean, dry, intact andno erythema,induration, drainage Skin: Cellulitis of left arm improved tremendously, almost resolved. Feels a palpable cord in the left upper extremity (where the superficial venous thrombosis) Extremities: No edema Labs: CBC BMP WBC (10*3/L) Date Value 01/30/2019 15.94 (H) NA (mmol/L) Date Value 01/30/2019 140 RBC (10*6/L) Date Value 01/30/2019 3.51 (L) K (mmol/L) Date Value 01/30/2019 4.1 PLT (10*3/L) Date Value 01/30/2019 783 (H) CALCIUM (mg/dL) Date Value 01/30/2019 9.4 HGB (g/dL) Date Value 01/30/2019 10.9 (L) CL (mmol/L) Date Value 01/30/2019 111 (H) HCT (%) Date Value 01/30/2019 31.9 (L) BUN (mg/dL) Date Value 01/30/2019 13 CREATININE (mg/dL) Date Value 01/30/2019 0.94 Medications: Current Facility-Administered Medications Medication Dose Route Frequency Last Rate Last Dose amitriptyline (ELAVIL) tablet 100 mg 100 mg Oral QHS 100 mg at 01/30/195 ceFAZolin (ANCEF) 1,000 mg in NaCl 0.9% (NS) 50 mL MINI-BAG 1,000 mg IV Piggyback Q8H ABX 1,000 mg at 01/31/19 0555 D5W-LR IV infusion 1,000 mL 1,000 mL IV Infusion CONTINUOUS 125 mL/hr at 1558 1,000 mLat 01/30/19 1558 diazePAM (VALIUM) tablet 5 mg 5 mg Oral BIDPRN 5 mg at 01/30/19 0929 hydralAZINE (APRESOLINE) injection 5 mg 5 mg Intravenous Q6HPRN levothyroxine (SYNTHROID) tablet 150 mcg 150 mcg Oral QAM-0600 150 mcg at 01/30/19 0929 metoprolol tartrate (LOPRESSOR) tablet 12.5 mg 12.5 mg Oral BID 12.5 mg at 01/30/19 1946 pantoprazole (PROTONIX) 40 mg in NaCl 0.9% (NS) 100 mL MINI-BAG 40 mg IV Piggyback Q24H 40 mgat 01/30/19 1831 verapamil SR (CALAN SR) ER tablet 120 mg 120 mg Oral DAILY 120 mg at 0928 Assessment/Plan: Deena Douglass is a 49 year old female s/p ex-lap with removal of the left pelvic sidewall mass and lysis of bowel adhesions on 01/18/19, POD#13, presented for generalized abdominal pain, HD#2 Abdominal pain - No acute abdomen on exam - CT scan is suggestive of "at least a partial obstruction of the afferent loop ". - NPO and IV hydrate. - appreciates general surgery input. IV protonix ordered. Plan for small bowel series today. - Continue IV Tylenol for pain control Pelvic hematoma - 5.7 x 4.7 [address], located in the RLQ - 7.7 x 8.2 x 6.7 cm size acute/subacute pelvic hematoma, most of it located in the right side of the pelvis, small hematoma is seen in the midline extending slightly to the left side of the pelvis. - Plavix, Aspirin 81 mg, and NSAIDs held - will continue to monitor. Will obtain pelvic USG to assess stability Left cephalic vein venous thrombosis with cellulitis - improved significantly - on Plavix/aspirin and Bactrim outpatient, last doses were Tuesday night and Tuesday morning respectively - on IV abx. - Appreciates cardiology inputs: Plan for repeat ultrasound of the arm to assess stability HTN - BPs 180s/110s in ER, s/p hydralazine 10 mg once - currently BP mild range - on Verapamil 120 mg XR and Metoprolol 12.5 mg BID. Hydralazine prn Anxiety - Diazepam prn Multiple lung nodules - noted on CT - Patient reports that she has known multiple lung nodules for the past 5-6 years and it remains stable. Saw pulm in [place] in the past but never had a biopy - encourage Patient to complete her work-up outpatient unless clinically indicated otherwise Nan Fuentes MD 01/31/2019 8:20 AM Nan Amado MD - 01/30/2019 4:32 PM CDTLate entry Spoke with Dr. Hand regarding consult and Dr. Hand will have Dr. Luna come evaluate the patient. Spoke with Dr. Pang, who will see the patient after her surgery Pelvic USG on 01/30/19 HISTORY: Evaluate pelvic hematoma. TECHNIQUE: Both transabdominal and transvaginal pelvic ultrasound studies were completed by the technologist. FINDINGS: Comparison is made with CT scan of abdomen and pelvis done earlier this morning. An irregular shaped abnormalities detected, approximately 7.7 x 8.2 x 6.7 cm size in the right side as well as in the midline extending slightly to the left of the midline in the pelvis, consistent with pelvic hematoma containing both liquid blood as well as clotted blood material. There is no free fluid in the pelvis. Uterus and ovaries have been remote. Urinary bladder appears normal. Next CONCLUSIONS: 7.7 x 8.2 x 6.7 cm size acute/subacute pelvic hematoma, most of it located in the right side of the pelvis, small hematoma is seen in the midline extending slightly to the left side of the pelvis. Regarding pelvic hematoma, will continue to observe at this time. Will repeat USG tomorrow. Plan discussed with patient, who agrees with plan of care. Continue to hold Plavix at this time, agreed byDr. Luna. Nan Fuentes MD 01/30/2019 6:50 PM documented in this encounter Plan of Treatment Date Type Specialty Care Team Description 02/26/2019 Office Visit Obstetrics & Gynecology Nan Fuentes MD [address] [place] [address] [place] [address] [phone] Health Maintenance Due Date Last Done Comments [...] Procedure Name Priority Date/Time Associated Diagnosis Comments XR KUB STAT 02/01/2019 8:49 Right lower quadrant Results for this AM CDT abdominal pain procedure are in the results section. FL SMALL BOWEL SERIES Routine 01/31/2019 7:41 Partial intestinal Results for this PM CDT obstruction, procedure are in unspecified cause the results section. US PELVIS COMPLETE Routine 01/31/2019 9:30 Female pelvic Results for this WITH TRANSVAGINAL AM CDT hematoma procedure are in the results section. UNILATERAL VENOUS Routine 01/31/2019 9:02 DUPLEX UPPER BY AM CDT VASCULAR LAB US PELVIS COMPLETE Routine 01/30/2019 9:26 Female pelvic Results for this WITH TRANSVAGINAL AM CDT hematoma procedure are in the results section. CT ABDOMEN PELVIS W STAT 01/30/2019 2:31 Generalized Results for this CONTRAST AM CDT abdominal pain procedure are in Essential the results hypertension section. URINALYSIS STAT 01/30/2019 2:21 Generalized Results for this AM CDT abdominal pain procedure are in Essential the results hypertension section. BASIC METABOLIC PANEL STAT 01/30/2019 1:36 Generalized Results for this (NA, K, CL, CO2, AM CDT abdominal pain procedure are in GLUCOSE, BUN, Essential the results CREATININE, CA) hypertension section. LIPASE STAT 01/30/2019 1:36 Generalized Results for this AM CDT abdominal pain procedure are in Essential the results hypertension section. CBC WITH DIFFERENTIAL STAT 01/30/2019 12:33 Generalized Results for this AM CDT abdominal pain procedure are in Essential the results hypertension section. CBC WITH DIFF STAT 01/30/2019 12:33 Generalized Results for this AM CDT abdominal pain procedure are in Essential the results hypertension section. documented in this encounter Results XR KUB (02/01/2019 8:49 AM CDT) Specimen Narrative Performed At HISTORY: Small bowel obstruction. PACS/VR/DOSE FINDINGS: 2 abdominal images are obtained with portable technique which showed orally administered water-soluble contrast medium in the large bowel. Surgical clips and sutures are seen in the epigastric region. Some of the small bowel loops remain mildly gas distended. CONCLUSIONS: Contrast medium is seen in the large bowel at this time. Procedure Note [facility], Radiant Results Inft User - 02/01/2019 9:02 AM CDT HISTORY: Small bowel obstruction. FINDINGS: 2 abdominal images are obtained with portable technique which showed orally administered water-soluble contrast medium in the large bowel. Surgical clips and sutures are seen in the epigastric region. Some of the small bowel loops remain mildly gas distended. CONCLUSIONS: Contrast medium is seen in the large bowel at this time. Performing Organization Address City/State/Zipcode Phone Number PACS/VR/DOSE FL SMALL BOWEL SERIES (01/31/2019 7:41 PM CDT) Specimen Impressions Performed At PACS/VR/DOSE Slow transit to the colon. The small bowel is not obstructed. Narrative Performed At * * * * * * * * ORIGINAL REPORT * * * * * * * * PACS/VR/DOSE SMALL BOWEL SERIES HISTORY: SBO Please give concentrated water soluble oral contrast, patient has had prior gastric bypass and cannot tolerate a large volume of fluid, maximum amount of fluid 300 mL total, call Dr. Pang for questions at [phone]. COMPARISON: None. PROCEDURE: Sequential images were obtained for up to 8 hours. FINDINGS: Abdomen x-ray obtained at 4 hours shows contrast in jejunal and ileal loops with diameter of less than 4 cm. There is no bowel obstruction pattern. A small amount of contrast seems to be in the cecum. Images obtained at 4 hour with portable supine technique show contrast in the colon. There is no bowel obstruction pattern. Procedure Note [facility], Radiant Results Inft User - 01/31/2019 8:19 PM CDT * * * * * * * * ORIGINAL REPORT * * * * * * * * SMALL BOWEL SERIES HISTORY: SBO Please give concentrated water soluble oral contrast, patient has had prior gastric bypass and cannot tolerate a large volume of fluid, maximum amount of fluid 300 mL total, call Dr. Pang for questions at [phone]. COMPARISON: None. PROCEDURE: Sequential images were obtained for up to 8 hours. FINDINGS: Abdomen x-ray obtained at 4 hours shows contrast in jejunal and ileal loops with diameter of less than 4 cm. There is no bowel obstruction pattern. A small amount of contrast seems to be in the cecum. Images obtained at 4 hour with portable supine technique show contrast in the colon. There is no bowel obstruction pattern. IMPRESSION Slow transit to the colon. The small bowel is not obstructed. Performing Organization Address [facility] Phone Number PACS/VR/DOSE US PELVIS COMPLETE WITH TRANSVAGINAL (01/31/2019 9:30 AM CDT) Specimen Narrative Performed At HISTORY: Assess pelvic hematoma stability. PACS/VR/DOSE TECHNIQUE: Both transabdominal and transvaginal pelvic ultrasound studies were completed by the technologist. FINDINGS: Irregular shaped multilocular acute/subacute pelvic hematoma again noted, measuring approximately 8.2 x 6.8 x 6.9 cm in size, essentially unchanged when compared with yesterday's study. Procedure Note [facility], Radiant Results Inft User - 01/31/2019 9:56 AM CDT HISTORY: Assess pelvic hematoma stability. TECHNIQUE: Both transabdominal and transvaginal pelvic ultrasound studies were completed by the technologist. FINDINGS: Irregular shaped multilocular acute/subacute pelvic hematoma again noted, measuring approximately 8.2 x 6.8 x 6.9 cm in size, essentially unchanged when compared with yesterday's study. Performing Organization Address [facility] Phone Number PACS/VR/DOSE US PELVIS COMPLETE WITH TRANSVAGINAL (01/30/2019 9:26 AM CDT) Specimen Narrative Performed At HISTORY: Evaluate pelvic hematoma. PACS/VR/DOSE TECHNIQUE: Both transabdominal and transvaginal pelvic ultrasound studies were completed by the technologist. FINDINGS: Comparison is made with CT scan of abdomen and pelvis done earlier this morning. An irregular shaped abnormalities detected, approximately 7.7 x 8.2 x 6.7 cm size in the right side as well as in the midline extending slightly to the left of the midline in the pelvis, consistent with pelvic hematoma containing both liquid blood as well as clotted blood material. There is no free fluid in the pelvis. Uterus and ovaries have been remote. Urinary bladder appears normal. Next CONCLUSIONS: 7.7 x 8.2 x 6.7 cm size acute/subacute pelvic hematoma, most of it located in the right side of the pelvis, small hematoma is seen in the midline extending slightly to the left side of the pelvis. Procedure Note [facility], Radiant Results Inft User - 01/30/2019 9:29 AM CDT HISTORY: Evaluate pelvic hematoma. TECHNIQUE: Both transabdominal and transvaginal pelvic ultrasound studies were completed by the technologist. FINDINGS: Comparison is made with CT scan of abdomen and pelvis done earlier this morning. An irregular shaped abnormalities detected, approximately 7.7 x 8.2 x 6.7 cm size in the right side as well as in the midline extending slightly to the left of the midline in the pelvis, consistent with pelvic hematoma containing both liquid blood as well as clotted blood material. There is no free fluid in the pelvis. Uterus and ovaries have been remote. Urinary bladder appears normal. Next CONCLUSIONS: 7.7 x 8.2 x 6.7 cm size acute/subacute pelvic hematoma, most of it located in the right side of the pelvis, small hematoma is seen in the midline extending slightly to the left side of the pelvis. Performing Organization Address City/State/Zipcode Phone Number PACS/VR/DOSE CT ABDOMEN PELVIS W CONTRAST (01/30/2019 2:31 AM CDT) Specimen Impressions Performed At PACS/VR/DOSE Status post gastric sleeve procedure with gastric bypass. There are prominent inflammatory changes adjacent to the gastroenterostomy, with a possible marginal erosion/ulcer measuring 21 mm. There is no associated perforation at this point. Dilatation of the afferent loop to the level of the enteroenteric anastomosis, suggestive of at least partial obstruction of the afferent loop. Status post hysterectomy. There is apparent focal hematoma in the right lower quadrant, measuring 5.7 x 4.7 x 7.3 cm. Correlation with patient history is recommended. Innumerable small pulmonary nodules in the lung bases, concerning for metastatic disease. RL: [id number] AF: [id number] Narrative Performed At Indication: Acute abdominal pain and distention PACS/VR/DOSE COMPARISON: None available TECHNIQUE: Axial images of the abdomen and pelvis are performed following administration of intravenous contrast material. Images were reformatted in the coronal and sagittal plane. CT scan was performed according to ALARA (as low as reasonably achievable) policy. FINDINGS: There are numerable small pulmonary nodules in the lung bases, measuring up to 8 mm.. The liver, gallbladder, spleen, adrenal glands and pancreas are within normal limits. The kidneys are normal in appearance bilaterally without hydronephrosis. No abdominal aortic aneurysm or dissection is appreciated. The patient is status post gastric sleeve procedure and gastric bypass. There are prominent inflammatory changes adjacent to the gastroenterostomy. There is a questionable marginal erosion/ulcer, measuring 21 mm (series 2, image 44) without associated perforation. There is dilatation of the afferent loop to the level of the enteroenteric anastomosis. The patient is status post hysterectomy. There is focal hemorrhagic fluid in the right lower quadrant, measuring 5.7 x 4.7 cm (series 2, image 132). There is no widespread diverticulosis or acute diverticulitis. The appendix is identified and within normal limits. Bone windows through the abdomen and pelvis demonstrate no osseous destructive lesion. Procedure Note [facility], Radiant Results Inft User - 01/30/2019 2:53 AM CDT Indication: Acute abdominal pain and distention COMPARISON: None available TECHNIQUE: Axial images of the abdomen and pelvis are performed following administration of intravenous contrast material. Images were reformatted in the coronal and sagittal plane. CT scan was performed according to ALARA (as low as reasonably achievable) policy. FINDINGS: There are numerable small pulmonary nodules in the lung bases, measuring up to 8 mm.. The liver, gallbladder, spleen, adrenal glands and pancreas are within normal limits. The kidneys are normal in appearance bilaterally without hydronephrosis. No abdominal aortic aneurysm or dissection is appreciated. The patient is status post gastric sleeve procedure and gastric bypass. There are prominent inflammatory changes adjacent to the gastroenterostomy. There is a questionable marginal erosion/ulcer, measuring 21 mm (series 2, image 44) without associated perforation. There is dilatation of the afferent loop to the level of the enteroenteric anastomosis. The patient is status post hysterectomy. There is focal hemorrhagic fluid in the right lower quadrant, measuring 5.7 x 4.7 cm (series 2, image 132). There is no widespread diverticulosis or acute diverticulitis. The appendix is identified and within normal limits. Bone windows through the abdomen and pelvis demonstrate no osseous destructive lesion. IMPRESSION Status post gastric sleeve procedure with gastric bypass. There are prominent inflammatory changes adjacent to the gastroenterostomy, with a possible marginal erosion/ulcer measuring 21 mm. There is no associated perforation at this point. Dilatation of the afferent loop to the level of the enteroenteric anastomosis, suggestive of at least partial obstruction of the afferent loop. Status post hysterectomy. There is apparent focal hematoma in the right lower quadrant, measuring 5.7 x 4.7 x 7.3 cm. Correlation with patient history is recommended. Innumerable small pulmonary nodules in the lung bases, concerning for metastatic disease. RL: [id number] AFC: [id number] Performing Organization Address [facility] Phone Number PACS/VR/DOSE URINALYSIS (01/30/2019 2:21 AM CDT) APPEARANCE Hazy (A) Clear [facility] COLOR Yellow Yellow [facility] PH 6.0 4.8 - 8.0 [facility] SP GRAVITY 1.027 1.003 - 1.030 [facility] GLU U QUAL Normal Normal [facility] BLOOD Negative Negative [facility] KETONES 5 mg/dL (A) Negative [facility] PROTEIN Negative Negative [facility] UROBILIN 4.0 mg/dL (A) Normal [facility] BILIRUBIN Negative Negative [facility] NITRITE Negative Negative [facility] LEUK ANNIE Negative Negative [facility] RBC/HPF 3 0 - 3 HPF [facility] WBC/HPF 7 (H) 0 - 5 HPF [facility] BACTERIA Few (A) Negative [facility] MUCOUS Slight (A) Negative LPF [facility] SQ EPITH 2 HPF [facility] UR AC STEVE 5 (H) <=1 HPF [facility] HYAL CAST 1 <=2 LPF [facility] Specimen Urine - URINE, CLEAN CATCH Performing Organization Address [facility] [employer] Phone Number [facility] CLIA: [id number], [address] [place] [address] LIPASE (01/30/2019 1:36 AM CDT) LIPASE 100 0 - 220 U/L [facility] Specimen Blood - VENOUS Performing Organization Address [facility] Services[facility] Phone Number [facility] CLIA: [id number], [address] [place] [address] BASIC METABOLIC PANEL (NA, K, CL, CO2, GLUCOSE, BUN, CREATININE, CA) (2018 1:36 AM CDT) NA 140 135 - 145 [facility] mmol/L [facility] K 4.1 3.5 - 5.0 [facility] mmol/L [facility] CL 111 (H) 98 - 108 mmol/L [facility] CO2 TOTAL 21 (L) 23 - 31 mmol/L [facility] AGAP 8 2 - 16 [facility] BUN 13 7 - 23 mg/dL [facility] GLUCOSE 121 (H) 70 - 110 mg/dL [facility] CREATININE 0.94 0.50 - 1.04 [facility] mg/dL [facility] CALCIUM 9.4 8.6 - 10.6 [facility] mg/dL [facility] eGFR Calculation 63.0 mL/min/1.73m2 [facility] ([facility] Lebanese) eGFR Calculation 76.4 mL/min/1.73m2 [facility] ([facility]) [facility] Specimen Blood - VENOUS Narrative Performed At Association of Glomerular Filtration Rate (GFR) [facility] and Staging of Kidney [...] tests). Performing Organization Address City/State/Zipcode Phone Number [facility] CLIA: [id number], [address] [place] [address] CBC WITH DIFFERENTIAL (01/30/2019 12:33 AM CDT) WBC 15.94 (H) 4.30 - 11.10 [facility] 10*3/L HOSPITAL LAB[facility]ORY RBC 3.51 (L) 3.93 - 5.25 [facility] 10*6/L [facility]ITAL [facility] HGB 10.9 (L) 11.6 - 15.0 [facility] g/dL [facility] HCT 31.9 (L) 35.7 - 45.2 % [facility] MCV 90.9 80.6 - 95.5 fL [facility] MCH 31.1 25.9 - 32.8 pg [facility] MCHC 34.2 31.6 - 35.1 [facility] g/dL [facility] RDW-SD 43.9 39.0 - 49.9 fL [facility] RDW-CV 13.6 12.0 - 15.5 % [facility] PLT 783 (H) 166 - 358 [facility] 10*3/L [facility] MPV 9.3 (L) 9.5 - 12.9 fL [facility] NRBC/100 WBC 0.0 0.0 - 10.0 /100 [facility] WBCs [facility] NRBC x10^3 <0.01 10*3/L [facility] GRAN MAT (NEUT) % 83.3 % [facility] IMM GRAN % 0.50 % [facility] LYMPH % 11.0 % [facility] MONO % 4.0 % [facility] EOS % 0.9 % [facility] BASO % 0.3 % [facility] GRAN MAT x10^3(ANC) 13.27 (H) 1.88 - 7.09 [facility] 10*3/uL HOSPITAL LAB[facility] IMM GRAN x10^3 0.08 (H) 0.00 - 0.06 [facility] 10*3/uL [facility]ITAL [facility] LYMPH x10^3 1.76 1.32 - 3.29 [facility] 10*3/uL [facility]ITAL [facility] MONO x10^3 0.64 0.33 - 0.92 [facility] 10*3/uL [facility] EOS x10^3 0.15 0.03 - 0.39 [facility] 10*3/uL [facility] BASO x10^3 0.04 0.01 - 0.07 [facility] 10*3/uL [facility] Specimen Blood - VENOUS Performing Organization Address City/State/Zipcode Phone Number [facility] CLIA: [id number], [address] [place] [address] documented in this encounter Visit Diagnoses Diagnosis Generalized abdominal pain - Primary Abdominal pain, generalized Essential hypertension Unspecified essential hypertension Status post laparoscopy Other postprocedural status Female pelvic hematoma Other specified disorders of female genital organs Partial intestinal obstruction, unspecified cause Superficial venous thrombosis of arm, left Right lower quadrant abdominal pain Abdominal pain, right lower quadrant documented in this encounter Administered Medications Medication Order MAR Action Action Date Dose Rate Site alum-mag hydroxide-simeth (MAALOX Given 02/01/2019 2:54 PM CDT 30 mL PLUS / MAG-AL PLUS) 200-200-20 mg/5 mL suspension 30 mL 30 mL, Oral, Q6HPRN, Starting Vianey 02/01/19 at 1439, Until Discontinued, Routine, Indigestion amitriptyline (ELAVIL) tablet 100 mg Given 01/31/2019 9:02 PM CDT 100 mg 100 mg, Oral, QHS, First dose on Tue01/30/19 at 2145, Until Discontinued, Routine Given 01/30/2019 10:05 PM CDT 100 mg ceFAZolin (ANCEF) 1,000 mg in NaCl 0.9% Given 02/01/2019 2:56 PM CDT 1,000 mg (NS) 50 mL MINI-BAG 1,000 mg, IV Piggyback, Q8H ABX, First dose on Tue01/30/19 at 0645, Until Discontinued, 50 mL, Reason for Anti-Infective: Documented Infection, Documented Infection Site: Skin / Soft Tissue, Duration of Therapy: 7 days Given 02/01/2019 6:33 AM CDT 1,000 mg Given 01/31/2019 10:54 PM CDT 1,000 mg D5W-LR IV infusion 1,000 mL New Bag 02/01/2019 2:58 PM CDT 1,000 mL 125 mL/hr at 125 mL/hr, IV Infusion, CONTINUOUS, Starting Tue01/30/19 at 0445, Until Discontinued, Routine New Bag 02/01/2019 5:35 AM CDT 1,000 mL 125 mL/hr New Bag 01/31/2019 6:36 PM CDT 1,000 mL 125 mL/hr diazePAM (VALIUM) tablet 5 mg Given 01/31/2019 9:02 PM CDT 5 mg 5 mg, Oral, BIDPRN, Starting Tue01/30/19 at 0427, Until Discontinued, Routine, Anxiety Given 01/30/2019 9:29 AM CDT 5 mg Given 01/30/2019 6:12 AM CDT 5 mg hydralAZINE (APRESOLINE) injection 5 mg 5 mg, Intravenous, Q6HPRN, Starting Tue01/30/19 at 0510, Until Discontinued, Routine, Hypertensive emergency, BPs > 170/110, Indication: Hypertensive Emergency levothyroxine (SYNTHROID) tablet 150 mcg Given 01/31/2019 8:13 AM CDT 150 mcg 150 mcg, Oral, QAM-0600, First dose on Tue01/30/19 at 0600, Until Discontinued, Routine Given 01/30/2019 9:29 AM CDT 150 mcg lidocaine 2% viscous (LIDOCAINE VISCOUS) 2 % Given 01/31/2019 5:33 PM CDT 15 mL solution 15 mL 15 mL, Oral, Q4HPRN, Starting Tue01/31/19 at 1657, Until Discontinued, Routine, Oral mucosal pain metoprolol tartrate (LOPRESSOR) tablet 12.5 Given 02/01/2019 9:01 AM CDT 12.5 mg mg 12.5 mg, Oral, BID, First dose on Tue01/30/19 at 0800, Until Discontinued, Routine Given 01/31/2019 9:03 PM CDT 12.5 mg Given 01/31/2019 8:12 AM CDT 12.5 mg pantoprazole (PROTONIX) 40 mg in NaCl 0.9% Given 01/31/2019 8:11 PM CDT 40 mg (NS) 100 mL MINI-BAG 40 mg, IV Piggyback, Q24H, First dose on Tue01/30/19 at 1900, Until Discontinued, 100 mL Given 01/30/2019 6:31 PM CDT 40 mg verapamil SR (CALAN SR) ER tablet 120 mg Given 02/01/2019 9:01 AM CDT 120 mg 120 mg, Oral, DAILY, First dose on Tue01/30/19 at 0900, Until Discontinued, Routine Given 01/31/2019 8:12 AM CDT 120 mg Given 01/30/2019 9:28 AM CDT 120 mg Medication Order MAR Action Action Date Dose Rate Site acetaminophen ADULT (OFIRMEV) Given 01/31/2019 4:44 AM CDT 1,000 mg injection 1,000 mg 1,000 mg, IV Infusion, Administer over 15 Minutes, Q6H ABX, 4 doses, First dose on Tue01/30/19 at 1030, Last dose on Tue01/31/19 at 0430, Routine, Indication: Non-perioperative Patient, Approved by: [facility] [employer] Given 01/30/2019 9:43 PM CDT 1,000 mg Given 01/30/2019 5:00 PM CDT 1,000 mg acetaminophen ADULT (OFIRMEV) injection Given 02/01/2019 5:36 AM CDT 1,000 mg 1,000 mg 1,000 mg, IV Infusion, Administer over 15 Minutes, Q6H ABX, 4 doses, First dose on Tue01/31/19 at 1100, Last dose on Tue02/01/19 at 0500, Routine, Indication: Non-perioperative Patient, Approved by: [employer] [employer] Given 02/01/2019 12:19 AM CDT 1,000 mg Given 01/31/2019 5:39 PM CDT 1,000 mg FENTanyl PF (SUBLIMAZE (PF)) injection 50 Given 01/30/2019 12:29 AM CDT 50 mcg mcg 50 mcg, Slow IV Push, ONCE, 1 dose, Tue01/30/19 at 0100, Routine hydralAZINE (APRESOLINE) injection 10 mg Given 01/30/2019 12:40 AM CDT 10 mg 10 mg, Intravenous, ONCE NOW, 1 dose, Tue01/30/19 at 0100, Routine, Indication: Hypertensive Emergency iohexol (OMNIPAQUE 350 BULK) 60 mL Given 01/31/2019 11:40 AM CDT 60 mL 60 mL, Oral, ONCE, 1 dose, Tue01/31/19 at 1145, Routine iohexol (OMNIPAQUE 350 BULK-150 mL) Given 01/30/2019 2:45 AM CDT 120 mL injection 120 mL 120 mL, Intravenous, ONCE, 1 dose, 01/30/19 at 0245, Routine morpHINE injection 4 mg Given 01/30/2019 1:13 AM CDT 4 mg 4 mg, Slow IV Push, ONCE, 1 dose, Tue01/30/19 at 0215, STAT morpHINE injection 4 mg Given 01/30/2019 3:27 AM CDT 4 mg 4 mg, Slow IV Push, ONCE, 1 dose, Tue01/30/19 at 0430, STAT morpHINE injection 4 mg Given 01/30/2019 8:51 AM CDT 4 mg 4 mg, Slow IV Push, ONCE, 1 dose, Tue01/30/19 at 1000, STAT NaCl 0.9% (NS) bolus infusion New Bag 01/30/2019 12:29 AM CDT 1,000 mL 999 mL/hr 1,000 mL at 999 mL/hr, 1,000 mL, IV Infusion, ONCE, 1 dose, 01/30/19 at 0000, DEONNA NaCl 0.9% (NS) IV infusion 1,000 New Bag 01/30/2019 3:27 AM CDT 1,000 mL 100 mL/hr mL at 100 mL/hr, IV Infusion, CONTINUOUS, Starting Tue01/30/19 at 0330, Until Tue01/30/19 at 0338, DEONNA ondansetron (ZOFRAN (PF)) injection 4 mg Given 01/30/2019 12:37 AM CDT 4 mg 4 mg, Slow IV Push, ONCE, 1 dose, 01/30/19 at 0130, DEONNA verapamil (ISOPTIN) tablet 40 mg Given 02/01/2019 3:29 PM CDT 40 mg 40 mg, Oral, ONCE NOW, 1 dose, [facility] 02/01/19 at 1630, Routine documented in this encounter Insurance Payer Benefit Plan / Subscriber ID Effective Phone Address Type Group Dates MEDICAID MEDICAID PENDING 2019-[address] [place] [address] documented as of this encounter
--- OUTSIDE RECORDS SUMMARY | 2019-05-23 14:59 | XMS REPORT | Summary of Care ---
:1970 Author Organization [facility] Address [address] [place] [address] Care Team Providers Name Role Phone Marti Morocho Primary Care Provider Reason for Visit Reason Comments Follow-up Encounter Details Date Type Department Care Team Description 02/02/2019 Telephone [facility] FuentesNan MD Follow-up Healthcare- [address]i [address], [address] [place] [address] [place] [address] Allergies Active Allergy Reactions Severity [...] by 0 Active tablet mouth at bedtime. sulfamethoxazole-trimet Bactrim DS 800 mg-160 mg tablet 0 Active hoprim (BACTRIM DS) Take 1 tablet every 12 hours by oral route for 10 days. 800-160 mg per tablet pantoprazole 40 mg EC Take 1 tablet by 30 tablet 3 02/01/2019 Active tabletIndications: mouth daily. Generalized abdominal pain, Essential hypertension, Female pelvic hematoma, Superficial venous thrombosis of arm, left documented as of this encounter (statuses as [...] Visit Obstetrics & Gynecology Nan Fuentes MD [address] [place] [address] [address] [place] [address] [phone] 02/26/2019 Office Visit Obstetrics & Gynecology Nan Fuentes MD [address] [place] [address] [address] [place] [address] [phone] Health Maintenance Due Date Last Done Comments [...] Address Type Group Dates MEDICAID MEDICAID PENDING 2019-[address] [place] [address] documented as of this encounter
--- OUTSIDE RECORDS SUMMARY | 2019-05-23 14:59 | XMS REPORT | Summary of Care ---
:1970 Author Organization [facility] Address [address] [place] [address] Care Team Providers Name Role Phone Marti Morocho Primary Care Provider Reason for Visit Reason Comments Error See by PA Encounter Details Date Type Department Care Team Description 01/25/2019 Nurse Visit [facility] Fuentes, Nan Bailey MD [address] [place] [address] [address] [place] [address] [facility] [facility], [facility] ENCOUNTER--DISREGARD [address] [place] [address], (Primary Dx) [address] [place] [address] Allergies Active Allergy Reactions Severity [...] Visit Obstetrics & Gynecology Nan Fuentes MD [address] [place] [address] [place] [address] [phone] 02/26/2019 Office Visit Obstetrics & Gynecology Nan Fuentes MD [address] [place] [address] [place] [address] [phone] Health Maintenance Due Date Last Done Comments [...] Address Type Group Dates MEDICAID MEDICAID PENDING 2019-[address] [place] [address] documented as of this encounter
[2019-05-23] MEDS ORDERED: DIPHENHYDRAMINE 50 MG/ML VIAL ONE (16:09)
[2019-05-23] MEDS ORDERED: METOCLOPRAMIDE 10 MG/2mL INJ ONE (16:09)
[2019-05-23] MEDS ORDERED: NA CHLORIDE 0.9% 500 ML ONE (16:09)
[2019-05-23 16:34] LABS: Absolute Lymphocytes (CBC) 2.4 K/uL (0.7-4.9); Basophils % 1.1 % (0-1.3); Hematocrit 37.2 % (36.0-45.0); Lymphocytes % 29.6 % (15.3-44.8); MPV 8.6 fL (7.6-11.3)
--- NOTE | 2019-05-23 16:37 | RAD REPORT ---
EXAM DESCRIPTION: CT - Head Brain Wo Cont - 05/23/2019 4:26 pm CLINICAL HISTORY: Headache COMPARISON: None. TECHNIQUE: Computed axial tomography of the head was obtained. IV contrast was not requested. All CT scans are performed using dose optimization technique as appropriate and may include automated exposure control or mA/KV adjustment according to patient size. FINDINGS: An intracranial bleed is not seen . The ventricles are normal in caliber. No extra-axial fluid collection is noted. Fluid within the sinuses/ mastoids is not seen. IMPRESSION: No acute intracranial abnormality is seen. If patient's symptoms persist MRI of the bra in would be recommended.
[2019-05-23 16:40] LABS: Protime INR 0.98
[2019-05-23 17:18] LABS: ALT/SGPT 19 U/L (12-78); AST/SGOT 13 U/L (15-37); Albumin 3.2 g/dL (3.4-5.0); Alkaline Phosphatase 92 U/L (45-117); BUN Blood Urea Nitrogen 10 mg/dL (7-18); Bicarbonate 25 mmol/L (21-32); Bilirubin Direct < 0.1 mg/dL (0-0.2); Bilirubin Total 0.2 mg/dL (0.2-1.0); Glucose Level 102 mg/dL (74-106); NT PRO-BNP 354 pg/mL (<125); Protein, Total 6.8 g/dL (6.4-8.2); Sodium Level 144 mmol/L (136-145); Troponin (Emerg Dept Use Only) < 0.02 ng/mL (0.0-0.045)
[2019-05-23] MEDS ORDERED: POTASSIUM 25 MEQ EFFERV TAB ONE (17:36)
--- NOTE | 2019-05-23 17:37 | EDPHYS ---
Physician Documentation [facility] Name: Deena Douglass Age: 49 yrs Sex: Female : 1970 Arrival Date: 05/23/2019 Time: 14:54 Bed 8 Private MD: ED Physician Don Clement HPI: 05/23 15:42 This 49 yrs old Female presents to ER via Ambulatory with complaints of High jmm Blood Pressure. 15:42 The patient has elevated blood pressure and discovered this at home. Onset: The jmm symptoms/episode began/occurred gradually, 2 week(s) ago. Modifying factors: The symptoms are aggravated by The symptoms are alleviated by. Associated signs and symptoms: Pertinent positives: headache, Pertinent negatives: chest pain, dizziness, lightheadedness, vomiting, weakness. This is a 49 year old female with a history of htn that presents to the ED with complaints of headache, elevated blood pressure. Symptoms have been ongoing for the past 2 weeks. Patient is currently taking 100 mg of metoprolol BID and 40 mg of lisinopril BID. Patient states having an ongoing headache with BP readings of 188 systolic at home. Denies chest pain, shortness of breath, difficulty with urination. . SAP DATA ARCHITECT: 15:16 LMP N/A - Hysterectomy jl7 Historical: - Allergies: 15:16 PENICILLINS; jl7 - PMHx: 15:16 Hypertension; jl7 - PSHx: 15:16 ; Hysterectomy; jl7 - Immunization history:: Adult Immunizations. - Social history:: Smoking status: Patient/guardian denies using tobacco. - Ebola Screening: : No symptoms or risks identified at this time. ROS: 15:42 Constitutional: Negative for fever, chills, and weight loss, Cardiovascular: Negative jmm for chest pain, palpitations, and edema, Respiratory: Negative for shortness of breath, cough, wheezing, and pleuritic chest pain, Abdomen/GI: Negative for abdominal pain, nausea, vomiting, diarrhea, and constipation. 15:42 Neuro: Positive for headache. 15:42 All other systems are negative. Exam: 15:42 Constitutional: This is a well developed, well nourished patient who is awake, alert, jmm and in no acute distress. Head/Face: atraumatic. Eyes: EOMI, no conjunctival erythema appreciated ENT: Moist Mucus Membranes Neck: Trachea midline, Supple Chest/axilla: Normal chest wall appearance and motion. Cardiovascular: Regular rate and rhythm. No edema appreciated Respiratory: Normal respirations, no respiratory distress appreciated Abdomen/GI: Non distended, soft Back: Normal ROM Skin: General appearance color normal MS/ Extremity: Moves all extremities, no obvious deformities appreciated, no edema noted to the lower extremities Neuro: Awake and alert, normal gait Psych: Behavior is normal, Mood is normal, Patient is cooperative and pleasant Vital Signs: 15:16 BP 165 / 99; Pulse 71; Resp 17 S; Temp 98.2(O); Pulse Ox 99% on R/A; Weight 70.31 kg jl7 (R); Height 5 ft. 4 in. (162.56 cm) (R); Pain 8/10; 16:36 BP 146 / 93; Pulse 74; Resp 16; Pulse Ox 100% ; bp 17:44 BP 164 / 92; Pulse 72; Resp 16; Temp 98.5; Pulse Ox 100% ; bp 18:14 BP 148 / 92; Pulse 75; Resp 16; Temp 98.5; Pulse Ox 99% ; bp 15:16 Body Mass Index 26.61 (70.31 kg, 162.56 cm) 7 MDM: 15:42 Patient medically screened. devon 17:35 Data reviewed: vital signs, nurses notes. Counseling: I had a detailed discussion with devon the patient and/or guardian regarding: the historical points, exam findings, and any diagnostic results supporting the discharge/admit diagnosis, lab results, radiology results, the need for outpatient follow up, to return to the emergency department if symptoms worsen or persist or if there are any questions or concerns that arise at home. ED course: Patient is alert and non toxic in appearance in the ED. Advised to follow up with pcp and cardiology for reevaluation. Patient was otherwise given strict return precautions. Patient understood and agrees with the plan of care. . 05/23 15:54 Order name: Basic Metabolic Panel; Complete Time: 17:24 [facility] 05/23 15:54 Order name: CBC with Diff; Complete Time: 16:39 [facility] 05/23 15:54 Order name: LFT's; Complete Time: 17:24 [facility] 05/23 15:54 Order name: Magnesium; Complete Time: 17:24 [facility] 05/23 15:54 Order name: NT PRO-BNP; Complete Time: 17:24 [facility] 05/23 15:54 Order name: PT-INR; Complete Time: 16:53 [facility] 05/23 15:54 Order name: Troponin (emerg Dept Use Only); Complete Time: 17:24 [facility] 05/23 15:54 Order name: EKG; Complete Time: 15:55 [facility] 05/23 15:54 Order name: CT Head Brain wo Cont; Complete Time: 16:39 [facility] 05/23 15:54 Order name: Cardiac monitoring; Complete Time: 16:35 [facility] 05/23 15:54 Order name: EKG - Nurse/Tech; Complete Time: 16:53 [facility] 05/23 15:54 Order name: IV Saline Lock; Complete Time: 16:32 [facility] 05/23 15:54 Order name: Labs collected and sent; Complete Time: 16:32 [facility] 05/23 15:54 Order name: O2 Per Protocol; Complete Time: 16:32 [facility] 05/23 15:54 Order name: O2 Sat Monitoring; Complete Time: 16:32 jmm Administered Medications: 16:10 Drug: NS 0.9% 500 ml Route: IV; Rate: bolus; Site: right forearm; bp 17:25 Follow up: IV Status: Completed infusion; IV Intake: 500ml bp 16:10 Drug: Reglan 10 mg Route: IVP; Site: right forearm; bp 17:25 Follow up: Response: Marked relief of symptoms bp 16:10 Drug: diphenhydrAMINE 25 mg Route: IVP; Site: right forearm; bp 17:25 Follow up: Response: Marked relief of symptoms bp 17:30 Drug: K-Lyte Effervescent Tablet 50 mEq Route: PO; bp 17:43 Follow up: Response: No adverse reaction bp 17:43 Drug: morphine 4 mg Route: IVP; Site: right forearm; bp 17:43 Follow up: Response: Pain is decreased bp Disposition: 19:18 Co-signature as Attending Physician, Don Clement MD I agree with the assessment and kdr plan of care. Disposition: 05/23/19 17:36 Discharged to Home. Impression: Headache, Elevated Blood Pressure. - Condition is Stable. - Discharge Instructions: General Headache Without Cause, How to Take Your Blood Pressure, Egkb-gc-[id number]. - Prescriptions for Ultracet 37.5- 325 mg Oral Tablet - take 1 tablet by ORAL route every 6 hours - for up to 5 days; do not exceed 8 tablets per day.; 20 tablet. - Medication Reconciliation Form, Thank You Letter, Antibiotic Education, Prescription Opioid Use form. - Follow up: Perry Felix MD; When: 2 - 3 days; Reason: Recheck today's complaints, Continuance of care, Re-evaluation by your physician. Signatures: Dispatcher [employer] EDMS Don Clement MD MD kdr Mickail, Joel, PA PA jmm Leal, Jahala, RN RN jl7 Yonatan Black RN RN bp Corrections: (The following items were deleted from the chart) 18:15 17:36 05/23/2019 17:36 Discharged to Home. Impression: Headache; Elevated Blood bp Pressure. Condition is Stable. Forms are Medication Reconciliation Form, Thank You Letter, Antibiotic Education, Prescription Opioid Use. Follow up: Perry Felix; When: 2 - 3 days; Reason: Recheck today's complaints, Continuance of care, Re-evaluation by your physician. devon
--- NOTE | 2019-05-23 17:37 | ER ---
Nurse's Notes [facility] Name: Deena Douglass Age: 49 yrs Sex: Female : 1970 Arrival Date: 05/23/2019 Time: 14:54 Bed 8 Private MD: Diagnosis: Headache;Elevated Blood Pressure Presentation: 05/23 15:12 Presenting complaint: Patient states: Over the last few weeks my doctor has been jl7 switching my BP medications trying to find the right one and today she told me to come here to get relief because my BP is still high. Transition of care: patient was not received from another setting of care. Onset of symptoms was May 23, 2019. Risk Assessment: Do you want to hurt yourself or someone else? Patient reports no desire to harm self or others. Initial Sepsis Screen: Does the patient meet any 2 criteria? No. Patient's initial sepsis screen is negative. Does the patient have a suspected source of infection? No. Patient's initial sepsis screen is negative. Care prior to arrival: None. 15:12 Method Of Arrival: Ambulatory jl 15:12 Acuity: DU 3 jl7 Triage Assessment: 15:16 General: Appears in no apparent distress. uncomfortable, Behavior is calm, cooperative, jl7 appropriate for age. Pain: Complains of pain in ROMAN Pain currently is 8 out of 10 on a pain scale. 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 - Social history:: Smoking status: Patient/guardian denies using tobacco. - Ebola Screening: : No symptoms or risks identified at this time. Screenin:32 Abuse screen: Denies threats or abuse. Denies injuries from another. Nutritional bp screening: No deficits noted. Tuberculosis screening: No symptoms or risk factors identified. Fall Risk None identified. Assessment: 15:20 General: SEE TRIAGE NOTE. bp 16:36 Reassessment: PT RETURNED FROM CT. ALL CURRENT ORDERS COMPLETE, RESULTS PENDING. bp 18:13 Reassessment: PT D/C HOME AMBULATORY WITH FAMILY, DX WITH HEADACHE AND HYPERTENSION. bp Vital Signs: 15:16 BP 165 / 99; Pulse 71; Resp 17 S; Temp 98.2(O); Pulse Ox 99% on R/A; Weight 70.31 kg jl7 (R); Height 5 ft. 4 in. (162.56 cm) (R); Pain 8/10; 16:36 BP 146 / 93; Pulse 74; Resp 16; Pulse Ox 100% ; bp 17:44 BP 164 / 92; Pulse 72; Resp 16; Temp 98.5; Pulse Ox 100% ; bp 18:14 BP 148 / 92; Pulse 75; Resp 16; Temp 98.5; Pulse Ox 99% ; bp 15:16 Body Mass Index 26.61 (70.31 kg, 162.56 cm) jl7 ED Course: 14:54 Patient arrived in ED. rg4 15:14 Triage completed. jl7 15:16 Arm band placed on right wrist. jl7 15:26 Owen De Dios PA is PHCP. jmm 15:26 Don Clement MD is Attending Physician. jmm 15:32 Yonatan Black, ALFONSO is Primary Nurse. bp 15:32 Patient has correct armband on for positive identification. Bed in low position. Call bp light in reach. Side rails up X2. 16:10 Inserted saline lock: 22 gauge in right forearm, using aseptic technique. Blood bp collected. 16:26 CT Head Brain wo Cont In Process Unspecified. EDMS 17:35 Perry Felix MD is Referral Physician. jmm 18:14 No provider procedures requiring assistance completed. IV discontinued, intact, bp bleeding controlled, No redness/swelling at site. Pressure dressing applied. Administered Medications: 16:10 Drug: NS 0.9% 500 ml Route: IV; Rate: bolus; Site: right forearm; bp 17:25 Follow up: IV Status: Completed infusion; IV Intake: 500ml bp 16:10 Drug: Reglan 10 mg Route: IVP; Site: right forearm; bp 17:25 Follow up: Response: Marked relief of symptoms bp 16:10 Drug: diphenhydrAMINE 25 mg Route: IVP; Site: right forearm; bp 17:25 Follow up: Response: Marked relief of symptoms bp 17:30 Drug: K-Lyte Effervescent Tablet 50 mEq Route: PO; bp 17:43 Follow up: Response: No adverse reaction bp 17:43 Drug: morphine 4 mg Route: IVP; Site: right forearm; bp 17:43 Follow up: Response: Pain is decreased bp Intake: 17:25 IV: 500ml; Total: 500ml. bp Outcome: 17:36 Discharge ordered by . devon 18:14 Discharged to home ambulatory, with family. bp 18:14 Condition: stable 18:14 Discharge instructions given to patient, Instructed on discharge instructions, follow up and referral plans. medication usage, Demonstrated understanding of instructions, follow-up care, medications, Prescriptions given X 1. 18:15 Patient left the ED. bp Signatures: Dispatcher [employer] EDMS Owen De Dios PA PA jmm Garcia, Rubi rg4 Constance Santos RN RN jl7 Yonatan Black RN RN bp
[2019-05-23] MEDS ORDERED: MORPHINE 4 MG/ML SYR ONE (17:42)
[2019-05-23 18:51] VITALS: TEMP 98.5
[2019-05-23 18:52] VITALS: BP 148/92; O2SAT 99
--- NOTE | 2019-05-24 06:46 | EKG ---
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
== END 2019-05-23 18:15 | disposition home or self-care (01) ==
LOC: ER 14:52
DX: I10 Essential (primary) hypertension (principal); Z88.0 Allergy status to penicillin
CPT/HCPCS: 96361; 93005; 85025; 80048; 36415; 83735; 85610; 80076; 84484; 83880; 70450; 96375; 96374; 99284; J2765; J1200; J7040

== ENCOUNTER 2019-07-16 13:21 | Emergency (ER) | payer OTHER ==
--- OUTSIDE RECORDS SUMMARY | 2019-07-16 13:24 | XMS REPORT ---
:1970 [facility] Address [address] [place] [address] [address] [place] [address] Care Team Providers Name Role Phone Unavailable Unavailable Unavailable Problems This patient has no known problems. Allergies, Adverse Reactions, Alerts This patient has no known allergies or adverse reactions. Medications This patient has no known medications.
--- OUTSIDE RECORDS SUMMARY | 2019-07-16 13:29 | XMS REPORT | Summary of Care ---
:1970 Author Organization [facility] - Health Address [address] [place] [address] Care Team Providers Name Role Phone Marti Morocho Primary Care Provider Encounter Details Date Type Department Care Team Description 05/24/2019 Orders Only [facility] Doctor Unassigned, No [address] [facility] Name [place], [place] [address] [place] [address] Allergies Active Allergy Reactions Severity Noted Date Comments Penicillin Unknown - See comments 08/01/2015 documented as of this encounter (statuses as of 06/13/2019) Medications Medication Sig Dispensed Refills Start Date [...] by 0 Active tablet mouth at bedtime. pantoprazole 40 mg EC Take 1 tablet by 30 tablet 3 02/01/2019 Active tabletIndications: mouth daily. Generalized abdominal pain, Essential hypertension, Female pelvic hematoma, Superficial venous thrombosis of arm, left ibuprofen 600 mg Take 1 tablet by 30 tablet 0 04/01/2019 Active tabletIndications: mouth every 6 Sprain of left ankle, (six) hours as unspecified ligament, needed for Pain initial encounter (scale 4-6). documented as of this encounter (statuses as of 06/13/2019) Active Problems Problem Noted Date Female pelvic hematoma 01/30/2019 Partial intestinal obstruction 01/30/2019 Multiple pulmonary nodules determined by computed tomography of lung 2018 Essential hypertension 01/30/2019 Anxiety 01/30/2019 Superficial venous thrombosis of arm, left 01/21/2019 Pelvic mass 01/18/2019 Obesity (BMI 30-39.9) 01/18/2019 Abdominal pain 01/17/2019 Leg pain, left 08/01/2015 documented as of this encounter (statuses as of 06/13/2019) Social History Tobacco Use Types Packs/Day Years [...] Treatment Date Type Specialty Care Team Description 06/15/2019 Appointment Radiology FuentesNan MD [address] [place] [address] 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
--- OUTSIDE RECORDS SUMMARY | 2019-07-16 13:30 | XMS REPORT | Summary of Care ---
:1970 Author Organization [facility] - Health Address [address] [place] [address] Care Team Providers Name Role Phone Marti Morocho Primary Care Provider Encounter Details Date Type Department Care Team Description 07/02/2019 Orders Only [facility] Doctor Unassigned, No [address] [facility] Name [place], [place] [id number] [place] [address] Allergies Active Allergy Reactions Severity Noted Date Comments Penicillin Unknown - See comments 08/01/2015 documented as of this encounter (statuses as of 07/06/2019) Medications Medication Sig Dispensed Refills Start Date End Date Status metoprolol Take by mouth. 0 Active chatman-hydrochlorothiaz (DUTOPROL) 50-12.5 mg Tb24 metformin ER Take 500 mg by 0 Active (GLUCOPHAGE-XR) 500 mg 24 mouth daily with hr tablet breakfast. NUTRITIONAL Take by mouth. [...] by 30 tablet 0 04/01/2019 Active tabletIndications: Sprain mouth every 6 of left ankle, (six) hours as unspecified ligament, needed for Pain initial encounter (scale 4-6). metoprolol succinate XL metoprolol 0 05/21/2019 Active 100 mg 24 hr tablet succinate ER 100 mg tablet,extended release 24 hr OMEPRAZOLE ORAL Take by mouth. 0 Active estradiol 1 mg tablet Take 1 mg by 0 Active mouth daily. vit Take by mouth. 0 Active calc,iron,folic ( VITAMIN ORAL) amLODIPine 5 mg tablet Take 5 mg by 0 Active mouth daily. valsartan 320 mg tablet Take 320 mg by 0 Active mouth daily. HYDROCHLOROTHIAZIDE ORAL Take by mouth. 0 Active docusate sodium (STOOL Take by mouth. 0 Active SOFTENER ORAL) sennosides (LAXATIVE Take by mouth. 0 Active ORAL) levocetirizine (XYZAL) 5 Take 5 mg by 0 Active mg tablet mouth every evening. documented as of this encounter (statuses as of 07/06/2019) Active Problems Problem Noted Date Female pelvic hematoma 01/30/2019 Partial intestinal obstruction 01/30/2019 Multiple pulmonary nodules determined by computed tomography of lung 2018 Essential hypertension 01/30/2019 Anxiety 01/30/2019 Superficial venous thrombosis of arm, left 01/21/2019 Pelvic mass 01/18/2019 Obesity (BMI 30-39.9) 01/18/2019 Abdominal pain 01/17/2019 Leg pain, left 08/01/2015 documented as of this encounter (statuses as of 07/06/2019) Social History Tobacco Use Types Packs/Day Years [...] Treatment Date Type Specialty Care Team Description 07/23/2019 Office Visit Obstetrics & Gynecology Inga Valdes PA-C [address] [place] [id number] Health Maintenance Due Date Last Done [...] Procedure Name Priority Date/Time Associated Diagnosis Comments IMMTRAC2 CONSENT Routine 07/02/2019 12:[address] REPORTER documented in this encounter Results Not on filedocumented in this encounter Insurance Payer Benefit Plan / Subscriber ID Effective Phone Address Type Group Dates [employer] xxxxxxxxx 2019-Prese [address] [place] [id number] [place] [address] documented as of this encounter
--- OUTSIDE RECORDS SUMMARY | 2019-07-16 13:30 | XMS REPORT | Summary of Care ---
:1970 Author Organization [facility] Address [address] [place] [address] Care Team Providers Name Role Phone Marti Morocho Primary Care Provider Reason for Visit Reason Comments Results Encounter Details Date Type Department Care Team Description 06/18/2019 Telephone [facility] Women[facility] Fuentes, Nan Bailey MD Results Healthcare- [address], [address] [place] [address] [place] [address] Allergies Active Allergy Reactions Severity Noted Date Comments Penicillin Unknown - See comments 08/01/2015 documented as of this encounter (statuses as of 06/18/2019) Medications Medication Sig Dispensed Refills Start Date [...] as of this encounter (statuses as of 06/18/2019) Active Problems Problem Noted Date Female pelvic hematoma 01/30/2019 Partial intestinal obstruction 01/30/2019 Multiple pulmonary nodules determined by computed tomography of lung 2018 Essential hypertension 01/30/2019 Anxiety 01/30/2019 Superficial venous thrombosis of arm, left 01/21/2019 Pelvic mass 01/18/2019 Obesity (BMI 30-39.9) 01/18/2019 Abdominal pain 01/17/2019 Leg pain, left 08/01/2015 documented as of this encounter (statuses as of 06/18/2019) Social History Tobacco Use Types Packs/Day Years [...] [address] [place] [id number] [place] [address] documented as of this encounter
--- OUTSIDE RECORDS SUMMARY | 2019-07-16 13:30 | XMS REPORT | Summary of Care ---
:1970 Author Organization [facility] Address [address] [place] [address] Care Team Providers Name Role Phone Marti Morocho Primary Care Provider Reason for Visit Reason Comments Results Encounter Details Date Type Department Care Team Description 06/21/2019 Telephone [facility] Women's Fuentes, Nan Bailey MD Results Healthcare- [address], [address] [place] [address] [place] [address] Allergies Active Allergy Reactions Severity Noted Date Comments Penicillin Unknown - See comments 08/01/2015 documented as of this encounter (statuses as of 06/21/2019) Medications Medication Sig Dispensed Refills Start Date [...] as of this encounter (statuses as of 06/21/2019) Active Problems Problem Noted Date Female pelvic hematoma 01/30/2019 Partial intestinal obstruction 01/30/2019 Multiple pulmonary nodules determined by computed tomography of lung 2018 Essential hypertension 01/30/2019 Anxiety 01/30/2019 Superficial venous thrombosis of arm, left 01/21/2019 Pelvic mass 01/18/2019 Obesity (BMI 30-39.9) 01/18/2019 Abdominal pain 01/17/2019 Leg pain, left 08/01/2015 documented as of this encounter (statuses as of 06/21/2019) Social History Tobacco Use Types Packs/Day Years [...] Treatment Date Type Specialty Care Team Description 07/02/2019 Office Visit Obstetrics & Gynecology Nan Fuentes MD [address] [place] [address] [place] [address] Health Maintenance Due Date Last [...] Group Dates [employer] xxxxxxxxx 2019-Rose [address] [place] [id number] [place] [address] documented as of this encounter
--- OUTSIDE RECORDS SUMMARY | 2019-07-16 13:30 | XMS REPORT | Summary of Care ---
:1970 Author Organization [facility] Address [address] [place] [id number] Care Team Providers Name Role Phone Marti Morocho Primary Care Provider Reason for Referral Radiology Services (Routine) Status Reason Specialty Diagnoses / Referred By Referred To Procedures Contact Contact Closed Diagnostic Diagnoses Female pelvic hematoma Kera Alvarez, Radiology Procedures US PELVIS COMPLETE WITH TRANSVAGINAL [address] [place] [address] [address]. Bejarano [address] [place] [address] Reason for Visit Radiology Services (Routine) Status Reason Specialty Diagnoses / Referred By Referred To Procedures Contact Contact Closed Diagnostic Diagnoses Female pelvic hematoma Kera Alvarez, Radiology Procedures US PELVIS COMPLETE WITH TRANSVAGINPAUL WHITESIDE [address] [place] [address] [address]. Bejarano [address] [place] [address] Encounter Details Date Type Department Care Team Description 06/15/2019 Hospital Encounter [facility] Kera Ge MD Arrived [facility] [address] [place] [address] [place] [address] [facility] [address] [place] [address] Allergies Active Allergy Reactions Severity Noted Date Comments Penicillin Unknown - See comments 08/01/2015 documented as of this encounter (statuses as of 06/16/2019) Medications Medication Sig Dispensed Refills Start Date [...] as of this encounter (statuses as of 06/16/2019) Active Problems Problem Noted Date Female pelvic hematoma 01/30/2019 Partial intestinal obstruction 01/30/2019 Multiple pulmonary nodules determined by computed tomography of lung 2018 Essential hypertension 01/30/2019 Anxiety 01/30/2019 Superficial venous thrombosis of arm, left 01/21/2019 Pelvic mass 01/18/2019 Obesity (BMI 30-39.9) 01/18/2019 Abdominal pain 01/17/2019 Leg pain, left 08/01/2015 documented as of this encounter (statuses as of 06/16/2019) Social History Tobacco Use Types Packs/Day Years [...] Procedure Name Priority Date/Time Associated Comments Diagnosis US PELVIS COMPLETE Routine 06/15/2019 5:19 Female pelvic Results for this WITH TRANSVAGINAL PM PICK UP OPERATOR hematoma procedure are in the results section. NOTICE OF PRIVACY Routine 06/15/2019 4:28 PRACTICES PM PICK UP OPERATOR CONSENT/REFUSAL FOR Routine 06/15/2019 4:28 DIAGNOSIS AND PM PICK UP OPERATOR TREATMENT ASSIGNMENT OF Routine 06/15/2019 4:26 BENEFITS PM PICK UP OPERATOR documented in this encounter Results US PELVIS COMPLETE WITH TRANSVAGINAL (06/15/2019 5:19 PM PICK UP OPERATOR) Specimen Impressions Performed At There are images of the pelvis rather than anterior pelvic wall PACS/VR/DOSE but there are images of the lateral pelvic wall. On the right there is a anechoic structure measuring 17 x 35 x 26 mm. It is unclear if this is ovary or ovarian cyst. It does not have the typical appearance of a hematoma. 2. There is no free fluid. RL: 6200 END OF REPORT Narrative Performed At Ordering Physician: KERA ALVAREZ PACS/VR/DOSE Clinical Indication: Please assess pelvic wall hematoma for stability Additional Clinical Information: Comparison: None Technique: Pelvic ultrasound Findings: There is no focal bladder wall thickening. There is a cystic structure in right adnexa that measures 3.6 x 1.9 cm. Neither ovary are well seen and therefore transvaginal exam was also performed. Within segment right ovary measures 1.7 x 3.5 x 2.6 cm. Uterus is absent. No adnexal mass seen in the left. There is no free fluid. Procedure Note [facility], Radiant Results Inft User - 06/15/2019 5:55 PM PICK UP OPERATOR Ordering Physician: KERA ALVAREZ Clinical Indication: Please assess pelvic wall hematoma for stability Additional Clinical Information: Comparison: None Technique: Pelvic ultrasound Findings: There is no focal bladder wall thickening. There is a cystic structure in right adnexa that measures 3.6 x 1.9 cm. Neither ovary are well seen and therefore transvaginal exam was also performed. Within segment right ovary measures 1.7 x 3.5 x 2.6 cm. Uterus is absent. No adnexal mass seen in the left. There is no free fluid. IMPRESSION There are images of the pelvis rather than anterior pelvic wall but there are images of the lateral pelvic wall. On the right there is a anechoic structure measuring 17 x 35 x 26 mm. It is unclear if this is ovary or ovarian cyst. It does not have the typical appearance of a hematoma. 2. There is no free fluid. RL: 6200 END OF REPORT Performing Organization Address City/State/Zipcode Phone Number PACS/VR/DOSE documented in this encounter Visit Diagnoses Diagnosis Female pelvic hematoma Other specified disorders of female genital organs documented in this encounter Insurance Payer Benefit Plan / Subscriber ID Effective Phone Address Type Group Dates [employer] xxxxxxxxx 2019-[address] [place] [id number] [place] [address] documented as of this encounter
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
--- NOTE | 2019-07-16 15:04 | RAD REPORT ---
EXAM DESCRIPTION: CT - Thorax Wo Ilia - 07/16/2019 2:37 pm CLINICAL HISTORY: PAIN, fall of 6-7 feet with chest, back and right shoulder pain COMPARISON: Chest Single View dated 07/16/2019 TECHNIQUE: Axial 5 mm thick images of the chest were obtained without IV contrast. All CT scans are performed using dose optimization technique as appropriate and may include automated exposure control or mA/KV adjustment according to patient size. FINDINGS: No pulmonary contusion or acute traumatic injury to the lung parenchyma. Patient has numer ous 2-8 mm size noncalcified pulmonary nodules throughout both lung tom. No one single large mass or infiltrate. No cavitation. No pleural thickening or pleural effusion. No pneumothorax. No abnormal mediastinal or hilar masses or lymphadenopathy seen. No gross aortic or pulmonary artery finding suspected. Assessment is limited in the absence of IV contrast. No chest wall mass or abnormal axillary lymphadenopathy. IMPRESSION: No acute traumatic injuries to the chest identified. Numerous 2-8 mm size noncalcified pulmonary nodules. No history of malignancy or infection noted. Th alexx may be numerous benign granulomatous nodules.
--- NOTE | 2019-07-16 15:07 | RAD REPORT ---
EXAM DESCRIPTION: CT - C Spine Wo Con - 07/16/2019 2:37 pm CLINICAL HISTORY: Fall, head, neck, chest pain COMPARISON: None. TECHNIQUE: Axial 2 mm thick images of the cervical spine were obtained with sagittal and coronal rec onstruction images generated and reviewed. All CT scans are performed using dose optimization technique as appropriate and may include automated exposure control or mA/KV adjustment according to patient size. FINDINGS: Cervical body height and alignment are normal. No disk space narrowing. No fracture or acu te bony abnormality. No paraspinal mass or hematoma. Central canal detail is inherently limited on CT imaging. IMPRESSION: Negative CT cervical spine examination. Central canal detail is inherently limited.
--- NOTE | 2019-07-16 15:09 | RAD REPORT ---
EXAM DESCRIPTION: RAD - Chest Single View - 07/16/2019 2:52 pm CLINICAL HISTORY: COUGH COMPARISON: No comparisons TECHNIQUE: AP portable chest image was obtained 07/16/2019 2:52 pm . FINDINGS: Lungs are clear. Heart and vasculature are normal. No measurable pleural effusion and no p neumothorax. No acute bony abnormality seen. No acute aortic findings suspected. IMPRESSION: No acute cardiopulmonary process.
--- NOTE | 2019-07-16 15:11 | RAD REPORT ---
EXAM DESCRIPTION: Shoulder Right 2 View - 07/16/2019 2:52 pm CLINICAL HISTORY: PAIN COMPARISON: No comparisons TECHNIQUE: Internal and external rotation views of the right shoulder were obtained. FINDINGS: There is no fracture or dislocation. AC joint is normal in appearance. No acute or suspic ious findings. IMPRESSION: Negative two-view right shoulder examination.
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
--- NOTE | 2019-07-16 16:39 | ER ---
Nurse's Notes [facility] Name: Deena Douglass Age: 49 yrs Sex: Female : 1970 Arrival Date: 07/16/2019 Time: 13:23 Bed 30 Private MD: Diagnosis: Contusion of right shoulder;Concussion with loss of consciousness of 30 minutes or less;Contusion of right front wall of thorax Presentation: 07/15 13:40 Chief complaint: Patient states: Pain to R side of neck, R shoulder blade and R lateral ss chest wall pain that began after falling 6-7 feet off of fence yesterday. Care prior to arrival: None. Mechanism of Injury: Fall. Trauma event details: Injury occurred in the [facility], Injury occurred: in a recreational area. 13:40 Acuity: DU 3 ss 13:40 Method Of Arrival: Ambulatory ss 13:40 Coronavirus screen: The patient has NOT traveled to [place] in the past 14 days. Proceed ss with normal triage procedures. Ebola Screen: Patient denies exposure to infectious person. Patient denies travel to an Ebola-affected area in the 21 days before illness onset. Initial Sepsis Screen: Does the patient meet any 2 criteria? No. Patient's initial sepsis screen is negative. Does the patient have a suspected source of infection? No. Patient's initial sepsis screen is negative. Risk Assessment: Do you want to hurt yourself or someone else? Patient reports no desire to harm self or others. 07/16 01:50 Onset of symptoms was July 15, 2019 at 12:00. ls4 Triage Assessment: 07/15 14:00 General: Appears in no apparent distress. distressed. ls4 14:00 Neuro: Level of Consciousness is awake, alert, obeys commands, Oriented to person, ls4 place, time, situation. Cardiovascular: No deficits noted. Respiratory: Airway is patent Respiratory effort is even, unlabored, Respiratory pattern is regular. GI: Abdomen is non-distended, Bowel sounds present X 4 quads. Abd is soft and non tender X 4 quads. Musculoskeletal: Circulation, motion, and sensation intact. Capillary refill < 3 seconds, Range of motion: intact in all extremities, Swelling absent. 14:10 General: Behavior is calm, appropriate for age. ls4 14:10 Pain:. ls4 Trauma Activation: Not Applicable Physician: ED Physician; Name: ; Notified At: ; Arrived At: Physician: General Surgeon; Name: ; Notified At: ; Arrived At: Physician: Radiology; Name: ; Notified At: ; Arrived At: Physician: Respiratory; Name: ; Notified At: ; Arrived At: Physician: Lab; Name: ; Notified At: ; Arrived At: Historical: - Allergies: 14:17 PENICILLINS; ss - PMHx: 14:17 Hypertension; ss - PSHx: 14:17 ; Hysterectomy; ss - Immunization history:: Adult Immunizations up to date. - Social history:: Smoking status: Patient denies any tobacco usage or history of. - Immunization history: Last tetanus immunization: unknown. Screenin:40 Abuse screen: Denies threats or abuse. Denies injuries from another. Tuberculosis ss screening: Never had TB. 14:00 Nutritional screening: No deficits noted. Fall Risk None identified. ls4 Primary Survey: 13:40 NO uncontrolled hemorrhage observed. A: The patient is alert. Airway: patent, Oxygen ss via non-rebreather No supplemental oxygen in use on arrival. Oral cavity: clear, Trachea midline. Breathing/Chest: Respiratory pattern: regular, Respiratory effort: spontaneous, unlabored, Breath sounds: clear, bilaterally. Chest inspection: symmetrical rise and fall of the chest. Circulation: Pulses: palpable right radial artery, right posterior tibial artery, left radial artery and left posterior tibial artery. Skin color: pink, Skin temperature: warm. Disability Alert. Exposure/Environment: All clothing and personal items were removed. Forensic evidence collection is not deemed to be indicated at this time. Items placed in patient belonging bag. There is no evidence of uncontrolled external bleeding. 14:00 Reassessment Breathing/Chest Respiratory pattern Regular Respiratory effort Spontaneous ls4 Unlabored Breath sounds Clear Circulation Pulses Palpable Color [place] Temperature Warm Dry Disability Alert. Secondary Survey: 14:30 HEENT: No deficits noted. Gastrointestinal: No deficits noted. : No deficits noted. ls4 Musculoskeletal: No deficits noted. Injury Description: NO VISIBLE INJURIES. Assessment: 15:33 Reassessment: C collar removed. Ok per Dr. Hughes. ss 16:04 Reassessment: Patient appears in no apparent distress at this time. Patient and/or ls4 family updated on plan of care and expected duration. Pain level reassessed. Patient is alert, oriented x 3, equal unlabored respirations, skin warm/dry/pink. 16:30 Reassessment: Patient appears in no apparent distress at this time. Patient and/or ls4 family updated on plan of care and expected duration. Pain level reassessed. Patient is alert, oriented x 3, equal unlabored respirations, skin warm/dry/pink. Vital Signs: 13:40 BP 142 / 84; Pulse 98; Resp 16; Temp 99.0(TE); Pulse Ox 99% on R/A; Weight 72.57 kg; ss Height 5 ft. 5 in. (165.10 cm); Pain 8/10; 14:40 BP 122 / 70; Pulse 78; Resp 16; Pulse Ox 99% on R/A; Pain 5/10; ls4 15:30 BP 129 / 72; Pulse 78; Resp 16; Pulse Ox 99% on R/A; Pain 3/10; ls4 16:45 BP 128 / 70; Pulse 78; Resp 16; Temp 98.4(O); Pulse Ox 99% on R/A; Pain 3/10; ls4 13:40 Body Mass Index 26.63 (72.57 kg, 165.10 cm) ss [place] Coma Score: 13:40 Eye Response: spontaneous(4). Verbal Response: oriented(5). Motor Response: obeys commands(6). Total: 15. Trauma Score (Adult): 13:40 Eye Response: spontaneous(1); Verbal Response: oriented(1); Motor Response: obeys ss commands(2); Systolic BP: > 89 mm Hg(4); Respiratory Rate: 10 to 29 per min(4); [place] Score: 15; Trauma Score: 12 ED Course: 13:23 Patient arrived in ED. mr 13:40 Patient has correct armband on for positive identification. Bed in low position. Call light in reach. 13:40 Patient maintains SpO2 saturation greater than 95% on room air. Thermoregulation: warm ss blanket given to patient. 13:40 Rigid cervical collar applied. ss 13:48 Michel Hughes MD is Attending Physician. tw4 13:52 Shannan Rodrigues, ALFONSO is Primary Nurse. ls4 14:00 Pulse ox on. NIBP on. Warm blanket given. Diet: Patient is NPO. ls4 14:00 No provider procedures requiring assistance completed. ls4 14:00 Patient did not have IV access during this emergency room visit. ls4 14:06 Triage completed. ss 14:17 Arm band placed on right wrist. ss 14:39 CT C Spine In Process Unspecified. EDMS 14:39 CT Chest Wo Con In Process Unspecified. EDMS 14:39 CT Head Brain wo Cont In Process Unspecified. EDMS 14:52 Shoulder Right (2 View) XRAY In Process Unspecified. EDMS 14:52 Chest Single View XRAY In Process Unspecified. EDMS Administered Medications: No medications were administered Intake: 16:40 PO: 0ml; Total: 0ml. ls4 Output: 16:40 Urine: 300ml (Voided); Total: 300ml. ls4 Outcome: 16:38 Discharge ordered by . tw4 16:50 Discharged to home ambulatory, with family. ls4 16:50 Condition: stable 16:50 Discharge instructions given to patient, family, Instructed on discharge instructions, follow up and referral plans. medication usage, Demonstrated understanding of instructions, follow-up care, medications, Prescriptions given X 1. 16:52 Patient left the ED. ls4 Signatures: Dispatcher [employer] [facility] Betsy Allison mr Mireya Mendez, RN RN ss Michel Hughes MD MD tw4 Shannan Rodrigues RN RN ls4 Corrections: (The following items were deleted from the chart) 14:12 13:50 Rigid cervical collar applied [facility] 16:05 16:01 General: Appears ls4 ls4 03/03 01:53 03/02 17:00 Reassessment: Patient appears in no apparent distress at this time. Patient ls4 and/or family updated on plan of care and expected duration. Pain level reassessed. Patient is alert, oriented x 3, equal unlabored respirations, skin warm/dry/pink. ls4
--- NOTE | 2019-07-16 16:39 | EDPHYS ---
Physician Documentation [facility] Name: Deena Douglass Age: 49 yrs Sex: Female : 1970 Arrival Date: 07/16/2019 Time: 13:23 Bed 30 Private MD: ED Physician Michel Hughes HPI: 07/15 19:25 This 49 yrs old Female presents to ER via Ambulatory with complaints of Fall tw4 Injury. 19:25 Details of fall: The patient fell from an upright position, while standing. Onset: The tw4 symptoms/episode began/occurred today. Associated injuries: The patient sustained right scapular area. Unable to obtain HPI due to patient distress. Historical: - Allergies: 14:17 PENICILLINS; ss - PMHx: 14:17 Hypertension; ss - PSHx: 14:17 ; Hysterectomy; ss - Immunization history:: Adult Immunizations up to date. - Social history:: Smoking status: Patient denies any tobacco usage or history of. - Immunization history: Last tetanus immunization: unknown. ROS: 19:26 Constitutional: Negative for fever, chills, and weight loss, Eyes: Negative for injury, tw4 pain, redness, and discharge, Cardiovascular: Negative for chest pain, palpitations, and edema, Respiratory: Negative for shortness of breath, cough, wheezing, and pleuritic chest pain, Abdomen/GI: Negative for abdominal pain, nausea, vomiting, diarrhea, and constipation, Back: Negative for injury and pain, Skin: Negative for injury, rash, and discoloration, Neuro: Negative for headache, weakness, numbness, tingling, and seizure. 19:26 MS/extremity: Positive for injury or acute deformity, pain, tenderness. Exam: 19:26 Constitutional: This is a well developed, well nourished patient who is awake, alert, tw4 and in no acute distress. Head/Face: Normocephalic, atraumatic. Cardiovascular: Regular rate and rhythm with a normal S1 and S2. No gallops, murmurs, or rubs. Normal PMI, no JVD. No pulse deficits. Respiratory: Lungs have equal breath sounds bilaterally, clear to auscultation and percussion. No rales, rhonchi or wheezes noted. No increased work of breathing, no retractions or nasal flaring. Abdomen/GI: Soft, non-tender, with normal bowel sounds. No distension or tympany. No guarding or rebound. No evidence of tenderness throughout. Back: No spinal tenderness. No costovertebral tenderness. Full range of motion. MS/ Extremity: Pulses equal, no cyanosis. Neurovascular intact. Full, normal range of motion. 19:26 Neck: External neck: C-spine: C-collar placed in ED, Nexus Criteria: the patient has a distracting injury. 19:26 Musculoskeletal/extremity: Extremities: noted in the right scapular area: decreased ROM, pain. Vital Signs: 13:40 BP 142 / 84; Pulse 98; Resp 16; Temp 99.0(TE); Pulse Ox 99% on R/A; Weight 72.57 kg; ss Height 5 ft. 5 in. (165.10 cm); Pain 8/10; 14:40 BP 122 / 70; Pulse 78; Resp 16; Pulse Ox 99% on R/A; Pain 5/10; ls4 15:30 BP 129 / 72; Pulse 78; Resp 16; Pulse Ox 99% on R/A; Pain 3/10; ls4 16:45 BP 128 / 70; Pulse 78; Resp 16; Temp 98.4(O); Pulse Ox 99% on R/A; Pain 3/10; ls4 13:40 Body Mass Index 26.63 (72.57 kg, 165.10 cm) ss [place] Coma Score: 13:40 Eye Response: spontaneous(4). Verbal Response: oriented(5). Motor Response: obeys ss commands(6). Total: 15. Trauma Score (Adult): 13:40 Eye Response: spontaneous(1); Verbal Response: oriented(1); Motor Response: obeys ss commands(2); Systolic BP: > 89 mm Hg(4); Respiratory Rate: 10 to 29 per min(4); [place] Score: 15; Trauma Score: 12 MDM: 14:11 Patient medically screened. tw4 19:26 Differential diagnosis: closed head injury, fracture. Data reviewed: vital signs, tw4 nurses notes. Counseling: I had a detailed discussion with the patient and/or guardian regarding: the historical points, exam findings, and any diagnostic results supporting the discharge/admit diagnosis. Special discussion: I discussed with the patient/guardian in detail that at this point there is no indication for admission to the hospital. It is understood, however, that if the symptoms persist or worsen the patient needs to return immediately for re-evaluation. 07/15 14:11 Order name: CT C Spine; Complete Time: 16:35 tw4 07/15 14:11 Order name: Shoulder Right (2 View) XRAY; Complete Time: 16:35 tw4 07/15 14:11 Order name: Chest Single View XRAY; Complete Time: 16:35 tw4 07/15 14:12 Order name: CT Chest Wo Con; Complete Time: 16:35 tw4 07/15 14:19 Order name: CT Head Brain wo Cont; Complete Time: 16:35 tw4 Administered Medications: No medications were administered Disposition: 07/16/19 16:38 Discharged to Home. Impression: Contusion of right shoulder, Concussion with loss of consciousness of 30 minutes or less, Contusion of right front wall of thorax. - Condition is Stable. - Discharge Instructions: Contusion, Chest Contusion, Adult, Concussion, Adult, [id number]. - Prescriptions for Ibuprofen 800 mg Oral Tablet - take 1 tablet by ORAL route every 12 hours As needed take with food; 20 tablet. - Medication Reconciliation Form, Thank You Letter, Antibiotic Education, Prescription Opioid Use form. - Follow up: Private Physician; When: Upon discharge from the Emergency Department; Reason: Recheck today's complaints, Continuance of care, Re-evaluation by your physician. - Problem is new. - Symptoms have improved. Signatures: Dispatcher [employer] [facility] Mireya Mendez RN RN ss Michel Hughes MD MD tw4 Shannan Rodrigues RN RN ls4 Corrections: (The following items were deleted from the chart) 16:52 16:38 07/16/2019 16:38 Discharged to Home. Impression: Contusion of right shoulder; ls4 Concussion with loss of consciousness of 30 minutes or less; Contusion of right front wall of thorax. Condition is Stable. Forms are Medication Reconciliation Form, Thank You Letter, Antibiotic Education, Prescription Opioid Use. Follow up: Private Physician; When: Upon discharge from the Emergency Department; Reason: Recheck today's complaints, Continuance of care, Re-evaluation by your physician. Problem is new. Symptoms have improved. tw4
[2019-07-16 18:46] VITALS: BP 142/84; TEMP 99; O2SAT 99
== END 2019-07-16 16:52 | disposition home or self-care (01) ==
LOC: ER 13:21
DX: S06.0X1A Concussion with loss of consciousness of 30 minutes or less, initial encounter (principal); S40.011A Contusion of right shoulder, initial encounter; S20.211A Contusion of right front wall of thorax, initial encounter; W19.XXXA Unspecified fall, initial encounter; Y93.89 Activity, other specified; Y92.9 Unspecified place or not applicable; I10 Essential (primary) hypertension; Z88.0 Allergy status to penicillin
CPT/HCPCS: 70450; 71045; 71250; 72125; 99284